=== PATIENT | male | born 1945 | race Caucasian/White ===

== ENCOUNTER → 2018-05-01 01:02 | Outpatient (CLI) | payer MEDICARE, MEDICAID, SELFPAY ==
[2018-05-01] MEDS: Omnipaque 350 MG/ML 50 ML BTL IJ (08:37)
[2018-05-01 08:50] LABS: HCT 38.6 % (40.0-50.0); HGB 13.1 g/dL (13.5-17.5); Mean Corp. HGB Concentration 33.9 g/dL (32.0-36.0); Mean Corpuscular Hemoglobin 28.6 pg (27.0-33.0); Mean Corpuscular Volume 84.3 fL (80-95); Mean Platelet Volume 11.1 fL (8.0-11.0); Platelet Count 252 x1000/uL (130-400); RBC 4.58 m/cumm (4.50-6.00); White Blood Cell Count 6.41 k/cumm (4.4-10.8)
[2018-05-01 09:05] LABS: ALT 30 U/L (12-78); AST 25 U/L (15-37); Albumin 3.3 g/dL (3.4-5.0); Alkaline Phosphatase 72 U/L (46-116); Anion Gap 6.4 mmol/L (3-11); BUN 16 mg/dL (7-18); Bilirubin, Total 0.5 mg/dL (0.2-1.0); CO2 26.6 mmol/L (21.0-32.0); CREATININE 1.04 mg/dL (0.70-1.30); Calcium 8.8 mg/dL (8.5-10.1); Chloride 102 mmol/L (98-107); Glucose 143 mg/dL (70-100); Potassium 3.8 mmol/L (3.5-5.1); Sodium 135 mmol/L (136-145); Total Protein 7.6 g/dL (6.4-8.2)
[2018-05-01] MEDS: Omnipaque 350 MG/ML 100 ML BTL IJ (10:08)
[2018-05-01] MEDS: Breeza Beverage 473 ML BTL PO ×2 (10:30)
--- NOTE | 2018-05-01 10:30 | DI.RPTCT_ITS ---
SYMPTOM/DIAGNOSIS: ABD PAIN, LOWER r10.30, RECTAL/ANAL BLEEDING K62.5 CT ABDOMEN AND PELVIS: This study was carried out with intravenous administration of 100 cc Omnipaque 350 and oral ingestion of dilute barium. There is a 5.3 mm nodule in the right upper lobe and a 7.0 nodule in the left lower lobe. The visualized portions of the lung are otherwise unremarkable. There is a 3.3 x 2.1 x 3.3 cm irregular mass in the superior portion of the right hepatic lobe and a second mass measuring 2.1 x 2.3 cm is identified in the inferior portion of the right hepatic lobe. The gallbladder, pancreas and spleen are unremarkable. The kidneys and adrenals are unremarkable. There is no evidence of bowel obstruction. The appendix is normal. There is prominent wall thickening and findings suggesting a rectal mass. No other localized bowel abnormality is identified. The bladder is normal. The prostate is mildly enlarged. There is no evidence of free air or free fluid in the intraperitoneal space. Small bilateral inguinal hernias are identified. There are atherosclerotic changes involving the aorta without evidence of an aneurysm. Degenerative changes involving the lower dorsal and lumbar spine are apparent. There is no evidence of intra-abdominal or retroperitoneal adenopathy. Note is made of an enlarged right hayley-rectal lymph node. SUMMARY: Two hepatic masses are demonstrated as described above. In the superior right hepatic lobe there is a 2.1 x 3.3 cm mass, in the inferior portion of the right hepatic lobe there is a 2.1 x 2.4 cm mass. A tiny radiolucency is noted in the left hepatic lobe, too small to fully characterize but likely representing a cyst. Further assessment with a multiphasic CT examination is suggested. Note is made of prominent thickening of the rectal wall with a probable rectal mass. At least one enlarged lymph node is noted lying to the left of the rectum. There is no other definite evidence of adenopathy in the abdomen or pelvis. There are two hepatic masses as described above and two pulmonary nodules are identified. Further assessment with chest CT and a multiphasic abdominal CT is recommended.
== END ==
PROVIDERS: PCP Physician Assistant Medical; Visit Provider Physician Assistant Medical
DX: R10.30 Lower abdominal pain, unspecified (principal); K62.5 Hemorrhage of anus and rectum; R16.0 Hepatomegaly, not elsewhere classified; R91.8 Other nonspecific abnormal finding of lung field; K62.89 Other specified diseases of anus and rectum; N40.0 Benign prostatic hyperplasia without lower urinary tract symptoms; R59.0 Localized enlarged lymph nodes
CPT/HCPCS: 74177; Q9967; 80053; 85027; J3490

== ENCOUNTER → 2018-05-13 01:54 | Outpatient (CLI) | payer MEDICARE, MEDICAID, SELFPAY ==
--- NOTE | 2018-05-13 14:21 | DI.RPTCT_ITS ---
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 Images were performed from the clavicles through the level of the adrenals after IV contrast. A large low density area is seen in the upper right lobe of the liver consistent with a liver metastasis. An additional liver lesion is seen inferiorly, also consistent with a metastasis. There is a tiny lesion in the anterior left lobe of the liver, consistent with a cyst. There is an AP window lymph node measuring 1.3 cm in greatest dimension. There is an 8 mm irregular, spiculated lesion in the lateral right middle lobe. An additional 8 mm nodule is seen in the medial right middle lobe near the right heart. Other smaller nodules are seen more superiorly. Multiple small nodules are also seen in the right lower lobe. There is a 9 mm nodule in the left lower lobe and multiple other smaller nodules seen in the left upper and lower lobes. No pleural or pericardial effusions or infiltrates are seen. No bony abnormalities are identified. IMPRESSION: Multiple bilateral pulmonary metastases.
[2018-05-13] MEDS: Omnipaque 350 MG/ML 100 ML BTL IJ (14:54)
== END ==
PROVIDERS: PCP Physician Assistant Medical; Visit Provider Surgery
DX: C20 Malignant neoplasm of rectum (principal); C78.7 Secondary malignant neoplasm of liver and intrahepatic bile duct; C78.01 Secondary malignant neoplasm of right lung; C78.02 Secondary malignant neoplasm of left lung
CPT/HCPCS: 71260; J3490

== ENCOUNTER 2018-05-30 08:15 | Day surgery (SDC) | payer MEDICARE, MEDICAID, SELFPAY | END 2018-05-30 10:50 | disposition home or self-care (01) | LOC: SUR 08:20 | PROVIDERS: PCP Physician Assistant Medical; Referring Provider Physician Assistant Medical; Visit Provider Surgery | DX: R69 Illness, unspecified (principal) ==

== ENCOUNTER 2018-05-30 08:17 | PSDC | payer MEDICARE, MEDICAID, SELFPAY ==
--- NOTE | 2018-05-30 06:39 | W.PM.HP.N ---
Date of service: 05/30/18 Time of Service: 09:00 Assessment and Plan (1) Rectal cancer: Current visit: Yes Status: Acute P\\ Mediport Placement for chemotherapy Risks, benefits and complications include but are not limited to bleeding, pain, infection, dehiscence, malfunction, injury to vessels, pneumothorax and adverse reaction to the medications. Questions were entertained and answered to their satisfaction and they wished to proceed. No guarantees were given or implied. History of Present Illness Chief Complaint: rectal cancer Narrative: Mr. Sylvester is a pleasant 73 year old male who was recently diagnosed with stage 4 rectal cancer. He has seen Hematology/Oncology and is here today to have a mediport placed for chemotherapy. He is doing fairly well today. No complaints of chest pain or shortness of breath. CT scan done recently showed pulmonary metastases, pelvic lymphadenopathy involving the seminal vessels. He is able to go to the bathroom but it is frequent. The mass is circumferential. Review of Systems Review of Systems All systems reviewed & are unremarkable except as noted in HPI and below PFSH Family History Other Burkitt's lymphoma Heart disease Lung cancer Medical History Rectal cancer metastasized to lung (Acute) Social History household members: significant other housing: house lives independently: Yes number of children: 2 Smoking/Tobacco Use Status: Former Tobacco Use alcohol intake: never Surgical History Colonoscopy - MAC (05/07/18) Meds Home Medications Medication Instructions Recorded Confirmed Type Turmeric/Turmeric Root Extract 1 ea PO DAILY 05/03/18 05/29/18 History [Turmeric 500 mg Capsule] omega-3 fatty acids-fish oil 1 ea PO DAILY 05/03/18 05/29/18 History Allergies Allergy/AdvReac Type Severity Reaction Status Date / Time No Known Allergies Allergy Unverified 05/30/18 08:35 Exam Resp Auscultation: clear to auscultation bilaterally Cardio Rate: regular rate Rhythm: regular rhythm GI Palpation: soft Auscultation: normal bowel sounds
--- NOTE | 2018-05-30 07:04 | W.PM.DSUDISC ---
Discharge Plan Discharge Details Reason For Visit: PORT- A - CATH PLACEMENT Attending Provider: Soha Osullivan Primary Care Provider: Hermes Dejesus V Disposition Patient Disposition: HOME Condition: Fair Home Meds and New Rx's Prescriptions: Continue omega-3 fatty acids-fish oil 1 EACH capsule 1 ea PO DAILY RF: 0 Turmeric/Turmeric Root Extract [Turmeric 500 mg Capsule] 1 EACH Capsule 1 ea PO DAILY RF: 0 Discharge Instructions Instructions: How to Care for Your Implanted Venous Access Port (DC) Additional Instructions: Please call or go to the ED if you develop: fevers >101.5 Nausea or Vomiting redness and swelling around the wound thick purulent discharge from the wound Other: May shower tonight Do not keep arms above your head for long periods of times. If you develop swelling in the left arm please call your manager advanced as you may have developed a clot. Stand Alone Forms: DSU Post op Instructions, Donavon Montes (DSU) Print Language: Indonesian Activity:: Activity as Tolerated Activity:: Activity as Tolerated Diet:: As Tolerated Discharge Orders Discharge Orders: Discharge Order (Routine); Ordered 05/30/18 Ordered By: Soha Osullivan DS: Diagnosis Discharge Diagnosis (1) Rectal cancer: Status: Acute
--- NOTE | 2018-05-30 07:07 | PDOC.DSDIS_ITS ---
Discharge Plan Discharge Details Reason For Visit: PORT- A - CATH PLACEMENT Attending Provider: Soha Osullivan Primary Care Provider: Hermes Dejesus V Disposition Patient Disposition: HOME Condition: Fair Home Meds and New Rx's Prescriptions: Continue omega-3 fatty acids-fish oil 1 EACH capsule 1 ea PO DAILY RF: 0 Turmeric/Turmeric Root Extract [Turmeric 500 mg Capsule] 1 EACH Capsule 1 ea PO DAILY RF: 0 Discharge Instructions Instructions: How to Care for Your Implanted Venous Access Port (DC) Additional Instructions: Please call or go to the ED if you develop: fevers >101.5 Nausea or Vomiting redness and swelling around the wound thick purulent discharge from the wound Other: May shower tonight Do not keep arms above your head for long periods of times. If you develop swelling in the left arm please call your comic illustrator as you may have developed a clot. Stand Alone Forms: DSU Post op Instructions, Donavon Montes (DSU) Print Language: Frisian Activity:: Activity as Tolerated Activity:: Activity as Tolerated Diet:: As Tolerated Discharge Orders Discharge Orders: Discharge Order (Routine); Ordered 05/30/18 Ordered By: Soha Osullivan DS: Diagnosis Discharge Diagnosis (1) Rectal cancer: Status: Acute
[2018-05-30 08:39] VITALS: BP 140/81; PULSE 68; RESP 16; TEMP 36.7; O2SAT 98
[2018-05-30] MEDS: Lactated Ringers 1,000 ML 80 ML IV (09:11)
--- NOTE | 2018-05-30 09:37 | DI.RAD_ITS ---
SYMPTOM/DIAGNOSIS: PORT PLACEMENT, RECTAL CA C-ARM: Fluoroscopy Time: 8 seconds Fluoroscopy was provided in the OR for Dr. Osullivan. Hard copy images show placement of a line with the tip projecting in the lower SVC. Please see procedure note for details.
[2018-05-30] MEDS: Lidocaine 2% Pres-Free 5 ML VIAL 30 ML (10:04)
[2018-05-30] MEDS: Normal Saline 50 ML (10:05)
[2018-05-30] MEDS: Heparin 500 UNITS/5 ML SYRINGE (10:17)
--- NOTE | 2018-05-30 10:30 | DI.RAD_ITS ---
SYMPTOM/DIAGNOSIS: RECTAL CA, PORTACATH PLACEMEN PORTABLE AP CHEST: A port has been inserted via the left subclavian. The tip lies in the lower SVC. No pneumothorax is seen. The lung apices are coned from the image. The lungs appear clear. The heart size is normal. IMPRESSION: Satisfactory Port placement.
--- NOTE | 2018-05-30 10:33 | NUR.NOTE ---
1024: Pt. sleepy but following commands. Radiology contacted for portable chest xray. Call forte within reach.Nursing Note:
[2018-05-30 10:55] VITALS: BP 126/74; PULSE 63; RESP 16; TEMP 36.6; O2SAT 97
--- NOTE | 2018-05-30 10:57 | W.PM.OP ---
Operative Note Date of procedure: 05/30/18 Pre-op diagnosis: rectal cancer Post-op diagnosis: same Procedure: Mediport placement in the left subclavian vein Anesthesia: MAC Estimated blood loss (mL): 3 Pathology: none sent Complications: None Patient was transported to: same day Patient's condition: stable Implants: Power Port Indications: Mr. Sylvester is a pleasant 72 year old who was just diagnosed with stage 4 rectal cancer. he is due to start chemotherapy next week and I was asked to place a Mediport. Risks, benefits and complications reviewed. Complications include but are not limited to bleeding, pain, infection, pneumothorax, wound dehiscence, skin necrosis, malfunction and injury to the subclavian vein. Procedure Description: After informed consent was obtained patient was taken to the operating room and placed in a supine position. Monitors were applied in his arms were tucked next to him. His left chest wall was prepped and draped in the sterile surgical fashion. A timeout was done and the patient's name date of procedure site and type allergies to medications antibiotic given were all reviewed. At this point percent Marcaine with epi was injected just underneath the clavicle. The Marcaine and epinephrine were also injected about 3 inches below the clavicle. Port-A-Cath cath kit was opened. The needle was used to find the left subclavian vein without any difficulty. The guidewire was placed without any resistance and the needle was removed. A chest film was done with fluoroscopy and it showed the guidewire in good position. A small incision was made at the guide wire entrance. Another 2-1/2 cm incision was made about 3 inches below the clavicle and a pocket was created with cautery. Next the catheter was tunneled from guide wire entrance to the pocket. The sheath and dilator were then placed over the guide wire into the subclavian vein dilator and guide wire were then both removed. The catheter was then guided through the sheath into the subclavian vein. Fluoroscopy was again used to look for the location of the catheter. The tip of the catheter was just above the atrium. At this point the catheter was attached to the port. The port was placed into the pocket and I made sure that the catheter was not kinked. The port was then flushed with heparin. The incision was closed with 4-0 Vicryl. The skin was cleaned and dried and skin affix was applied to both incisions. At this point the patient was woken up and taken back to same day surgery in stable condition. Sponge instrument and needle counts were correct at the end of the case. Chest x-ray is pending at the time of this dictation.
== END 2018-05-30 11:38 | disposition home or self-care (01) ==
PROVIDERS: PCP Physician Assistant Medical; Visit Provider Surgery
PROC: (CPT 36561; principal; 2018-05-30 09:15)
DX: C20 Malignant neoplasm of rectum (principal); Z45.2 Encounter for adjustment and management of vascular access device
CPT/HCPCS: 36561; 71045; 77001; NC; C1788; J0690; J2250; J3010

== ENCOUNTER 2018-06-21 00:41 | Outpatient (RCR) | payer MEDICARE, MEDICAID, SELFPAY ==
[2018-06-07] MEDS: Normal Saline Flush 10 ML SYR IVP (08:06)
[2018-06-07 08:29] LABS: Abs Immature Grans 0.01 k/cumm (0.0-0.09); Absolute Basophil Count 0.06 k/cumm (0.0-0.2); Absolute Eosinophil Count 0.34 k/cumm (0.0-0.7); Absolute Lymphocyte Count 1.44 k/cumm (1.2-3.4); Absolute Monocyte Count 0.65 k/cumm (0.11-0.7); Absolute Neutrophil Count 3.89 k/cumm (1.2-6.7); Basophils % 0.9; Eosinophils % 5.3; HCT 37.6 % (40.0-50.0); HGB 12.7 g/dL (13.5-17.5); Immature Grans % 0.2; Lymphocytes % 22.5; Mean Corp. HGB Concentration 33.8 g/dL (32.0-36.0); Mean Corpuscular Hemoglobin 28.5 pg (27.0-33.0); Mean Corpuscular Volume 84.5 fL (80-95); Mean Platelet Volume 12.1 fL (8.0-11.0); Monocytes % 10.2; Neutrophils % 60.9; Platelet Count 226 x1000/uL (130-400); RBC 4.45 m/cumm (4.50-6.00); White Blood Cell Count 6.39 k/cumm (4.4-10.8)
[2018-06-07 08:40] LABS: ALT 29 U/L (12-78); AST 23 U/L (15-37); Albumin 3.3 g/dL (3.4-5.0); Alkaline Phosphatase 77 U/L (46-116); Anion Gap 8.8 mmol/L (3-11); BUN 24 mg/dL (7-18); Bilirubin, Total 0.7 mg/dL (0.2-1.0); CO2 27.2 mmol/L (21.0-32.0); CREATININE 0.89 mg/dL (0.70-1.30); Calcium 8.5 mg/dL (8.5-10.1); Chloride 103 mmol/L (98-107); Glucose 159 mg/dL (70-100); Sodium 139 mmol/L (136-145); Total Protein 7.5 g/dL (6.4-8.2)
[2018-06-10 10:41] LABS: CEA 9.5 ng/ml
[2018-06-21] MEDS: Normal Saline Flush 10 ML SYR IVP (07:05)
[2018-06-21 07:26] LABS: Absolute Basophil Count 0.05 k/cumm (0.0-0.2); Absolute Eosinophil Count 0.26 k/cumm (0.0-0.7); Absolute Lymphocyte Count 1.37 k/cumm (1.2-3.4); Absolute Monocyte Count 0.55 k/cumm (0.11-0.7); Absolute Neutrophil Count 1.99 k/cumm (1.2-6.7); Basophils % 1.2; Eosinophils % 6.2; HCT 35.6 % (40.0-50.0); HGB 12.1 g/dL (13.5-17.5); Lymphocytes % 32.5; Mean Corpuscular Hemoglobin 28.6 pg (27.0-33.0); Mean Corpuscular Volume 84.2 fL (80-95); Mean Platelet Volume 10.6 fL (8.0-11.0); Neutrophils % 47.1; Platelet Count 176 x1000/uL (130-400); RBC 4.23 m/cumm (4.50-6.00); RBC Distribution Width 12.9 % (11.8-14.1); White Blood Cell Count 4.22 k/cumm (4.4-10.8)
[2018-06-21 07:36] LABS: ALT 30 U/L (12-78); AST 19 U/L (15-37); Albumin 3.2 g/dL (3.4-5.0); Alkaline Phosphatase 93 U/L (46-116); Anion Gap 10.1 mmol/L (3-11); BUN 21 mg/dL (7-18); Bilirubin, Total 0.5 mg/dL (0.2-1.0); CO2 25.9 mmol/L (21.0-32.0); CREATININE 1.25 mg/dL (0.70-1.30); Calcium 8.8 mg/dL (8.5-10.1); Chloride 101 mmol/L (98-107); Estimated GFR 56.62 (mL/min/1.73m2); Glucose 183 mg/dL (70-100); Sodium 137 mmol/L (136-145)
[2018-06-24 10:46] LABS: CEA 6.9 ng/ml
== END 2018-06-23 23:59 | disposition home or self-care (01) ==
LOC: INF 00:41
PROVIDERS: PCP Physician Assistant Medical; Visit Provider Internal Medicine Hematology & Oncology
DX: C20 Malignant neoplasm of rectum (principal); C78.7 Secondary malignant neoplasm of liver and intrahepatic bile duct; Z45.2 Encounter for adjustment and management of vascular access device
CPT/HCPCS: 36415; 36591; 80053; 82378; 85025

== ENCOUNTER 2018-07-19 01:10 | Outpatient (RCR) | payer MEDICARE, MEDICAID, SELFPAY ==
[2018-07-05] MEDS: Normal Saline Flush 10 ML SYR IVP (08:45)
[2018-07-05 09:05] LABS: Abs Immature Grans 0.01 k/cumm (0.0-0.09); Absolute Basophil Count 0.06 k/cumm (0.0-0.2); Absolute Eosinophil Count 0.07 k/cumm (0.0-0.7); Absolute Lymphocyte Count 1.27 k/cumm (1.2-3.4); Absolute Monocyte Count 0.59 k/cumm (0.11-0.7); Absolute Neutrophil Count 1.35 k/cumm (1.2-6.7); Basophils % 1.8; Eosinophils % 2.1; HCT 35.5 % (40.0-50.0); HGB 12.4 g/dL (13.5-17.5); Immature Grans % 0.3; Lymphocytes % 37.9; Mean Corp. HGB Concentration 34.9 g/dL (32.0-36.0); Mean Corpuscular Volume 82.9 fL (80-95); Mean Platelet Volume 10.5 fL (8.0-11.0); Monocytes % 17.6; Neutrophils % 40.3; Platelet Count 147 x1000/uL (130-400); RBC 4.28 m/cumm (4.50-6.00); RBC Distribution Width 13.7 % (11.8-14.1); White Blood Cell Count 3.35 k/cumm (4.4-10.8)
[2018-07-05 09:20] LABS: ALT 34 U/L (12-78); AST 21 U/L (15-37); Albumin 3.2 g/dL (3.4-5.0); Alkaline Phosphatase 96 U/L (46-116); Anion Gap 9.2 mmol/L (3-11); BUN 16 mg/dL (7-18); Bilirubin, Total 0.5 mg/dL (0.2-1.0); CO2 25.8 mmol/L (21.0-32.0); CREATININE 0.99 mg/dL (0.70-1.30); Calcium 8.6 mg/dL (8.5-10.1); Chloride 103 mmol/L (98-107); Glucose 166 mg/dL (70-100); Potassium 3.9 mmol/L (3.5-5.1); Sodium 138 mmol/L (136-145); Total Protein 7.1 g/dL (6.4-8.2)
[2018-07-05 09:24] LABS: Diff Comment Diff Reviewed; RBC Morphology Normal
[2018-07-08 10:06] LABS: CEA 5.3 ng/ml
[2018-07-19] MEDS: Normal Saline Flush 10 ML SYR IVP (07:30)
[2018-07-19 08:07] LABS: Absolute Basophil Count 0.06 k/cumm (0.0-0.2); Absolute Lymphocyte Count 1.23 k/cumm (1.2-3.4); Absolute Monocyte Count 0.44 k/cumm (0.11-0.7); Absolute Neutrophil Count 0.83 k/cumm (1.2-6.7); Basophils % 2.3; Eosinophils % 3.8; HCT 36.7 % (40.0-50.0); HGB 12.4 g/dL (13.5-17.5); Lymphocytes % 46.2; Mean Corp. HGB Concentration 33.8 g/dL (32.0-36.0); Mean Corpuscular Hemoglobin 28.5 pg (27.0-33.0); Mean Corpuscular Volume 84.4 fL (80-95); Mean Platelet Volume 10.8 fL (8.0-11.0); Monocytes % 16.5; Neutrophils % 31.2; Platelet Count 115 x1000/uL (130-400); RBC 4.35 m/cumm (4.50-6.00); RBC Distribution Width 15.1 % (11.8-14.1); White Blood Cell Count 2.66 k/cumm (4.4-10.8)
[2018-07-19 08:24] LABS: ALT 39 U/L (12-78); AST 27 U/L (15-37); Albumin 3.2 g/dL (3.4-5.0); Alkaline Phosphatase 76 U/L (46-116); Anion Gap 11.6 mmol/L (3-11); BUN 17 mg/dL (7-18); CO2 25.4 mmol/L (21.0-32.0); CREATININE 1.11 mg/dL (0.70-1.30); Calcium 8.5 mg/dL (8.5-10.1); Chloride 101 mmol/L (98-107); Glucose 203 mg/dL (70-100); Sodium 138 mmol/L (136-145); Total Protein 6.8 g/dL (6.4-8.2)
[2018-07-22 05:39] LABS: Vitamin D 25 Total 17.6 ng/ml (30-100)
[2018-07-22 10:12] LABS: CEA 4.6 ng/ml
[2018-07-29 14:55] LABS: 1,25-Dihydroxyvitamin D 41 pg/mL (18-64)
== END 2018-07-24 23:59 | disposition home or self-care (01) ==
LOC: INF 01:10
PROVIDERS: PCP Physician Assistant Medical; Visit Provider Internal Medicine Hematology & Oncology
DX: C20 Malignant neoplasm of rectum (principal); C78.7 Secondary malignant neoplasm of liver and intrahepatic bile duct; E55.9 Vitamin D deficiency, unspecified; Z45.2 Encounter for adjustment and management of vascular access device
CPT/HCPCS: 36591; 80053; 82306; 82378; 82652; 85025

== ENCOUNTER 2018-08-12 00:29 | Outpatient (CLI) | payer MEDICARE, MEDICAID, SELFPAY ==
--- NOTE | 2018-08-12 11:44 | DI.CT_ITS ---
SYMPTOM/DIAGNOSIS: ON TREATMENT FOR METASTATIC COLON CA, ASSESS RESPONSE CHEST/ABDOMEN AND PELVIC CT: CT examination of the chest, abdomen and pelvis was performed with a bolus infusion of 100 cc's of Omnipaque 350 and ingestion of dilute barium. Current examination is compared with previous examination of 05/13/2018 and 05/01/2018. Biphasic hepatic imaging was obtained. There are multiple bilateral intrapulmonary nodules, these appear mostly unchanged or of decreased radiodensity in comparison with previous examination of 05/13, cavitation is noted in the left lower lobe nodule which may indicate necrosis. A 7 mm. in diameter left basilar intrapulmonary nodule is unchanged in appearance. No significant interval growth in any nodule is identified. No evidence of pulmonary embolic disease or other major vascular abnormality. The largest visible mediastinal lymph node is a 19 mm. in diameter AP window node slightly more prominent than on the previous examination but grossly unchanged in maximum size. No pleural effusion is seen. Tracheobronchial tree appears intact. No axillary or supraclavicular adenopathy. The previously described hepatic lesions seen on examination of 05/01/18 are again noted. These measured 33 and 24 mm. in diameter on the previous examination and are essentially unchanged in size on the current study measuring about 32 and 29 mm. in diameter on the current study. Spleen is unremarkable in appearance. No definite new hepatic lesion is seen. Pancreas is unremarkable in appearance. Adrenals and kidneys appear normal. Abdominal aorta is of normal diameter and no major vascular abnormality is seen. Small bilateral fat containing inguinal hernias noted. Mildly enlarged lymph nodes are noted superior to the celiac axis measuring about 15 mm. in greatest diameter which were not enlarged on the previous examination. Subtle adenopathy is noted in the iliac chains bilaterally a little more prominent than on the previous examination. Enlarged nodes are also seen adjacent to the rectum, the largest of which measures about 11 mm. in greatest diameter on today 's examination, grossly unchanged from the previous examination.. No evidence of bowel obstruction. CONCLUSION: 1. Multiple intrapulmonary nodules which appear grossly unchanged in size in comparison with the previous examination with decreased radiodensity of several nodules including a cavitating nodule probably representing necrosis. No new nodules or gross enlargement is seen. 2. No gross interval change in appearance of presumed right lobe hepatic metastases. 3. Increased annmarie prominence in portal/celiac axis nodes in the upper abdomen. 4. No gross interval change in adenopathy in the pelvis.
[2018-08-12] MEDS: Omnipaque 350 MG/ML 100 ML BTL IV (11:57)
== END 2018-08-12 00:49 ==
PROVIDERS: PCP Physician Assistant Medical; Visit Provider Nurse Practitioner Adult Health
DX: C20 Malignant neoplasm of rectum (principal); C78.7 Secondary malignant neoplasm of liver and intrahepatic bile duct; C78.01 Secondary malignant neoplasm of right lung; C78.02 Secondary malignant neoplasm of left lung; R91.8 Other nonspecific abnormal finding of lung field; R59.0 Localized enlarged lymph nodes; Z92.21 Personal history of antineoplastic chemotherapy
CPT/HCPCS: 36415; 74177; 96523; 71260; 82565; J3490

== ENCOUNTER 2018-08-16 00:46 | Outpatient (RCR) | payer MEDICARE, MEDICAID, SELFPAY ==
[2018-07-26] MEDS: Normal Saline Flush 10 ML SYR IVP (08:05)
[2018-07-26 08:27] LABS: Abs Immature Grans 0.04 k/cumm (0.0-0.09); Absolute Basophil Count 0.08 k/cumm (0.0-0.2); Absolute Eosinophil Count 0.16 k/cumm (0.0-0.7); Absolute Lymphocyte Count 1.55 k/cumm (1.2-3.4); Absolute Monocyte Count 1.03 k/cumm (0.11-0.7); Absolute Neutrophil Count 0.95 k/cumm (1.2-6.7); Basophils % 2.1; Eosinophils % 4.2; HCT 37.9 % (40.0-50.0); HGB 13.1 g/dL (13.5-17.5); Lymphocytes % 40.7; Mean Corp. HGB Concentration 34.6 g/dL (32.0-36.0); Mean Corpuscular Hemoglobin 29.6 pg (27.0-33.0); Mean Corpuscular Volume 85.7 fL (80-95); Platelet Count 210 x1000/uL (130-400); RBC 4.42 m/cumm (4.50-6.00); RBC Distribution Width 16.4 % (11.8-14.1); White Blood Cell Count 3.81 k/cumm (4.4-10.8)
[2018-07-26 08:42] LABS: ALT 42 U/L (12-78); AST 29 U/L (15-37); Albumin 3.2 g/dL (3.4-5.0); Alkaline Phosphatase 84 U/L (46-116); Anion Gap 10.2 mmol/L (3-11); BUN 13 mg/dL (7-18); Bilirubin, Total 0.6 mg/dL (0.2-1.0); CO2 26.8 mmol/L (21.0-32.0); CREATININE 1.19 mg/dL (0.70-1.30); Calcium 8.9 mg/dL (8.5-10.1); Chloride 99 mmol/L (98-107); Estimated GFR 59.76 (mL/min/1.73m2); Glucose 230 mg/dL (70-100); Potassium 4.2 mmol/L (3.5-5.1); Sodium 136 mmol/L (136-145)
[2018-08-02] MEDS: Normal Saline Flush 10 ML SYR IVP (08:15)
[2018-08-02 08:40] LABS: Abs Immature Grans 0.04 k/cumm (0.0-0.09); Absolute Basophil Count 0.05 k/cumm (0.0-0.2); Absolute Eosinophil Count 0.14 k/cumm (0.0-0.7); Absolute Monocyte Count 0.78 k/cumm (0.11-0.7); Absolute Neutrophil Count 3.54 k/cumm (1.2-6.7); Basophils % 0.8; Eosinophils % 2.2; HCT 39.2 % (40.0-50.0); HGB 13.3 g/dL (13.5-17.5); Immature Grans % 0.6; Lymphocytes % 28.3; Mean Corp. HGB Concentration 33.9 g/dL (32.0-36.0); Mean Corpuscular Hemoglobin 29.4 pg (27.0-33.0); Mean Corpuscular Volume 86.7 fL (80-95); Mean Platelet Volume 11.5 fL (8.0-11.0); Monocytes % 12.3; Neutrophils % 55.8; Platelet Count 173 x1000/uL (130-400); RBC 4.52 m/cumm (4.50-6.00); RBC Distribution Width 16.7 % (11.8-14.1); White Blood Cell Count 6.35 k/cumm (4.4-10.8)
[2018-08-02 09:01] LABS: ALT 40 U/L (12-78); AST 29 U/L (15-37); Albumin 3.2 g/dL (3.4-5.0); Alkaline Phosphatase 76 U/L (46-116); Anion Gap 9.6 mmol/L (3-11); BUN 18 mg/dL (7-18); Bilirubin, Total 0.4 mg/dL (0.2-1.0); CO2 26.4 mmol/L (21.0-32.0); CREATININE 1.05 mg/dL (0.70-1.30); Calcium 8.8 mg/dL (8.5-10.1); Chloride 102 mmol/L (98-107); Glucose 170 mg/dL (70-100); Sodium 138 mmol/L (136-145); Total Protein 7.1 g/dL (6.4-8.2)
[2018-08-05 10:01] LABS: CEA 3.9 ng/ml
[2018-08-12] MEDS: Normal Saline Flush 10 ML SYR IVP (09:10)
[2018-08-12] MEDS: Heparin 500 UNITS/5 ML SYRINGE IV (10:10)
[2018-08-12 10:47] LABS: CREATININE 1.04 mg/dL (0.70-1.30)
[2018-08-16] MEDS: Normal Saline Flush 10 ML SYR IVP (10:12)
[2018-08-16] MEDS: Heparin 500 UNITS/5 ML SYRINGE IV (10:13)
[2018-08-16 10:17] LABS: Abs Immature Grans 0.22 k/cumm (0.0-0.09); Absolute Eosinophil Count 0.43 k/cumm (0.0-0.7); Absolute Lymphocyte Count 2.33 k/cumm (1.2-3.4); Absolute Monocyte Count 1.12 k/cumm (0.11-0.7); Basophils % 0.9; Eosinophils % 3.4; HGB 13.5 g/dL (13.5-17.5); Immature Grans % 1.7; Lymphocytes % 18.3; Mean Corp. HGB Concentration 34.6 g/dL (32.0-36.0); Mean Corpuscular Hemoglobin 30.3 pg (27.0-33.0); Mean Corpuscular Volume 87.4 fL (80-95); Mean Platelet Volume 11.3 fL (8.0-11.0); Monocytes % 8.8; Neutrophils % 66.9; Platelet Count 119 x1000/uL (130-400); RBC 4.46 m/cumm (4.50-6.00); RBC Distribution Width 17.7 % (11.8-14.1); White Blood Cell Count 12.73 k/cumm (4.4-10.8)
[2018-08-16 10:19] LABS: Absolute Basophil Count 0.11 k/cumm (0.0-0.2); Absolute Neutrophil Count 8.52 k/cumm (1.2-6.7)
[2018-08-16 10:32] LABS: ALT 37 U/L (12-78); AST 24 U/L (15-37); Albumin 3.6 g/dL (3.4-5.0); Alkaline Phosphatase 138 U/L (46-116); Anion Gap 10.6 mmol/L (3-11); BUN 19 mg/dL (7-18); Bilirubin, Total 0.5 mg/dL (0.2-1.0); CO2 25.4 mmol/L (21.0-32.0); CREATININE 1.11 mg/dL (0.70-1.30); Chloride 103 mmol/L (98-107); Glucose 140 mg/dL (70-100); Potassium 4.2 mmol/L (3.5-5.1); Sodium 139 mmol/L (136-145); Total Protein 7.4 g/dL (6.4-8.2)
[2018-08-19 10:38] LABS: CEA 4.7 ng/ml
== END 2018-08-23 23:59 | disposition home or self-care (01) ==
LOC: INF 00:46
PROVIDERS: PCP Physician Assistant Medical; Visit Provider Internal Medicine Hematology & Oncology
DX: C20 Malignant neoplasm of rectum (principal); C78.7 Secondary malignant neoplasm of liver and intrahepatic bile duct; Z45.2 Encounter for adjustment and management of vascular access device
CPT/HCPCS: 36415; 36591; 80053; 96523; 82378; 82565; 85025

== ENCOUNTER 2018-09-13 01:31 | Outpatient (RCR) | payer MEDICARE, MEDICAID, SELFPAY ==
[2018-08-30] MEDS: Normal Saline Flush 10 ML SYR IVP (08:35)
[2018-08-30 08:39] LABS: Abs Immature Grans 0.65 k/cumm (0.0-0.09); HCT 38.6 % (40.0-50.0); HGB 13.3 g/dL (13.5-17.5); Mean Corp. HGB Concentration 34.5 g/dL (32.0-36.0); Mean Corpuscular Hemoglobin 30.5 pg (27.0-33.0); Mean Corpuscular Volume 88.5 fL (80-95); Mean Platelet Volume 11.3 fL (8.0-11.0); Platelet Count 110 x1000/uL (130-400); RBC 4.36 m/cumm (4.50-6.00); RBC Distribution Width 18.7 % (11.8-14.1); White Blood Cell Count 15.75 k/cumm (4.4-10.8)
[2018-08-30 08:50] LABS: Absolute Basophil Count 0.16 k/cumm (0.0-0.2)
[2018-08-30 08:54] LABS: ALT 50 U/L (12-78); AST 33 U/L (15-37); Albumin 3.4 g/dL (3.4-5.0); Alkaline Phosphatase 179 U/L (46-116); Anion Gap 9.3 mmol/L (3-11); BUN 17 mg/dL (7-18); Bilirubin, Total 0.6 mg/dL (0.2-1.0); CO2 25.7 mmol/L (21.0-32.0); CREATININE 1.21 mg/dL (0.70-1.30); Calcium 8.8 mg/dL (8.5-10.1); Chloride 102 mmol/L (98-107); Estimated GFR 58.62 (mL/min/1.73m2); Glucose 197 mg/dL (70-100); Potassium 3.7 mmol/L (3.5-5.1); Sodium 137 mmol/L (136-145); Total Protein 6.9 g/dL (6.4-8.2)
[2018-08-30 09:00] LABS: Absolute Lymphocyte Count 2.05 k/cumm (1.2-3.4); Absolute Monocyte Count 0.95 k/cumm (0.11-0.7); Absolute Neutrophil Count 12.29 k/cumm (1.2-6.7)
[2018-08-30 09:01] LABS: Absolute Eosinophil Count 0.16 k/cumm (0.0-0.7); Anisocytosis 1+; Diff Comment Diff Reviewed; Polychromasia Present
[2018-09-02 09:37] LABS: CEA 4.5 ng/ml
[2018-09-13] MEDS: Normal Saline Flush 10 ML SYR IVP (10:37)
[2018-09-13] MEDS: Heparin 500 UNITS/5 ML SYRINGE IV (10:37)
[2018-09-13 11:02] LABS: Abs Immature Grans 0.66 k/cumm (0.0-0.09); HCT 39.6 % (40.0-50.0); HGB 13.7 g/dL (13.5-17.5); Mean Corp. HGB Concentration 34.6 g/dL (32.0-36.0); Mean Corpuscular Hemoglobin 31.3 pg (27.0-33.0); Mean Corpuscular Volume 90.4 fL (80-95); Mean Platelet Volume 11.2 fL (8.0-11.0); RBC 4.38 m/cumm (4.50-6.00); RBC Distribution Width 18.9 % (11.8-14.1); White Blood Cell Count 18.58 k/cumm (4.4-10.8)
[2018-09-13 11:17] LABS: ALT 70 U/L (12-78); AST 41 U/L (15-37); Albumin 3.5 g/dL (3.4-5.0); Alkaline Phosphatase 231 U/L (46-116); Anion Gap 9.9 mmol/L (3-11); BUN 16 mg/dL (7-18); Bilirubin, Total 0.7 mg/dL (0.2-1.0); CO2 26.1 mmol/L (21.0-32.0); CREATININE 1.21 mg/dL (0.70-1.30); Calcium 9.3 mg/dL (8.5-10.1); Chloride 103 mmol/L (98-107); Estimated GFR 58.62 (mL/min/1.73m2); Glucose 189 mg/dL (70-100); Sodium 139 mmol/L (136-145); Total Protein 7.2 g/dL (6.4-8.2)
[2018-09-13 11:28] LABS: Platelet Count 95 x1000/uL (130-400)
[2018-09-13 11:29] LABS: Absolute Eosinophil Count 0.37 k/cumm (0.0-0.7); Absolute Lymphocyte Count 2.79 k/cumm (1.2-3.4); Absolute Monocyte Count 1.49 k/cumm (0.11-0.7); Absolute Neutrophil Count 13.38 k/cumm (1.2-6.7); Anisocytosis 2+; Atypical Lymphocytes % 1; Diff Comment Manual Differential
[2018-09-13 11:30] LABS: Polychromasia Present
[2018-09-16 10:14] LABS: CEA 4.2 ng/ml
[2018-09-19 10:01] LABS: Abs Immature Grans 0.11 k/cumm (0.0-0.09); Absolute Eosinophil Count 0.37 k/cumm (0.0-0.7); Absolute Neutrophil Count 8.83 k/cumm (1.2-6.7); Basophils % 0.8; Eosinophils % 2.9; HCT 39.2 % (40.0-50.0); HGB 13.5 g/dL (13.5-17.5); Immature Grans % 0.9; Lymphocytes % 16.7; Mean Corp. HGB Concentration 34.4 g/dL (32.0-36.0); Mean Corpuscular Hemoglobin 31.6 pg (27.0-33.0); Mean Corpuscular Volume 91.8 fL (80-95); Mean Platelet Volume 12.6 fL (8.0-11.0); Monocytes % 8.7; Platelet Count 126 x1000/uL (130-400); RBC 4.27 m/cumm (4.50-6.00); RBC Distribution Width 18.8 % (11.8-14.1); White Blood Cell Count 12.61 k/cumm (4.4-10.8)
[2018-09-19 10:05] LABS: Absolute Lymphocyte Count 2.11 k/cumm (1.2-3.4)
[2018-09-19 10:15] LABS: ALT 53 U/L (12-78); AST 32 U/L (15-37); Albumin 3.4 g/dL (3.4-5.0); Alkaline Phosphatase 149 U/L (46-116); Anion Gap 10.9 mmol/L (3-11); BUN 20 mg/dL (7-18); Bilirubin, Total 0.7 mg/dL (0.2-1.0); CO2 25.1 mmol/L (21.0-32.0); CREATININE 1.02 mg/dL (0.70-1.30); Chloride 102 mmol/L (98-107); Glucose 169 mg/dL (70-100); Potassium 3.8 mmol/L (3.5-5.1); Sodium 138 mmol/L (136-145); Total Protein 7.1 g/dL (6.4-8.2)
== END 2018-09-23 23:59 | disposition home or self-care (01) ==
LOC: INF 01:31
PROVIDERS: PCP Physician Assistant Medical; Visit Provider Internal Medicine Hematology & Oncology
DX: C20 Malignant neoplasm of rectum (principal); C78.7 Secondary malignant neoplasm of liver and intrahepatic bile duct
CPT/HCPCS: 36591; 80053; 82378; 85025

== ENCOUNTER 2018-09-19 09:58 | Outpatient (REF) | payer MEDICARE, MEDICAID, SELFPAY | END 2018-09-19 10:18 | LOC: LBN 09:58 | PROVIDERS: PCP Physician Assistant Medical; Visit Provider Internal Medicine Hematology & Oncology | DX: C20 Malignant neoplasm of rectum (principal); C78.7 Secondary malignant neoplasm of liver and intrahepatic bile duct ==

== ENCOUNTER 2018-10-14 00:39 | Outpatient (CLI) | payer MEDICARE, MEDICAID, SELFPAY ==
--- NOTE | 2018-10-14 14:00 | DI.CT_ITS ---
SYMPTOMS/DIAGNOSIS: STAGE IV COLON CA WITH METS TO LUNG, C18.9, C78.00, ON CHEMO, RESTAGING CT SCAN OF THE CHEST, ABDOMEN AND PELVIS: CT scan of the chest, abdomen and pelvis was performed following the uneventful administration of intravenous and oral contrast material. Comparison is 08/12/18. CT SCAN OF THE ABDOMEN AND PELVIS: The liver is normal in size. There are again seen hepatic masses. The mass in the dome of the right lobe of the liver is again seen. It measures 3.2 cm in AP diameter which is unchanged compared to the prior examination. The lesion in the caudal aspect of the liver measures 2.9 cm which is unchanged. There are a few smaller tiny hypodense lesions scattered throughout the liver which appear stable. The portal, superior mesenteric and splenic veins are all patent. The gallbladder is negative. There is no biliary ductal dilatation. The pancreas and peripancreatic soft tissues are unremarkable as are the spleen and adrenal glands. The kidneys show normal and symmetric enhancement. No suspicious solid renal mass or obstruction is identified. The urinary bladder is intact. The reproductive organs are unremarkable. There is mild atherosclerosis of the abdominal aorta but no aneurysmal dilatation is seen. No significant abdominal or pelvic ascites or pneumoperitoneum is present. Bilateral fatty containing inguinal hernia are again noted. There is a large amount of stool seen in the colon. This is most suggestive of constipation. There is no evidence of bowel obstruction or bowel inflammatory or infectious process. There is a normal appendix present. The mildly enlarged lymph node superior to the celiac axis is unchanged. No significant abdominal or pelvic adenopathy is appreciated. Note is made of a small hiatal hernia. Degenerative changes are present in the spine. There is ankylosis of the sacroiliac joints bilaterally. No aggressive osseous lesions are identified. IMPRESSION: 1. Stable hepatic masses presumed metastases. 2. No new abdominal or pelvic mass or adenopathy. CT SCAN OF THE CHEST: There are multiple nodules seen in the thyroid gland. Nonemergent thyroid ultrasound may be obtained for further evaluation. The thoracic aorta is intact. No significant aneurysmal dilatation is seen. The heart size is within normal limits. No significant pericardial effusion is present. There is an indwelling catheter in good position. Mildly enlarged lymph nodes are again seen in the mediastinum. The largest is seen in the AP window and measures 1.9 cm in length x 1 cm in short diameter. This is unchanged. No new enlarged thoracic lymph nodes are identified. There is no pleural effusion or pneumothorax present. The tracheobronchial tree is unremarkable. No focal consolidating infiltrates are identified. There are again seen pulmonary nodules. The largest in the left lobe measures 0.8 cm. This is unchanged compared to the prior examination. There is a nodule seen in the lateral aspect of the left upper lobe which appears stable in size. There is a stable nodule seen in the superior segment of the right lower lobe. There do not appear to be any new pulmonary nodules present. There are degenerative changes seen in the spine. IMPRESSION: Stable pulmonary nodules since 08/12/18.
[2018-10-14] MEDS: Breeza Beverage 473 ML BTL PO ×2 (14:48→14:49)
[2018-10-14] MEDS: Omnipaque 350 MG/ML 50 ML BTL PO (14:49)
[2018-10-14] MEDS: Omnipaque 350 MG/ML 100 ML BTL IV (14:50)
== END 2018-10-14 00:59 ==
PROVIDERS: PCP Physician Assistant Medical; Visit Provider Internal Medicine Hematology & Oncology
DX: C18.9 Malignant neoplasm of colon, unspecified (principal); C78.00 Secondary malignant neoplasm of unspecified lung; Z92.21 Personal history of antineoplastic chemotherapy; C78.7 Secondary malignant neoplasm of liver and intrahepatic bile duct; K59.00 Constipation, unspecified; E04.2 Nontoxic multinodular goiter; R59.0 Localized enlarged lymph nodes; R91.8 Other nonspecific abnormal finding of lung field; K44.9 Diaphragmatic hernia without obstruction or gangrene; K40.90 Unilateral inguinal hernia, without obstruction or gangrene, not specified as recurrent
CPT/HCPCS: 74177; 71260; J3490; Q9967

== ENCOUNTER 2018-10-18 00:51 | Outpatient (RCR) | payer MEDICARE, MEDICAID, SELFPAY ==
[2018-10-04] MEDS: Normal Saline Flush 10 ML SYR IVP (10:40)
[2018-10-04 10:58] LABS: Abs Immature Grans 0.04 k/cumm (0.0-0.09); Absolute Basophil Count 0.07 k/cumm (0.0-0.2); Absolute Eosinophil Count 0.33 k/cumm (0.0-0.7); Absolute Lymphocyte Count 1.85 k/cumm (1.2-3.4); Absolute Monocyte Count 0.74 k/cumm (0.11-0.7); Absolute Neutrophil Count 6.69 k/cumm (1.2-6.7); Basophils % 0.7; Eosinophils % 3.4; HCT 40.5 % (40.0-50.0); HGB 13.8 g/dL (13.5-17.5); Immature Grans % 0.4; Mean Corp. HGB Concentration 34.1 g/dL (32.0-36.0); Mean Platelet Volume 12.1 fL (8.0-11.0); Monocytes % 7.6; Neutrophils % 68.9; Platelet Count 100 x1000/uL (130-400); RBC 4.31 m/cumm (4.50-6.00); RBC Distribution Width 18.3 % (11.8-14.1); White Blood Cell Count 9.72 k/cumm (4.4-10.8)
[2018-10-04 11:10] LABS: ALT 51 U/L (12-78); AST 29 U/L (15-37); Albumin 3.5 g/dL (3.4-5.0); Alkaline Phosphatase 176 U/L (46-116); Anion Gap 9.9 mmol/L (3-11); BUN 13 mg/dL (7-18); Bilirubin, Total 0.8 mg/dL (0.2-1.0); CO2 25.1 mmol/L (21.0-32.0); CREATININE 1.18 mg/dL (0.70-1.30); Calcium 9.1 mg/dL (8.5-10.1); Chloride 102 mmol/L (98-107); Glucose 193 mg/dL (70-100); Potassium 4.3 mmol/L (3.5-5.1); Sodium 137 mmol/L (136-145); Total Protein 7.3 g/dL (6.4-8.2)
[2018-10-07 08:29] LABS: CEA 4.5 ng/ml
[2018-10-14] MEDS: Normal Saline Flush 10 ML SYR IVP (12:04)
[2018-10-18] MEDS: Heparin 500 UNITS/5 ML SYRINGE IV (10:29)
[2018-10-18] MEDS: Normal Saline Flush 10 ML SYR IVP (10:29)
[2018-10-18 11:18] LABS: Iron 123 ug/dL (50-175); Total Iron Binding Capacity 307 ug/dL (250-450); Transferrin Sat 40 % (20-55)
[2018-10-18 11:20] LABS: Abs Immature Grans 0.08 k/cumm (0.0-0.09); Absolute Basophil Count 0.08 k/cumm (0.0-0.2); Absolute Eosinophil Count 0.19 k/cumm (0.0-0.7); Absolute Lymphocyte Count 1.62 k/cumm (1.2-3.4); Absolute Monocyte Count 0.99 k/cumm (0.11-0.7); Basophils % 0.7; Eosinophils % 1.7; HCT 39.1 % (40.0-50.0); HGB 13.4 g/dL (13.5-17.5); Immature Grans % 0.7; Lymphocytes % 14.5; Mean Corp. HGB Concentration 34.3 g/dL (32.0-36.0); Mean Corpuscular Hemoglobin 32.9 pg (27.0-33.0); Mean Corpuscular Volume 96.1 fL (80-95); Monocytes % 8.9; Neutrophils % 73.5; RBC 4.07 m/cumm (4.50-6.00); RBC Distribution Width 16.7 % (11.8-14.1); White Blood Cell Count 11.14 k/cumm (4.4-10.8)
[2018-10-18 11:29] LABS: ALT 52 U/L (12-78); AST 35 U/L (15-37); Albumin 3.4 g/dL (3.4-5.0); Alkaline Phosphatase 197 U/L (46-116); Anion Gap 11.6 mmol/L (3-11); BUN 18 mg/dL (7-18); Bilirubin, Total 0.5 mg/dL (0.2-1.0); CO2 23.4 mmol/L (21.0-32.0); CREATININE 1.18 mg/dL (0.70-1.30); Calcium 8.8 mg/dL (8.5-10.1); Chloride 104 mmol/L (98-107); Ferritin 309 ng/mL (8-388); Glucose 221 mg/dL (70-100); Potassium 3.9 mmol/L (3.5-5.1); Sodium 139 mmol/L (136-145); Total Protein 6.8 g/dL (6.4-8.2)
[2018-10-18 11:38] LABS: Absolute Neutrophil Count 8.19 k/cumm (1.2-6.7)
[2018-10-18 11:53] LABS: Diff Comment Diff Reviewed; Platelet Count 95 x1000/uL (130-400); RBC Morphology Normal
[2018-10-21 08:28] LABS: Vitamin D 25 Total 28.9 ng/ml (30-100)
[2018-10-21 12:52] LABS: IGF-1, LC/MS, S 91 ng/mL (32-200); Z-score -0.25 SD
[2018-10-21 14:07] LABS: G-6-PD, Qn, RBC 10.2 U/g Hb (8.8 - 13.4)
[2018-10-22 11:01] LABS: Methylmalonic Acid 0.49 nmol/mL (<=0.40)
[2018-10-22 15:16] LABS: Free Retinol (Vitamin A) 55.4 mcg/dL (32.5-78.0)
[2018-10-23 07:08] LABS: Ascorbic Acid (Vit C), Plasma 1.1 mg/dL (0.4 - 2.0)
== END 2018-10-24 23:59 | disposition home or self-care (01) ==
LOC: INF 00:51
PROVIDERS: Naturopath; PCP Physician Assistant Medical; Visit Provider Internal Medicine Hematology & Oncology
DX: E55.9 Vitamin D deficiency, unspecified (principal); C20 Malignant neoplasm of rectum; Z45.2 Encounter for adjustment and management of vascular access device
CPT/HCPCS: 36591; 74177; 80053; 80186; 82306; 84630; 96523; 71260; 82180; 82378; 82728; 82955; 83540; 83550; 83735; 84255; 84305; 84590; 85025; J3490; Q9967

== ENCOUNTER 2018-11-01 01:09 | Outpatient (RCR) | payer MEDICARE, MEDICAID, SELFPAY ==
[2018-11-01] MEDS: Normal Saline Flush 10 ML SYR IVP (11:02)
[2018-11-01 11:17] LABS: Abs Immature Grans 0.01 k/cumm (0.0-0.09); Absolute Basophil Count 0.08 k/cumm (0.0-0.2); Absolute Eosinophil Count 0.23 k/cumm (0.0-0.7); Absolute Lymphocyte Count 1.92 k/cumm (1.2-3.4); Absolute Monocyte Count 0.95 k/cumm (0.11-0.7); Absolute Neutrophil Count 2.62 k/cumm (1.2-6.7); Basophils % 1.4; HCT 39.1 % (40.0-50.0); HGB 13.2 g/dL (13.5-17.5); Immature Grans % 0.2; Mean Corp. HGB Concentration 33.8 g/dL (32.0-36.0); Mean Corpuscular Volume 97.8 fL (80-95); Mean Platelet Volume 11.4 fL (8.0-11.0); Monocytes % 16.4; Platelet Count 160 x1000/uL (130-400); RBC Distribution Width 14.8 % (11.8-14.1); White Blood Cell Count 5.81 k/cumm (4.4-10.8)
[2018-11-01 11:27] LABS: ALT 47 U/L (12-78); AST 31 U/L (15-37); Albumin 3.4 g/dL (3.4-5.0); Alkaline Phosphatase 77 U/L (46-116); Anion Gap 6.8 mmol/L (3-11); BUN 21 mg/dL (7-18); Bilirubin, Total 0.6 mg/dL (0.2-1.0); CO2 27.2 mmol/L (21.0-32.0); CREATININE 1.07 mg/dL (0.70-1.30); Calcium 9.2 mg/dL (8.5-10.1); Chloride 103 mmol/L (98-107); Glucose 110 mg/dL (70-100); Potassium 4.3 mmol/L (3.5-5.1); Sodium 137 mmol/L (136-145); Total Protein 7.5 g/dL (6.4-8.2)
[2018-11-04 11:21] LABS: CEA 3.6 ng/ml
[2018-11-06 10:51] LABS: Zinc, Plasma 53 ug/dl (70 - 120); Zinc, RBC 1099 ug/dl
== END 2018-11-21 23:59 | disposition home or self-care (01) ==
LOC: INF 01:09
PROVIDERS: PCP Physician Assistant Medical; Visit Provider Internal Medicine Hematology & Oncology
DX: C20 Malignant neoplasm of rectum (principal); C78.7 Secondary malignant neoplasm of liver and intrahepatic bile duct; Z45.2 Encounter for adjustment and management of vascular access device
CPT/HCPCS: 36591; 80053; 84630; 82378; 85025

== ENCOUNTER 2018-12-19 11:00 | Outpatient (RCR) | payer MEDICARE, MEDICAID, SELFPAY ==
[2018-11-22] MEDS: Normal Saline Flush 10 ML SYR IVP (09:44)
[2018-11-22 09:50] LABS: Abs Immature Grans 0.01 k/cumm (0.0-0.09); Absolute Basophil Count 0.03 k/cumm (0.0-0.2); Absolute Eosinophil Count 0.31 k/cumm (0.0-0.7); Absolute Lymphocyte Count 1.79 k/cumm (1.2-3.4); Absolute Monocyte Count 0.97 k/cumm (0.11-0.7); Basophils % 0.4; Eosinophils % 3.7; HCT 37.5 % (40.0-50.0); HGB 12.8 g/dL (13.5-17.5); Immature Grans % 0.1; Lymphocytes % 21.5; Mean Corp. HGB Concentration 34.1 g/dL (32.0-36.0); Mean Corpuscular Hemoglobin 33.7 pg (27.0-33.0); Mean Corpuscular Volume 98.7 fL (80-95); Mean Platelet Volume 10.2 fL (8.0-11.0); Monocytes % 11.7; Neutrophils % 62.6; Platelet Count 166 x1000/uL (130-400); RBC Distribution Width 14.8 % (11.8-14.1); White Blood Cell Count 8.31 k/cumm (4.4-10.8)
[2018-11-22 10:01] LABS: ALT 24 U/L (12-78); AST 19 U/L (15-37); Albumin 3.3 g/dL (3.4-5.0); Alkaline Phosphatase 77 U/L (46-116); Anion Gap 8.8 mmol/L (3-11); BUN 15 mg/dL (7-18); Bilirubin, Total 0.8 mg/dL (0.2-1.0); CO2 28.2 mmol/L (21.0-32.0); CREATININE 1.15 mg/dL (0.70-1.30); Chloride 103 mmol/L (98-107); Glucose 167 mg/dL (70-100); Potassium 4.2 mmol/L (3.5-5.1); Sodium 140 mmol/L (136-145); Total Protein 7.4 g/dL (6.4-8.2)
[2018-11-25 11:34] LABS: CEA 4.1 ng/ml
[2018-12-13] MEDS: Normal Saline Flush 10 ML SYR IVP (09:52)
[2018-12-13 10:02] LABS: Abs Immature Grans 0.01 k/cumm (0.0-0.09); Absolute Basophil Count 0.05 k/cumm (0.0-0.2); Absolute Eosinophil Count 0.42 k/cumm (0.0-0.7); Absolute Lymphocyte Count 1.45 k/cumm (1.2-3.4); Absolute Monocyte Count 0.82 k/cumm (0.11-0.7); Absolute Neutrophil Count 1.89 k/cumm (1.2-6.7); Basophils % 1.1; Eosinophils % 9.1; HGB 13.6 g/dL (13.5-17.5); Immature Grans % 0.2; Lymphocytes % 31.3; Mean Corp. HGB Concentration 34.9 g/dL (32.0-36.0); Mean Corpuscular Hemoglobin 34.3 pg (27.0-33.0); Mean Corpuscular Volume 98.2 fL (80-95); Mean Platelet Volume 10.7 fL (8.0-11.0); Monocytes % 17.7; Neutrophils % 40.6; Platelet Count 143 x1000/uL (130-400); RBC 3.97 m/cumm (4.50-6.00); RBC Distribution Width 15.5 % (11.8-14.1); White Blood Cell Count 4.64 k/cumm (4.4-10.8)
[2018-12-13 10:23] LABS: ALT 56 U/L (12-78); AST 36 U/L (15-37); Albumin 3.7 g/dL (3.4-5.0); Alkaline Phosphatase 82 U/L (46-116); Anion Gap 7.8 mmol/L (3-11); BUN 21 mg/dL (7-18); Bilirubin, Total 1.6 mg/dL (0.2-1.0); CO2 27.2 mmol/L (21.0-32.0); CREATININE 1.16 mg/dL (0.70-1.30); Calcium 9.3 mg/dL (8.5-10.1); Chloride 101 mmol/L (98-107); Glucose 192 mg/dL (70-100); Potassium 4.1 mmol/L (3.5-5.1); Sodium 136 mmol/L (136-145); Total Protein 7.4 g/dL (6.4-8.2)
[2018-12-16 09:59] LABS: CEA 6.3 ng/ml
[2018-12-19] MEDS: Normal Saline Flush 10 ML SYR IVP (11:01)
[2018-12-19 11:09] LABS: Abs Immature Grans 0.01 k/cumm (0.0-0.09); Absolute Basophil Count 0.12 k/cumm (0.0-0.2); Absolute Eosinophil Count 0.37 k/cumm (0.0-0.7); Absolute Lymphocyte Count 2.04 k/cumm (1.2-3.4); Absolute Monocyte Count 0.62 k/cumm (0.11-0.7); Absolute Neutrophil Count 1.89 k/cumm (1.2-6.7); Basophils % 2.4; Eosinophils % 7.3; HGB 13.3 g/dL (13.5-17.5); Immature Grans % 0.2; Lymphocytes % 40.4; Mean Corp. HGB Concentration 34.1 g/dL (32.0-36.0); Mean Corpuscular Hemoglobin 33.8 pg (27.0-33.0); Mean Corpuscular Volume 99.2 fL (80-95); Mean Platelet Volume 10.8 fL (8.0-11.0); Monocytes % 12.3; Neutrophils % 37.4; Platelet Count 142 x1000/uL (130-400); RBC 3.93 m/cumm (4.50-6.00); RBC Distribution Width 15.3 % (11.8-14.1); White Blood Cell Count 5.05 k/cumm (4.4-10.8)
[2018-12-19 11:31] LABS: ALT 72 U/L (12-78); AST 44 U/L (15-37); Albumin 3.6 g/dL (3.4-5.0); Alkaline Phosphatase 73 U/L (46-116); Anion Gap 8.7 mmol/L (3-11); BUN 24 mg/dL (7-18); CO2 29.3 mmol/L (21.0-32.0); CREATININE 1.11 mg/dL (0.70-1.30); Calcium 9.5 mg/dL (8.5-10.1); Chloride 101 mmol/L (98-107); Glucose 133 mg/dL (70-100); Potassium 4.1 mmol/L (3.5-5.1); Sodium 139 mmol/L (136-145); Total Protein 7.3 g/dL (6.4-8.2)
[2018-12-20 09:49] LABS: CEA 6.1 ng/ml
== END 2018-12-22 23:59 | disposition home or self-care (01) ==
LOC: INF 11:00
PROVIDERS: PCP Physician Assistant Medical; Visit Provider Internal Medicine Hematology & Oncology
DX: C20 Malignant neoplasm of rectum (principal); C78.7 Secondary malignant neoplasm of liver and intrahepatic bile duct; Z45.2 Encounter for adjustment and management of vascular access device
CPT/HCPCS: 36591; 80053; 82378; 85025

== ENCOUNTER 2019-01-01 11:53 | Outpatient (CLI) | payer MEDICARE, SELFPAY ==
[2019-01-01 12:47] LABS: ALT 52 U/L (12-78); AST 33 U/L (15-37); Albumin 3.7 g/dL (3.4-5.0); Alkaline Phosphatase 60 U/L (46-116); Bilirubin, Total 1.7 mg/dL (0.2-1.0); Total Protein 7.3 g/dL (6.4-8.2)
== END 2019-01-01 12:13 ==
PROVIDERS: Nurse Practitioner Adult Health; PCP Physician Assistant Medical; Visit Provider Naturopath
DX: C20 Malignant neoplasm of rectum (principal); C78.7 Secondary malignant neoplasm of liver and intrahepatic bile duct
CPT/HCPCS: 36415; 80076; 80186; 82306; 84075; 84080; 84630; 82180; 82955; 83540; 83550; 83735; 84255; 84305; 84590

== ENCOUNTER 2019-01-06 00:57 | Outpatient (CLI) | payer MEDICARE, SELFPAY ==
--- NOTE | 2019-01-06 10:00 | DI.CT_ITS ---
SYMPTOM/DIAGNOSIS: STAGE IV COLON CA, CHEMO, RESTAGING C18.9, C78.00 CHEST, ABDOMEN AND PELVIC CT: 01/06/19 CT examination of the chest, abdomen and pelvis was performed with a bolus infusion of 100 cc Omnipaque 350. The examination is compared with most recent previous CT of 10/14/18. Multiple pulmonary nodules noted on the previous examination are again seen on the current examination. Some new nodules are seen and there has been interval increase in size of some previously noted nodules, most notably in the left lower lobe posteriorly. Nodule increasing in size from 8 mm on the previous examination to 11 mm on the current examination and a new nodule of the right lung base barely visible, questionably on the previous examination and now measuring about 9 mm in diameter. No new mediastinal or hilar adenopathy seen. AP window node measures about 14 mm in diameter. Tracheobronchial tree appears intact. No evidence of pulmonary embolic disease or other major vascular abnormality. No gross supraclavicular or axillary adenopathy seen. Note is made of hepatic steatosis. Multiple hepatic lesions noted on the previous examination are again seen, lesion at the dome of the diaphragm measures 38 mm in diameter as compared to 31 mm on the previous examination, and inferiorly located right hepatic lobe lobe lesion masures 32 mm as opposed to 28 mm on previous exam. Spleen is unremarkable in appearance as is the pancreas. Gallbladder and bile ducts are CT normal. Adrenals appear normal. Kidneys appear normal. Abdominal aorta is of normal diameter and no major vascular abnormality seen. No evidence of bowel obstruction. No free intraperitoneal fluid noted. No destructive bony lesion identified on scanning of the chest, abdomen or pelvis. CONCLUSION: 1. Interval increase in number and size of intrapulmonary lesions consistent with metastatic disease. 2. Interval increase in size of hepatic lesions consistent with metastatic disease 3. No additional significant change
[2019-01-06] MEDS: Omnipaque 350 MG/ML 100 ML BTL IJ (10:08)
[2019-01-06] MEDS: Breeza Beverage 473 ML BTL PO ×2 (10:09→10:10)
[2019-01-06] MEDS: Omnipaque 350 MG/ML 50 ML BTL PO (10:10)
== END 2019-01-06 01:17 ==
PROVIDERS: PCP Physician Assistant Medical; Visit Provider Internal Medicine Hematology & Oncology
DX: C18.9 Malignant neoplasm of colon, unspecified (principal); C78.00 Secondary malignant neoplasm of unspecified lung; R91.8 Other nonspecific abnormal finding of lung field; K76.0 Fatty (change of) liver, not elsewhere classified; C78.7 Secondary malignant neoplasm of liver and intrahepatic bile duct
CPT/HCPCS: 74177; 71260; J3490; Q9967

== ENCOUNTER 2019-01-17 02:38 | Outpatient (RCR) | payer MEDICARE, MEDICAID, SELFPAY ==
[2019-01-06] MEDS: Heparin 500 UNITS/5 ML SYRINGE IV (08:15)
[2019-01-06] MEDS: Normal Saline Flush 10 ML SYR IVP (08:15)
[2019-01-10] MEDS: Normal Saline Flush 10 ML SYR IVP (09:05)
[2019-01-10 09:27] LABS: Abs Immature Grans 0.01 k/cumm (0.0-0.09); Absolute Basophil Count 0.06 k/cumm (0.0-0.2); Absolute Eosinophil Count 0.35 k/cumm (0.0-0.7); Absolute Lymphocyte Count 1.54 k/cumm (1.2-3.4); Absolute Monocyte Count 0.61 k/cumm (0.11-0.7); Absolute Neutrophil Count 2.18 k/cumm (1.2-6.7); Basophils % 1.3; Eosinophils % 7.4; HCT 39.4 % (40.0-50.0); HGB 13.7 g/dL (13.5-17.5); Immature Grans % 0.2; Lymphocytes % 32.4; Mean Corp. HGB Concentration 34.8 g/dL (32.0-36.0); Mean Corpuscular Hemoglobin 34.6 pg (27.0-33.0); Mean Corpuscular Volume 99.5 fL (80-95); Mean Platelet Volume 10.8 fL (8.0-11.0); Monocytes % 12.8; Neutrophils % 45.9; Platelet Count 164 x1000/uL (130-400); RBC 3.96 m/cumm (4.50-6.00); White Blood Cell Count 4.75 k/cumm (4.4-10.8)
[2019-01-10 09:35] LABS: Bilirubin Negative (Negative); Blood Negative (Negative); Clarity Clear; Glucose Negative (Negative); Ketones Negative (Negative); Leukocyte Esterase Negative (Negative); Nitrite Negative (Negative); Urobilinogen 0.2 EU/dL (Up TO 0.2); pH 5.5 (5-8)
[2019-01-10 09:41] LABS: ALT 47 U/L (12-78); AST 34 U/L (15-37); Albumin 3.7 g/dL (3.4-5.0); Alkaline Phosphatase 69 U/L (46-116); Anion Gap 10.3 mmol/L (3-11); BUN 16 mg/dL (7-18); Bilirubin, Total 1.1 mg/dL (0.2-1.0); CO2 25.7 mmol/L (21.0-32.0); CREATININE 1.12 mg/dL (0.70-1.30); Chloride 103 mmol/L (98-107); Glucose 162 mg/dL (70-100); Potassium 4.2 mmol/L (3.5-5.1); Sodium 139 mmol/L (136-145); Total Protein 7.4 g/dL (6.4-8.2)
[2019-01-10 09:45] LABS: Bacteria Negative HPF (Negative); Epithelial Cells Rare HPF (Negative); RBC 0-2 (0-2); WBC 0-2 HPF (0-5)
[2019-01-10 09:46] LABS: C & S Indicated? No; Casts 0-2 Fine Granular LPF (Negative); Crystals Negative HPF (Negative); Mucus Trace (Negative)
[2019-01-13 10:08] LABS: CEA 4.6 ng/ml
[2019-01-17] MEDS: Normal Saline Flush 10 ML SYR IVP (09:58)
[2019-01-17 10:17] LABS: Abs Immature Grans 0.01 k/cumm (0.0-0.09); Absolute Basophil Count 0.07 k/cumm (0.0-0.2); Absolute Eosinophil Count 0.26 k/cumm (0.0-0.7); Absolute Lymphocyte Count 1.59 k/cumm (1.2-3.4); Absolute Monocyte Count 0.68 k/cumm (0.11-0.7); Absolute Neutrophil Count 2.42 k/cumm (1.2-6.7); Basophils % 1.4; Eosinophils % 5.2; HCT 40.3 % (40.0-50.0); HGB 13.9 g/dL (13.5-17.5); Immature Grans % 0.2; Lymphocytes % 31.6; Mean Corp. HGB Concentration 34.5 g/dL (32.0-36.0); Mean Corpuscular Hemoglobin 34.5 pg (27.0-33.0); Mean Platelet Volume 11.4 fL (8.0-11.0); Monocytes % 13.5; Neutrophils % 48.1; Platelet Count 135 x1000/uL (130-400); RBC 4.03 m/cumm (4.50-6.00); RBC Distribution Width 15.4 % (11.8-14.1); White Blood Cell Count 5.03 k/cumm (4.4-10.8)
[2019-01-17 10:18] LABS: Bilirubin Negative (Negative); Blood Negative (Negative); Clarity Clear; Glucose Negative (Negative); Ketones Negative (Negative); Leukocyte Esterase Negative (Negative); Nitrite Negative (Negative); Specific Gravity 1.015 (1.005-1.025); Urobilinogen 0.2 EU/dL (Up TO 0.2)
[2019-01-17 10:54] LABS: ALT 59 U/L (12-78); AST 36 U/L (15-37); Albumin 3.7 g/dL (3.4-5.0); Alkaline Phosphatase 69 U/L (46-116); Anion Gap 10.7 mmol/L (3-11); BUN 17 mg/dL (7-18); Bilirubin, Total 1.8 mg/dL (0.2-1.0); CO2 26.3 mmol/L (21.0-32.0); CREATININE 1.08 mg/dL (0.70-1.30); Calcium 9.1 mg/dL (8.5-10.1); Chloride 101 mmol/L (98-107); Glucose 122 mg/dL (70-100); Sodium 138 mmol/L (136-145); Total Protein 7.5 g/dL (6.4-8.2)
[2019-01-20 09:53] LABS: CEA 4.6 ng/ml
== END 2019-01-21 23:59 | disposition home or self-care (01) ==
LOC: INF 02:38
PROVIDERS: PCP Physician Assistant Medical; Visit Provider Internal Medicine Hematology & Oncology
DX: C20 Malignant neoplasm of rectum (principal); C78.7 Secondary malignant neoplasm of liver and intrahepatic bile duct; Z45.2 Encounter for adjustment and management of vascular access device
CPT/HCPCS: 36591; 74177; 80053; 96523; 71260; 81003; 81015; 82378; 85025; J3490; Q9967

== ENCOUNTER 2019-02-14 00:53 | Outpatient (RCR) | payer MEDICARE, MEDICAID, SELFPAY ==
[2019-01-31 10:04] LABS: Abs Immature Grans 0.24 k/cumm (0.0-0.09); HCT 42.5 % (40.0-50.0); HGB 14.7 g/dL (13.5-17.5); Mean Corp. HGB Concentration 34.6 g/dL (32.0-36.0); Mean Corpuscular Hemoglobin 34.2 pg (27.0-33.0); Mean Corpuscular Volume 98.8 fL (80-95); Mean Platelet Volume 11.1 fL (8.0-11.0); Platelet Count 134 x1000/uL (130-400); White Blood Cell Count 9.95 k/cumm (4.4-10.8)
[2019-01-31 10:21] LABS: ALT 55 U/L (12-78); AST 32 U/L (15-37); Absolute Lymphocyte Count 1.99 k/cumm (1.2-3.4); Absolute Neutrophil Count 6.47 k/cumm (1.2-6.7); Albumin 3.5 g/dL (3.4-5.0); Alkaline Phosphatase 110 U/L (46-116); Anion Gap 8.2 mmol/L (3-11); BUN 16 mg/dL (7-18); Bilirubin, Total 0.6 mg/dL (0.2-1.0); CO2 27.8 mmol/L (21.0-32.0); CREATININE 1.15 mg/dL (0.70-1.30); Calcium 9.4 mg/dL (8.5-10.1); Chloride 102 mmol/L (98-107); Glucose 135 mg/dL (70-100); Sodium 138 mmol/L (136-145); Total Protein 7.4 g/dL (6.4-8.2)
[2019-01-31 10:22] LABS: Diff Comment Manual Differential; RBC Morphology Normal
[2019-01-31] MEDS: Normal Saline Flush 10 ML SYR IVP (10:43)
[2019-02-03 11:14] LABS: CEA 4.2 ng/ml
[2019-02-14] MEDS: Normal Saline Flush 10 ML SYR IVP (10:35)
[2019-02-14 11:02] LABS: Absolute Eosinophil Count 0.43 k/cumm (0.0-0.7); HCT 40.9 % (40.0-50.0); HGB 14.4 g/dL (13.5-17.5); Mean Corp. HGB Concentration 35.2 g/dL (32.0-36.0); Mean Corpuscular Hemoglobin 34.8 pg (27.0-33.0); Mean Corpuscular Volume 98.8 fL (80-95); Mean Platelet Volume 11.5 fL (8.0-11.0); Platelet Count 125 x1000/uL (130-400); RBC 4.14 m/cumm (4.50-6.00); White Blood Cell Count 14.21 k/cumm (4.4-10.8)
[2019-02-14 11:23] LABS: Absolute Basophil Count 0.28 k/cumm (0.0-0.2); Absolute Lymphocyte Count 2.84 k/cumm (1.2-3.4); Absolute Monocyte Count 0.14 k/cumm (0.11-0.7); Absolute Neutrophil Count 10.23 k/cumm (1.2-6.7); Diff Comment Manual Differential; RBC Morphology Normal
[2019-02-14 11:41] LABS: ALT 62 U/L (12-78); AST 43 U/L (15-37); Albumin 3.6 g/dL (3.4-5.0); Alkaline Phosphatase 158 U/L (46-116); Anion Gap 12.1 mmol/L (3-11); BUN 20 mg/dL (7-18); Bilirubin, Total 0.7 mg/dL (0.2-1.0); CO2 24.9 mmol/L (21.0-32.0); Calcium 9.4 mg/dL (8.5-10.1); Chloride 102 mmol/L (98-107); Glucose 120 mg/dL (70-100); Potassium 4.2 mmol/L (3.5-5.1); Sodium 139 mmol/L (136-145); Total Protein 7.6 g/dL (6.4-8.2)
[2019-02-17 10:01] LABS: CEA 4.6 ng/ml
== END 2019-02-21 23:59 | disposition home or self-care (01) ==
LOC: INF 00:53
PROVIDERS: PCP Physician Assistant Medical; Visit Provider Internal Medicine Hematology & Oncology
DX: C20 Malignant neoplasm of rectum (principal); C78.7 Secondary malignant neoplasm of liver and intrahepatic bile duct; Z45.2 Encounter for adjustment and management of vascular access device
CPT/HCPCS: 36591; 80053; 82378; 85025

== ENCOUNTER 2019-03-11 00:25 | Outpatient (CLI) | payer MEDICARE, MEDICAID, SELFPAY ==
--- NOTE | 2019-03-11 09:32 | DI.CT_ITS ---
SYMPTOM/DIAGNOSIS: RECTAL CA, C20. EVALUATE RESPONSE TO THERAPY CHEST, ABDOMEN AND PELVIC CT: Comparison is made with 10/14/18. Images were performed from the clavicles through the ischial tuberosities after IV and oral contrast. CHEST: There is a stable AP window lymph node. No additional sites of adenopathy are seen. The heart size is normal. No pleural or pericardial effusions are seen. There has been interval increase in the previously noted left lower lobe nodule to 11 by 9 mm. A smaller nodule seen slightly superior and laterally appears unchanged in size at 6 mm. There is also question of increase in size of a nodule seen in the right lower lobe measuring 5 mm. There are other scattered tiny nodules measuring under 3 mm. in both upper lobes. These appear stable. There are two stable 5 mm. nodules seen in left upper and right upper lobes. ABDOMEN AND PELVIC: There has been interval increase in size of the metastatic lesion at the dome of the liver measuring 2.9 by 3.6 cm. A tiny lesion is seen anteriorly in the left lobe of the liver which appears stable. There has also been interval increase in size of the metastatic lesions seen in the inferior right lobe measuring 3.5 by 2.7 cm. There is underlying fatty infiltration of the liver. No new liver lesions or biliary dilatation is seen. The spleen, pancreas, kidneys and adrenals are unremarkable. There is stable thickening of the wall of the rectum and a stable right sided lymph nodes in the perirectal fat on the right. There is moderate to increased quantity of stool. No bowel obstruction or ascites is present. There is again noted to be loss of the fat plane between the rectum and prostate. There is mild posterior inferior bladder wall thickening which appears unchanged. No aggressive bony lesions are seen. IMPRESSION: Interval increase in size of hepatic metastases. Stable wall thickening of the rectum.
[2019-03-11] MEDS: Omnipaque 350 MG/ML 100 ML BTL IJ (09:33)
[2019-03-11] MEDS: Omnipaque 350 MG/ML 50 ML BTL PO (09:34)
[2019-03-11] MEDS: Normal Saline Flush 10 ML SYR IVP (09:35)
== END 2019-03-11 00:45 ==
PROVIDERS: PCP Physician Assistant Medical; Visit Provider Registered Nurse Oncology
DX: C20 Malignant neoplasm of rectum (principal); Z12.89 Encounter for screening for malignant neoplasm of other sites; C78.7 Secondary malignant neoplasm of liver and intrahepatic bile duct; R91.8 Other nonspecific abnormal finding of lung field; K76.0 Fatty (change of) liver, not elsewhere classified
CPT/HCPCS: 36591; 74177; 71260; 82565; J3490; Q9967

== ENCOUNTER 2019-03-14 01:40 | Outpatient (RCR) | payer MEDICARE, MEDICAID, SELFPAY ==
[2019-02-28] MEDS: Normal Saline Flush 10 ML SYR IVP (10:14)
[2019-02-28 10:36] LABS: Abs Immature Grans 0.11 k/cumm (0.0-0.09); Absolute Basophil Count 0.11 k/cumm (0.0-0.2); Absolute Eosinophil Count 0.33 k/cumm (0.0-0.7); Absolute Lymphocyte Count 2.07 k/cumm (1.2-3.4); Absolute Monocyte Count 1.19 k/cumm (0.11-0.7); Absolute Neutrophil Count 4.84 k/cumm (1.2-6.7); Basophils % 1.3; Eosinophils % 3.8; HCT 38.4 % (40.0-50.0); HGB 13.2 g/dL (13.5-17.5); Immature Grans % 1.3; Lymphocytes % 23.9; Mean Corp. HGB Concentration 34.4 g/dL (32.0-36.0); Mean Corpuscular Hemoglobin 33.8 pg (27.0-33.0); Mean Corpuscular Volume 98.5 fL (80-95); Mean Platelet Volume 11.1 fL (8.0-11.0); Monocytes % 13.8; Neutrophils % 55.9; Platelet Count 118 x1000/uL (130-400); RBC Distribution Width 15.4 % (11.8-14.1); White Blood Cell Count 8.65 k/cumm (4.4-10.8)
[2019-02-28 11:11] LABS: ALT 54 U/L (12-78); AST 35 U/L (15-37); Albumin 3.3 g/dL (3.4-5.0); Alkaline Phosphatase 149 U/L (46-116); Anion Gap 10.4 mmol/L (3-11); BUN 20 mg/dL (7-18); Bilirubin, Total 0.7 mg/dL (0.2-1.0); CO2 24.6 mmol/L (21.0-32.0); CREATININE 1.26 mg/dL (0.70-1.30); Calcium 9.2 mg/dL (8.5-10.1); Chloride 104 mmol/L (98-107); Estimated GFR 55.94 (mL/min/1.73m2); Glucose 139 mg/dL (70-100); Potassium 4.1 mmol/L (3.5-5.1); Sodium 139 mmol/L (136-145); Total Protein 7.1 g/dL (6.4-8.2)
[2019-03-03 09:38] LABS: CEA 5.5 ng/ml
[2019-03-11] MEDS: Normal Saline Flush 10 ML SYR IVP (07:50)
[2019-03-11] MEDS: Heparin 500 UNITS/5 ML SYRINGE IV (07:50)
[2019-03-11 08:06] LABS: CREATININE 1.05 mg/dL (0.70-1.30)
[2019-03-14] MEDS: Normal Saline Flush 10 ML SYR IVP (09:19)
[2019-03-14] MEDS: Heparin 500 UNITS/5 ML SYRINGE IV (09:20)
[2019-03-14 09:48] LABS: Abs Immature Grans 0.02 k/cumm (0.0-0.09); Absolute Basophil Count 0.05 k/cumm (0.0-0.2); Absolute Lymphocyte Count 1.21 k/cumm (1.2-3.4); Absolute Monocyte Count 0.84 k/cumm (0.11-0.7); Absolute Neutrophil Count 1.97 k/cumm (1.2-6.7); Basophils % 1.2; Eosinophils % 2.4; HGB 12.4 g/dL (13.5-17.5); Immature Grans % 0.5; Lymphocytes % 28.9; Mean Corp. HGB Concentration 34.4 g/dL (32.0-36.0); Mean Corpuscular Hemoglobin 33.7 pg (27.0-33.0); Mean Corpuscular Volume 97.8 fL (80-95); Mean Platelet Volume 11.3 fL (8.0-11.0); RBC 3.68 m/cumm (4.50-6.00); RBC Distribution Width 15.8 % (11.8-14.1); White Blood Cell Count 4.19 k/cumm (4.4-10.8)
[2019-03-14 09:53] LABS: ALT 63 U/L (12-78); AST 36 U/L (15-37); Albumin 3.5 g/dL (3.4-5.0); Alkaline Phosphatase 128 U/L (46-116); Anion Gap 11.7 mmol/L (3-11); BUN 16 mg/dL (7-18); Bilirubin, Total 1.1 mg/dL (0.2-1.0); CO2 23.3 mmol/L (21.0-32.0); CREATININE 1.11 mg/dL (0.70-1.30); Calcium 8.8 mg/dL (8.5-10.1); Chloride 106 mmol/L (98-107); Glucose 133 mg/dL (70-100); Potassium 3.9 mmol/L (3.5-5.1); Sodium 141 mmol/L (136-145)
[2019-03-14 10:03] LABS: Diff Comment PLT Morph Reviewed; Platelet Count 88 x1000/uL (130-400)
[2019-03-14 10:04] LABS: RBC Morphology Normal
[2019-03-17 10:52] LABS: CEA 4.2 ng/ml
== END 2019-03-23 23:59 | disposition home or self-care (01) ==
LOC: INF 01:40
PROVIDERS: PCP Physician Assistant Medical; Visit Provider Internal Medicine Hematology & Oncology
DX: C20 Malignant neoplasm of rectum (principal); C78.7 Secondary malignant neoplasm of liver and intrahepatic bile duct; Z45.2 Encounter for adjustment and management of vascular access device
CPT/HCPCS: 36591; 80053; 82378; 82565; 85025

== ENCOUNTER 2019-04-18 02:23 | Outpatient (RCR) | payer MEDICARE, MEDICAID, SELFPAY ==
[2019-03-28] MEDS: Normal Saline Flush 10 ML SYR IVP (09:25)
[2019-03-28 09:53] LABS: Absolute Monocyte Count 0.81 k/cumm (0.11-0.7); HGB 13.3 g/dL (13.5-17.5); Mean Corp. HGB Concentration 34.1 g/dL (32.0-36.0); Mean Corpuscular Hemoglobin 34.6 pg (27.0-33.0); Mean Corpuscular Volume 101.6 fL (80-95); Mean Platelet Volume 11.2 fL (8.0-11.0); Platelet Count 151 x1000/uL (130-400); RBC 3.84 m/cumm (4.50-6.00); RBC Distribution Width 16.2 % (11.8-14.1); White Blood Cell Count 5.42 k/cumm (4.4-10.8)
[2019-03-28 10:09] LABS: ALT 47 U/L (12-78); AST 25 U/L (15-37); Albumin 3.5 g/dL (3.4-5.0); Alkaline Phosphatase 81 U/L (46-116); Anion Gap 9.8 mmol/L (3-11); BUN 27 mg/dL (7-18); CO2 23.2 mmol/L (21.0-32.0); CREATININE 1.16 mg/dL (0.70-1.30); Calcium 9.2 mg/dL (8.5-10.1); Chloride 106 mmol/L (98-107); Glucose 159 mg/dL (70-100); Potassium 4.3 mmol/L (3.5-5.1); Sodium 139 mmol/L (136-145); Total Protein 7.3 g/dL (6.4-8.2)
[2019-03-28 10:38] LABS: Absolute Eosinophil Count 0.11 k/cumm (0.0-0.7); Absolute Lymphocyte Count 1.36 k/cumm (1.2-3.4); Absolute Neutrophil Count 3.14 k/cumm (1.2-6.7); Atypical Lymphocytes % 2; Nucleated RBC 0 /100WBC; Other Cells 0; Promyelocytes % 0 %
[2019-03-28 10:39] LABS: Anisocytosis 1+; Diff Comment Manual Differential; Hypochromasia 1+
[2019-03-28 10:40] LABS: Poikilocytes 1+
[2019-03-31 11:17] LABS: CEA 4.4 ng/ml
[2019-04-18 09:38] LABS: Abs Immature Grans 0.02 k/cumm (0.0-0.09); Absolute Basophil Count 0.09 k/cumm (0.0-0.2); Absolute Lymphocyte Count 1.61 k/cumm (1.2-3.4); Absolute Monocyte Count 0.73 k/cumm (0.11-0.7); Absolute Neutrophil Count 2.66 k/cumm (1.2-6.7); Basophils % 1.7; Eosinophils % 3.8; HCT 39.5 % (40.0-50.0); HGB 13.5 g/dL (13.5-17.5); Immature Grans % 0.4; Lymphocytes % 30.3; Mean Corp. HGB Concentration 34.2 g/dL (32.0-36.0); Mean Corpuscular Hemoglobin 34.4 pg (27.0-33.0); Mean Corpuscular Volume 100.8 fL (80-95); Mean Platelet Volume 11.2 fL (8.0-11.0); Monocytes % 13.7; Neutrophils % 50.1; Platelet Count 165 x1000/uL (130-400); RBC 3.92 m/cumm (4.50-6.00); White Blood Cell Count 5.31 k/cumm (4.4-10.8)
[2019-04-18 09:58] LABS: ALT 47 U/L (12-78); AST 31 U/L (15-37); Albumin 3.5 g/dL (3.4-5.0); Alkaline Phosphatase 72 U/L (46-116); Anion Gap 9.9 mmol/L (3-11); BUN 20 mg/dL (7-18); Bilirubin, Total 0.9 mg/dL (0.2-1.0); CO2 26.1 mmol/L (21.0-32.0); CREATININE 0.88 mg/dL (0.70-1.30); Calcium 9.6 mg/dL (8.5-10.1); Chloride 105 mmol/L (98-107); Glucose 130 mg/dL (70-100); Potassium 4.4 mmol/L (3.5-5.1); Sodium 141 mmol/L (136-145); Total Protein 7.4 g/dL (6.4-8.2)
[2019-04-18] MEDS: Normal Saline Flush 10 ML SYR IVP (10:13)
[2019-04-21 13:59] LABS: CEA 3.6 ng/ml
== END 2019-04-23 23:59 | disposition home or self-care (01) ==
LOC: INF 02:23
PROVIDERS: PCP Physician Assistant Medical; Visit Provider Internal Medicine Hematology & Oncology
DX: C20 Malignant neoplasm of rectum (principal); Z45.2 Encounter for adjustment and management of vascular access device
CPT/HCPCS: 36591; 80053; 82378; 85025

== ENCOUNTER 2019-05-01 01:18 | Outpatient (CLI) | payer MEDICARE, MEDICAID, SELFPAY ==
--- NOTE | 2019-05-01 10:55 | DI.CT_ITS ---
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 The examination is compared with most recent previous CT of 03/11/19. Multiple pulmonary nodules were identified on the previous examination and these appear to be fairly stable in size, the largest on the left measuring about 11 x 9 mm in diameter and the largest on the right measuring about 6 mm in diameter. There is increase in size of a right lower lobe nodule to about 10 mm maximal diameter as compared to about 7 mm maximal diameter on the previous examination. Note is also made of two new cavitating nodules of the left lower lobe laterally with surrounding ground glass opacities. These measure 15 mm and 10 mm in diameter respectively. These were not present on the previous examination. These could represent cavitating metastatic nodules, alternatively the possibility of infectious process would have to be raised. Small mediastinal lymph nodes including an 11 mm AP window node appears stable. No evidence of pulmonary embolic disease. No new axillary or supraclavicular adenopathy. Previously noted hepatic metastases are again seen. The largest in the superior aspect of right hepatic lobe measures 45 x 37 mm in diameter as compared to 36 x 29 mm in diameter on the previous examination. Another lesion in the either portion of the right hepatic lobe measures 37 x 33 mm in diameter as compared to 35 x 27 mm in diameter on the previous study. There is a probable new 7 mm in diameter nodule of the right hepatic lobe. A nodule of the left hepatic lobe is slightly larger than on the previous examination measuring about 8 mm as compared to about 6 mm on the previous study. No splenic abnormality seen. The pancreas appears intact. No evidence of ascites. No focal bowel lesion identified. Rectal wall thickening again noted. Nonspecific mild prominence of internal iliac nodes again noted without bulky adenopathy. No convincing adenopathy elsewhere in the abdomen. No evidence of bowel obstruction. No significant abdominal wall hernia. No significant lytic or blastic bony lesion identified. Unremarkable appearance of adrenals, kidneys and ureters. The abdominal aorta is of normal diameter and no major vasculature abnormality is seen. CONCLUSION: 1. Predominantly stable multiple pulmonary metastatic lesions with new cavitating lesions in left lower lobe as described above with surrounding ground glass opacity, question cavitating metastatic lesions vs infectious process. 2. Interval increase in lesions of the liver, small new hepatic lesions are seen in right and left lobes as well. 3. No additional significant new findings.
[2019-05-01] MEDS: Omnipaque 350 MG/ML 100 ML BTL IJ (11:05)
[2019-05-01] MEDS: Omnipaque 350 MG/ML 50 ML BTL PO (11:06)
== END 2019-05-01 01:38 ==
PROVIDERS: PCP Physician Assistant Medical; Visit Provider Registered Nurse Oncology
DX: C20 Malignant neoplasm of rectum (principal); C78.7 Secondary malignant neoplasm of liver and intrahepatic bile duct; C78.02 Secondary malignant neoplasm of left lung; R59.0 Localized enlarged lymph nodes; C78.01 Secondary malignant neoplasm of right lung
CPT/HCPCS: 36591; 74177; 80053; 71260; 82378; 85025; J3490; Q9967

== ENCOUNTER 2019-05-12 11:00 | Outpatient (RCR) | payer MEDICARE, MEDICAID, SELFPAY ==
[2019-05-01] MEDS: Normal Saline Flush 10 ML SYR IVP (09:15)
[2019-05-01] MEDS: Heparin 500 UNITS/5 ML SYRINGE IV (09:30)
[2019-05-01 09:31] LABS: Abs Immature Grans 0.02 k/cumm (0.0-0.09); Absolute Basophil Count 0.07 k/cumm (0.0-0.2); Absolute Eosinophil Count 0.17 k/cumm (0.0-0.7); Absolute Lymphocyte Count 1.74 k/cumm (1.2-3.4); Absolute Monocyte Count 0.78 k/cumm (0.11-0.7); Absolute Neutrophil Count 3.32 k/cumm (1.2-6.7); Basophils % 1.1; Eosinophils % 2.8; HCT 38.3 % (40.0-50.0); HGB 13.3 g/dL (13.5-17.5); Immature Grans % 0.3; Lymphocytes % 28.5; Mean Corp. HGB Concentration 34.7 g/dL (32.0-36.0); Mean Corpuscular Hemoglobin 34.3 pg (27.0-33.0); Mean Corpuscular Volume 98.7 fL (80-95); Mean Platelet Volume 10.8 fL (8.0-11.0); Monocytes % 12.8; Neutrophils % 54.5; Platelet Count 111 x1000/uL (130-400); RBC 3.88 m/cumm (4.50-6.00); RBC Distribution Width 14.4 % (11.8-14.1)
[2019-05-01 09:59] LABS: ALT 45 U/L (12-78); AST 25 U/L (15-37); Albumin 3.5 g/dL (3.4-5.0); Alkaline Phosphatase 104 U/L (46-116); Anion Gap 9.8 mmol/L (3-11); BUN 18 mg/dL (7-18); Bilirubin, Total 0.5 mg/dL (0.2-1.0); CO2 24.2 mmol/L (21.0-32.0); CREATININE 1.09 mg/dL (0.70-1.30); Calcium 8.9 mg/dL (8.5-10.1); Chloride 106 mmol/L (98-107); Glucose 118 mg/dL (70-100); Potassium 4.4 mmol/L (3.5-5.1); Sodium 140 mmol/L (136-145); Total Protein 7.4 g/dL (6.4-8.2)
[2019-05-02 09:20] LABS: CEA 4.7 ng/ml
[2019-05-09] MEDS: Heparin 500 UNITS/5 ML SYRINGE IV (08:35)
[2019-05-09] MEDS: Normal Saline Flush 10 ML SYR IVP (08:35)
[2019-05-09 08:56] LABS: Abs Immature Grans 0.03 k/cumm (0.0-0.09); Absolute Eosinophil Count 0.23 k/cumm (0.0-0.7); Absolute Monocyte Count 0.79 k/cumm (0.11-0.7); Absolute Neutrophil Count 3.08 k/cumm (1.2-6.7); Basophils % 1.7; Eosinophils % 3.9; HCT 40.7 % (40.0-50.0); HGB 13.7 g/dL (13.5-17.5); Immature Grans % 0.5; Lymphocytes % 28.7; Mean Corp. HGB Concentration 33.7 g/dL (32.0-36.0); Mean Corpuscular Hemoglobin 34.3 pg (27.0-33.0); Mean Platelet Volume 10.8 fL (8.0-11.0); Monocytes % 13.3; Neutrophils % 51.9; Platelet Count 172 x1000/uL (130-400); RBC 3.99 m/cumm (4.50-6.00); RBC Distribution Width 14.5 % (11.8-14.1); White Blood Cell Count 5.93 k/cumm (4.4-10.8)
[2019-05-09 09:05] LABS: ALT 41 U/L (12-78); AST 26 U/L (15-37); Albumin 3.6 g/dL (3.4-5.0); Alkaline Phosphatase 95 U/L (46-116); Anion Gap 8.5 mmol/L (3-11); BUN 19 mg/dL (7-18); Bilirubin, Total 0.5 mg/dL (0.2-1.0); CO2 28.5 mmol/L (21.0-32.0); CREATININE 1.14 mg/dL (0.70-1.30); Chloride 104 mmol/L (98-107); Glucose 154 mg/dL (70-100); Potassium 4.4 mmol/L (3.5-5.1); Sodium 141 mmol/L (136-145); Total Protein 7.4 g/dL (6.4-8.2)
[2019-05-12 09:18] LABS: CEA 6.8 ng/ml
[2019-05-12] MEDS: Heparin 500 UNITS/5 ML SYRINGE IV (13:00)
[2019-05-12] MEDS: Normal Saline Flush 10 ML SYR IVP (13:00)
[2019-05-15 08:38] LABS: Misc Referral (MAYO) See Comments
== END 2019-05-24 23:59 | disposition home or self-care (01) ==
LOC: INF 11:00
PROVIDERS: PCP Physician Assistant Medical; Visit Provider Internal Medicine Hematology & Oncology
DX: C20 Malignant neoplasm of rectum (principal); C78.7 Secondary malignant neoplasm of liver and intrahepatic bile duct; Z45.2 Encounter for adjustment and management of vascular access device
CPT/HCPCS: 36591; 80053; 87305; 82378; 85025

== ENCOUNTER 2019-06-19 01:00 | Outpatient (CLI) | payer MEDICARE, MEDICAID, SELFPAY ==
[2019-06-19] MEDS: Omnipaque 350 MG/ML 50 ML BTL PO (08:39)
[2019-06-19] MEDS: Omnipaque 350 MG/ML 100 ML BTL IJ (10:01)
--- NOTE | 2019-06-19 10:05 | DI.CT_ITS ---
EXAM: CT CHEST/ABD/PEL W CLINICAL HISTORY: RECTAL CA METASTASIZED TO LUNG, C20, C78.00. TECHNIQUE: CT carried out with an intravenous administration of 100 cc of Omnipaque 350. COMPARISON: CT CHEST/ABD/PEL W from 05/01/2019 FINDINGS: A CT examination of the chest, abdomen and pelvis was carried out with an intravenous administration of 100 cc of Omnipaque 350. Chest: When compared with the previous study, again demonstrated are multiple pulmonary nodules, all of which appear to be increased in size. Again noted are scattered very small nodules measuring less than 2-3 mm in both upper lobes. Findings are unchanged. There are again noted 5-6 mm nodules in t he left upper lobe with no definite interval change. Also there is a slight interval increase in the size of a right lower lobe nodule which today measures 6 mm versus 5 mm on the previous study. The previously noted cavitated nodules in the left lower lobe have resolved. There is no evidence of med iastinal lymphadenopathy with no apparent interval change. There is nothing to suggest pulmonary emb olic disease. Abdomen and pelvic CT: Compared with the prior examination, there has been an interval increase in th e size of a metastasis in the superior portion of the right hepatic lobe which previously measured ap proximately 40 x 34 mm today measures 51 x 42 mm. A lesion in the inferior portion of the right hepa tic lobe is not significantly changed in size. Small radiolucencies in the right and left hepatic lo bes are unchanged. Note is made of fatty infiltration of the liver. No new hepatic lesions are appar ent. Pancreas and spleen, kidneys and adrenals appear normal. There is no evidence of bowel obstruc tion. Again noted is thickening of the rectal wall, unchanged. Enlarged lymph nodes in the perirect al fat appear unchanged. There has been no change with note again made of loss of the fat plane betw een the rectum and prostate. The bladder wall appears unremarkable. There is no evidence of adenopa thy in the abdomen. There is no evidence of an aortic aneurysm. There is no evidence of intraperiton eal free fluid. IMPRESSION: There are again noted multiple metastatic lesions in the lungs with resolution of the cavitated lesi ons in the left lower lobe. There has been some increase in size of several of the pulmonary lesions. Again noted are metastatic lesions in the liver which have increased in size. Small radiolucencies in the right and left hepatic lobe appear unchanged. No definite new hepatic lesions are seen.
== END 2019-06-19 01:20 ==
PROVIDERS: PCP Physician Assistant Medical; Visit Provider Registered Nurse Oncology
DX: C20 Malignant neoplasm of rectum (principal); C78.00 Secondary malignant neoplasm of unspecified lung; C78.7 Secondary malignant neoplasm of liver and intrahepatic bile duct
CPT/HCPCS: 74177; 96523; 71260; J3490; Q9967

== ENCOUNTER 2019-06-19 02:10 | Outpatient (RCR) | payer MEDICARE, MEDICAID, SELFPAY ==
[2019-05-30] MEDS: Normal Saline Flush 10 ML SYR IVP (14:13)
[2019-05-30] MEDS: Heparin 500 UNITS/5 ML SYRINGE IV (14:14)
[2019-05-30 14:45] LABS: Abs Immature Grans 0.01 k/cumm (0.0-0.09); Absolute Basophil Count 0.07 k/cumm (0.0-0.2); Absolute Eosinophil Count 0.27 k/cumm (0.0-0.7); Absolute Lymphocyte Count 1.79 k/cumm (1.2-3.4); Absolute Monocyte Count 0.46 k/cumm (0.11-0.7); Absolute Neutrophil Count 2.63 k/cumm (1.2-6.7); Basophils % 1.3; Eosinophils % 5.2; HCT 38.1 % (40.0-50.0); HGB 12.9 g/dL (13.5-17.5); Immature Grans % 0.2; Lymphocytes % 34.2; Mean Corp. HGB Concentration 33.9 g/dL (32.0-36.0); Mean Corpuscular Hemoglobin 33.9 pg (27.0-33.0); Mean Corpuscular Volume 100.3 fL (80-95); Mean Platelet Volume 11.5 fL (8.0-11.0); Monocytes % 8.8; Neutrophils % 50.3; Platelet Count 159 x1000/uL (130-400); RBC Distribution Width 12.3 % (11.8-14.1); White Blood Cell Count 5.23 k/cumm (4.4-10.8)
[2019-05-30 14:57] LABS: ALT 35 U/L (16-63); AST 30 U/L (15-37); Albumin 3.6 g/dL (3.4-5.0); Alkaline Phosphatase 61 U/L (46-116); Anion Gap 7.8 mmol/L (3-11); BUN 16 mg/dL (7-18); Bilirubin, Total 0.7 mg/dL (0.2-1.0); CO2 26.2 mmol/L (21.0-32.0); CREATININE 1.04 mg/dL (0.70-1.30); Calcium 8.7 mg/dL (8.5-10.1); Chloride 108 mmol/L (98-107); Glucose 117 mg/dL (70-100); Potassium 4.5 mmol/L (3.5-5.1); Sodium 142 mmol/L (136-145); Total Protein 7.3 g/dL (6.4-8.2)
[2019-06-19] MEDS: Heparin 500 UNITS/5 ML SYRINGE IV (08:05)
[2019-06-19] MEDS: Normal Saline Flush 10 ML SYR IVP (08:05)
== END 2019-06-23 23:59 | disposition home or self-care (01) ==
LOC: INF 02:10
PROVIDERS: PCP Physician Assistant Medical; Visit Provider Internal Medicine Hematology & Oncology
DX: C20 Malignant neoplasm of rectum (principal); Z45.2 Encounter for adjustment and management of vascular access device
CPT/HCPCS: 36591; 80053; 96523; 82378; 85025

== ENCOUNTER 2019-07-16 00:37 | Outpatient (CLI) | payer MEDICARE, MEDICAID, SELFPAY ==
--- NOTE | 2019-07-16 14:13 | DI.CT_ITS ---
EXAM: CT CHEST/ABD/PEL W CLINICAL HISTORY: RECTAL CA METASTAZIED TO LUNG, C20,C78.0, RESTAGING EXAM. TECHNIQUE: The examination of the chest was carried out according to the usual protocol with intrave nous contrast enhancement.The examination of the abdomen and pelvis was carried out with an intraveno us injection of 100 cc of Omnipaque 350 and oral ingestion of dilute barium. COMPARISON: No exams were available for comparison FINDINGS: An infusion catheter terminates in the superior vena cava near the right atrium. Multiple bilateral pulmonary nodules are slightly increased in size when compared with the prior study of 06/19/2019. Fo r example, the largest nodule in the left lower lobe now measures 14 mm in short axis as compared wit h 12 mm on the prior study. The nodule has small cystic components suggesting necrosis. There is no evidence of a pneumothorax or pleural effusion. The heart is not enlarged. There is no pericardial e ffusion. There is mild diffuse esophageal wall thickening, unchanged. There is no evidence of an aor tic aneurysm. There are small mediastinal lymph nodes, unchanged, including a 6 mm short axis pretra cheal node. There is no pathologically enlarged mediastinal or hilar lymph nodes. There is a 5 mm s clerotic focus in the right posterior 9th rib which has benign characteristics and is unchanged There are multiple low densities. Hepatic mass is slightly increased in size when compared with the most recent previous study. For example, a 4.3 cm in diameter lesion in the inferior tip of the live r posteriorly measures 4 cm on the previous study. Another large lesion measuring 5.5 cm in the post erior segment of the right hepatic lobe is noted just beneath the diaphragmatic dome. This lesion me asured 4.7 cm on the prior study. The gallbladder is normal. There are no stones or ductal dilatatio n. The pancreas, spleen and adrenals are normal. The kidneys are normal. Note is made of diffuse re ctal and distal sigmoid wall thickening with perirectal fat stranding consistent with the given histo ry of rectal cancer and likely radiation therapy, the findings similar to the 06/19/2019 exam. The bow el loops are otherwise unremarkable. There is no evidence of free air or bowel distention. The appe ndix is unremarkable. There is no evidence of an aortic aneurysm. Small mediastinal lymph nodes are u nchanged. There is no pathologically enlarged mediastinal or hilar lymph nodes. The bladder is unrem arkable. The reproductive organs as visualized are unremarkable. There are no suspicious lytic or sc lerotic bony lesions. The soft tissues are unremarkable. IMPRESSION: There is evidence of progression of metastatic disease with increased size of pulmonary nodules. Pl ease see the above discussion. There is also evidence of metastatic disease in the liver. Distal sig moid and rectal wall is thickened likely related to the patient's known primary malignancy suggesting inflammation possibly due to radiation in the appropriate clinical setting but essentially unchanged when compared with the previous study of May 2019.
[2019-07-16] MEDS: Omnipaque 350 MG/ML 50 ML BTL PO (14:15)
[2019-07-16] MEDS: Omnipaque 350 MG/ML 100 ML BTL IV (14:15)
--- NOTE | 2019-07-16 17:32 | DI.VRAD_ITS ---
PROCEDURE INFORMATION: Exam: CT Chest With Contrast Exam date and time: 07/16/2019 2:14 PM Clinical history: 74 years old, male; Other: Rectal cancer metastasized to lung, restaging exam. ; Additional info: Rectal cancer apr 2018. Chemotherapy TECHNIQUE: Imaging protocol: Computed tomography of the chest with intravenous contrast. Radiation optimization: All CT scans at this facility use at least one of these dose optimization techniques: automated exposure control; mA and/or kV adjustment per patient size (includes targeted exams where dose is matched to clinical indication); or iterative reconstruction. COMPARISON: CT CHEST/ABD/PEL W 06/19/2019 9:53 AM FINDINGS: Tubes, catheters and devices: Infusion catheter terminates in the superior vena cava near the right atrium. Lungs: Multiple bilateral pulmonary nodules slightly increased in size since 06/19/2019. For instances the largest nodule in the left lower lobe now measures 14 mm short axis (series 4 image 39) it measured 12 mm on the comparison study. This nodule has small cystic components suggesting necrosis. Pleural space: Unremarkable. No pneumothorax. No pleural effusion. Heart: Unremarkable. No cardiomegaly. No pericardial effusion. Mediastinum: Mild diffuse esophageal thickening unchanged. Aorta: Unremarkable. No aortic aneurysm. Lymph nodes: Small mediastinal lymph nodes unchanged including 6 mm short axis pretracheal node. No pathologically enlarged mediastinal or hilar lymph notes. Bones/joints: 5 mm sclerotic focus right posterior ninth rib (series 4 image 41) has benign characteristics and is unchanged. Soft tissues: Small sliding type hernia. IMPRESSION: PROCEDURE INFORMATION: Exam: CT Abdomen And Pelvis With Contrast Exam date and time: 07/16/2019 2:14 PM Clinical history: 74 years old, male; Other: Rectal cancer metastasized to lung, restaging exam. ; Additional info: Rectal cancer apr 2018. Chemotherapy TECHNIQUE: Imaging protocol: Computed tomography of the abdomen and pelvis with intravenous contrast. Radiation optimization: All CT scans at this facility use at least one of these dose optimization techniques: automated exposure control; mA and/or kV adjustment per patient size (includes targeted exams where dose is matched to clinical indication); or iterative reconstruction. Contrast material: OMNIPAQUE 350; Contrast volume: 100 ml; Contrast route: IV; COMPARISON: CT CHEST/ABD/PEL W 06/19/2019 9:53 AM FINDINGS: Liver: There are multiple low density hepatic masses slightly increased in size since the most recent comparison study. For instance a 4.3 cm in diameter lesion in the inferior tip of the liver posteriorly (series 7, image 675) measured 4 cm on [facility] 2018. Another large lesion measures 5.5 cm in the posterior segment of the right lobe just below the diaphragmatic dome. This measured 4.7 cm on the comparison study. Gallbladder and bile ducts: Normal. No calcified stones. No ductal dilation. Pancreas: Normal. No ductal dilation. Spleen: Normal. No splenomegaly. Adrenals: Normal. No mass. Kidneys and ureters: No renal mass, calculus, or hydronephrosis. Nonspecific perinephric fat stranding noted. Stomach and bowel: There is diffuse rectal and distal sigmoid wall thickening with perirectal fat stranding consistent with the given history of rectal cancer and likely radiation therapy similar to 06/19/2019. The bowel loops are otherwise unremarkable. No free air or bowel dilatation is demonstrated. Appendix: No evidence of appendicitis. Intraperitoneal space: See Stomach And Bowel Finding. Vasculature: Unremarkable. No abdominal aortic aneurysm. Lymph nodes: Unremarkable. No enlarged lymph nodes. Bladder: Unremarkable as visualized. Reproductive: Unremarkable as visualized. Bones/joints: Bone demineralization and diffuse degenerative disc disease. No suspicious lytic or sclerotic bone lesion seen. Soft tissues: Unremarkable. IMPRESSION: Evidence of progression of metastatic disease with increased size of pulmonary and hepatic metastases. Distal sigmoid and rectal wall thickening likely related to the known primary malignancy suggesting inflammation possibly due to radiation in the appropriate clinical setting but essentially unchanged since May 262018. Dictated and Authenticated by: Scott Loyd MD. Ordering:JACKSON Eckert MD
== END 2019-07-16 00:57 ==
PROVIDERS: PCP Physician Assistant Medical; Visit Provider Internal Medicine Hematology & Oncology
DX: C20 Malignant neoplasm of rectum (principal); C78.00 Secondary malignant neoplasm of unspecified lung; K22.8 Other specified diseases of esophagus; R59.0 Localized enlarged lymph nodes; C78.7 Secondary malignant neoplasm of liver and intrahepatic bile duct
CPT/HCPCS: 74177; 80053; 71260; J3490; Q9967

== ENCOUNTER 2019-07-16 00:48 | Outpatient (RCR) | payer MEDICARE, MEDICAID, SELFPAY ==
[2019-06-27] MEDS: Normal Saline Flush 10 ML SYR IVP (13:07)
[2019-06-27] MEDS: Heparin 500 UNITS/5 ML SYRINGE IV (13:08)
[2019-06-27 13:14] LABS: Absolute Basophil Count 0.04 k/cumm (0.0-0.2); Absolute Eosinophil Count 0.17 k/cumm (0.0-0.7); Absolute Lymphocyte Count 1.51 k/cumm (1.2-3.4); Absolute Monocyte Count 0.41 k/cumm (0.11-0.7); Absolute Neutrophil Count 2.22 k/cumm (1.2-6.7); Basophils % 0.9; Eosinophils % 3.9; HCT 38.8 % (40.0-50.0); HGB 13.3 g/dL (13.5-17.5); Lymphocytes % 34.7; Mean Corp. HGB Concentration 34.3 g/dL (32.0-36.0); Mean Corpuscular Hemoglobin 33.3 pg (27.0-33.0); Mean Platelet Volume 11.3 fL (8.0-11.0); Monocytes % 9.4; Neutrophils % 51.1; Platelet Count 179 x1000/uL (130-400); White Blood Cell Count 4.35 k/cumm (4.4-10.8)
[2019-06-27 13:23] LABS: ALT 27 U/L (16-63); AST 30 U/L (15-37); Albumin 3.6 g/dL (3.4-5.0); Alkaline Phosphatase 70 U/L (46-116); Anion Gap 9.4 mmol/L (3-11); BUN 18 mg/dL (7-18); Bilirubin, Total 0.7 mg/dL (0.2-1.0); CO2 25.6 mmol/L (21.0-32.0); CREATININE 0.92 mg/dL (0.70-1.30); Calcium 8.7 mg/dL (8.5-10.1); Chloride 106 mmol/L (98-107); Glucose 113 mg/dL (70-100); Potassium 4.4 mmol/L (3.5-5.1); Sodium 141 mmol/L (136-145); Total Protein 7.5 g/dL (6.4-8.2)
[2019-06-30 09:13] LABS: CEA 6.5 ng/ml
[2019-07-16 12:56] LABS: Abs Immature Grans 0.01 k/cumm (0.0-0.09); Absolute Basophil Count 0.05 k/cumm (0.0-0.2); Absolute Eosinophil Count 0.21 k/cumm (0.0-0.7); Absolute Lymphocyte Count 1.66 k/cumm (1.2-3.4); Absolute Monocyte Count 0.56 k/cumm (0.11-0.7); Absolute Neutrophil Count 2.75 k/cumm (1.2-6.7); HCT 39.4 % (40.0-50.0); HGB 13.2 g/dL (13.5-17.5); Immature Grans % 0.2; Lymphocytes % 31.7; Mean Corp. HGB Concentration 33.5 g/dL (32.0-36.0); Mean Corpuscular Volume 95.4 fL (80-95); Mean Platelet Volume 10.8 fL (8.0-11.0); Monocytes % 10.7; Neutrophils % 52.4; Platelet Count 194 x1000/uL (130-400); RBC 4.13 m/cumm (4.50-6.00); RBC Distribution Width 12.2 % (11.8-14.1); White Blood Cell Count 5.24 k/cumm (4.4-10.8)
[2019-07-16 13:41] LABS: ALT 42 U/L (16-63); AST 34 U/L (15-37); Albumin 3.6 g/dL (3.4-5.0); Alkaline Phosphatase 68 U/L (46-116); Anion Gap 9.4 mmol/L (3-11); BUN 19 mg/dL (7-18); Bilirubin, Total 0.8 mg/dL (0.2-1.0); CO2 27.6 mmol/L (21.0-32.0); CREATININE 0.93 mg/dL (0.70-1.30); Calcium 9.4 mg/dL (8.5-10.1); Chloride 103 mmol/L (98-107); Glucose 90 mg/dL (70-100); Potassium 4.3 mmol/L (3.5-5.1); Sodium 140 mmol/L (136-145); Total Protein 7.6 g/dL (6.4-8.2); Vitamin B12 563 pg/mL (193-986)
[2019-07-16] MEDS: Heparin 500 UNITS/5 ML SYRINGE IV (14:30)
[2019-07-16] MEDS: Normal Saline Flush 10 ML SYR IVP (14:30)
[2019-07-17 13:23] LABS: CEA 8.3 ng/ml
[2019-07-21 08:52] LABS: 1,25-Dihydroxyvitamin D 26 pg/mL (18-64)
== END 2019-07-24 23:59 | disposition home or self-care (01) ==
LOC: INF 00:48
PROVIDERS: PCP Physician Assistant Medical; Visit Provider Internal Medicine Hematology & Oncology
DX: C20 Malignant neoplasm of rectum (principal); C78.00 Secondary malignant neoplasm of unspecified lung; E55.9 Vitamin D deficiency, unspecified; Z45.2 Encounter for adjustment and management of vascular access device; C78.7 Secondary malignant neoplasm of liver and intrahepatic bile duct; K22.8 Other specified diseases of esophagus; R59.0 Localized enlarged lymph nodes
CPT/HCPCS: 36591; 74177; 80053; 71260; 82378; 82607; 82652; 85025; J3490; Q9967

== ENCOUNTER 2019-08-15 02:03 | Outpatient (RCR) | payer MEDICARE, MEDICAID, SELFPAY ==
[2019-08-01] MEDS: Normal Saline Flush 10 ML SYR IVP (09:16)
[2019-08-01 09:32] LABS: Abs Immature Grans 0.01 k/cumm (0.0-0.09); Absolute Basophil Count 0.04 k/cumm (0.0-0.2); Absolute Eosinophil Count 0.19 k/cumm (0.0-0.7); Absolute Neutrophil Count 1.63 k/cumm (1.2-6.7); Basophils % 1.1; Eosinophils % 5.2; HCT 37.8 % (40.0-50.0); HGB 12.7 g/dL (13.5-17.5); Immature Grans % 0.3; Lymphocytes % 38.1; Mean Corp. HGB Concentration 33.6 g/dL (32.0-36.0); Mean Corpuscular Hemoglobin 31.6 pg (27.0-33.0); Mean Platelet Volume 10.3 fL (8.0-11.0); Monocytes % 10.9; Neutrophils % 44.4; Platelet Count 155 x1000/uL (130-400); RBC 4.02 m/cumm (4.50-6.00); RBC Distribution Width 12.8 % (11.8-14.1); White Blood Cell Count 3.67 k/cumm (4.4-10.8)
[2019-08-01 09:40] LABS: ALT 31 U/L (16-63); AST 24 U/L (15-37); Albumin 3.5 g/dL (3.4-5.0); Alkaline Phosphatase 73 U/L (46-116); Anion Gap 8.7 mmol/L (3-11); BUN 23 mg/dL (7-18); Bilirubin, Total 0.6 mg/dL (0.2-1.0); CO2 27.3 mmol/L (21.0-32.0); CREATININE 0.98 mg/dL (0.70-1.30); Calcium 8.9 mg/dL (8.5-10.1); Chloride 105 mmol/L (98-107); Glucose 138 mg/dL (70-100); Sodium 141 mmol/L (136-145); Total Protein 7.2 g/dL (6.4-8.2)
[2019-08-05 08:09] LABS: CEA 13.5 ng/mL (See Note)
[2019-08-15] MEDS: Normal Saline Flush 10 ML SYR IVP (08:40)
[2019-08-15 09:06] LABS: HCT 38.8 % (40.0-50.0); HGB 13.1 g/dL (13.5-17.5); Mean Corp. HGB Concentration 33.8 g/dL (32.0-36.0); Mean Corpuscular Hemoglobin 31.9 pg (27.0-33.0); Mean Corpuscular Volume 94.4 fL (80-95); Platelet Count 146 x1000/uL (130-400); RBC 4.11 m/cumm (4.50-6.00); RBC Distribution Width 14.6 % (11.8-14.1); White Blood Cell Count 12.06 k/cumm (4.4-10.8)
[2019-08-15 09:21] LABS: ALT 34 U/L (16-63); AST 25 U/L (15-37); Albumin 3.5 g/dL (3.4-5.0); Alkaline Phosphatase 106 U/L (46-116); Anion Gap 9.4 mmol/L (3-11); BUN 20 mg/dL (7-18); Bilirubin, Total 0.4 mg/dL (0.2-1.0); CO2 25.6 mmol/L (21.0-32.0); CREATININE 1.04 mg/dL (0.70-1.30); Calcium 8.9 mg/dL (8.5-10.1); Chloride 106 mmol/L (98-107); Glucose 152 mg/dL (74-106); Sodium 141 mmol/L (136-145); Total Protein 7.2 g/dL (6.4-8.2)
[2019-08-15 09:35] LABS: Absolute Lymphocyte Count 1.81 k/cumm (1.2-3.4); Absolute Monocyte Count 0.48 k/cumm (0.11-0.7); Absolute Neutrophil Count 9.41 k/cumm (1.2-6.7); Atypical Lymphocytes % 1; Diff Comment Manual Differential; RBC Morphology Normal
[2019-08-18 10:07] LABS: CEA 14.3 ng/mL (See Note)
== END 2019-08-23 23:59 | disposition home or self-care (01) ==
LOC: INF 02:03
PROVIDERS: PCP Physician Assistant Medical; Visit Provider Internal Medicine Hematology & Oncology
DX: C20 Malignant neoplasm of rectum (principal); C78.00 Secondary malignant neoplasm of unspecified lung; Z45.2 Encounter for adjustment and management of vascular access device
CPT/HCPCS: 36591; 80053; 82378; 85025

== ENCOUNTER 2019-09-05 01:15 | Outpatient (RCR) | payer MEDICARE, MEDICAID, SELFPAY ==
[2019-08-25] MEDS: Normal Saline Flush 10 ML SYR IVP (10:45)
[2019-08-25 11:08] LABS: Abs Immature Grans 0.03 k/cumm (0.0-0.09); Absolute Basophil Count 0.28 k/cumm (0.0-0.2); Absolute Eosinophil Count 0.27 k/cumm (0.0-0.7); Absolute Lymphocyte Count 1.74 k/cumm (1.2-3.4); Absolute Monocyte Count 0.84 k/cumm (0.11-0.7); Absolute Neutrophil Count 4.74 k/cumm (1.2-6.7); Basophils % 3.5; Eosinophils % 3.4; HCT 40.1 % (40.0-50.0); HGB 13.5 g/dL (13.5-17.5); Immature Grans % 0.4; Mean Corp. HGB Concentration 33.7 g/dL (32.0-36.0); Mean Corpuscular Hemoglobin 31.8 pg (27.0-33.0); Mean Corpuscular Volume 94.6 fL (80-95); Mean Platelet Volume 11.1 fL (8.0-11.0); Monocytes % 10.6; Neutrophils % 60.1; Platelet Count 239 x1000/uL (130-400); RBC 4.24 m/cumm (4.50-6.00); RBC Distribution Width 15.2 % (11.8-14.1)
[2019-08-25 11:27] LABS: ALT 34 U/L (16-63); AST 28 U/L (15-37); Albumin 3.9 g/dL (3.4-5.0); Alkaline Phosphatase 80 U/L (46-116); Anion Gap 10.1 mmol/L (3-11); BUN 19 mg/dL (7-18); Bilirubin, Total 0.7 mg/dL (0.2-1.0); CO2 25.9 mmol/L (21.0-32.0); CREATININE 1.08 mg/dL (0.70-1.30); Calcium 9.5 mg/dL (8.5-10.1); Chloride 105 mmol/L (98-107); Glucose 101 mg/dL (74-106); Potassium 4.3 mmol/L (3.5-5.1); Sodium 141 mmol/L (136-145); Total Protein 7.8 g/dL (6.4-8.2)
[2019-09-05 12:26] LABS: Abs Immature Grans 0.13 k/cumm (0.0-0.09); Absolute Basophil Count 0.08 k/cumm (0.0-0.2); Absolute Eosinophil Count 0.27 k/cumm (0.0-0.7); Absolute Lymphocyte Count 2.12 k/cumm (1.2-3.4); Absolute Monocyte Count 1.04 k/cumm (0.11-0.7); Basophils % 0.5; Eosinophils % 1.6; HCT 39.2 % (40.0-50.0); Immature Grans % 0.8; Lymphocytes % 12.6; Mean Corp. HGB Concentration 33.2 g/dL (32.0-36.0); Mean Corpuscular Hemoglobin 31.4 pg (27.0-33.0); Mean Corpuscular Volume 94.7 fL (80-95); Mean Platelet Volume 10.9 fL (8.0-11.0); Monocytes % 6.2; Neutrophils % 78.3; Platelet Count 176 x1000/uL (130-400); RBC 4.14 m/cumm (4.50-6.00); RBC Distribution Width 15.6 % (11.8-14.1); White Blood Cell Count 16.83 k/cumm (4.4-10.8)
[2019-09-05] MEDS: Heparin 500 UNITS/5 ML SYRINGE IV (12:26)
[2019-09-05] MEDS: Normal Saline Flush 10 ML SYR IVP (12:26)
[2019-09-05 12:28] LABS: Absolute Neutrophil Count 13.18 k/cumm (1.2-6.7)
[2019-09-05 12:38] LABS: ALT 28 U/L (16-63); AST 24 U/L (15-37); Albumin 3.6 g/dL (3.4-5.0); Alkaline Phosphatase 146 U/L (46-116); Anion Gap 8.7 mmol/L (3-11); BUN 20 mg/dL (7-18); Bilirubin, Total 0.4 mg/dL (0.2-1.0); CO2 27.3 mmol/L (21.0-32.0); CREATININE 1.12 mg/dL (0.70-1.30); Chloride 104 mmol/L (98-107); Glucose 156 mg/dL (74-106); Potassium 4.3 mmol/L (3.5-5.1); Sodium 140 mmol/L (136-145); Total Protein 7.3 g/dL (6.4-8.2)
[2019-09-08 09:48] LABS: CEA 7.7 ng/mL (See Note)
[2019-09-26 08:53] LABS: Abs Immature Grans 0.06 k/cumm (0.0-0.09); Absolute Basophil Count 0.12 k/cumm (0.0-0.2); Absolute Eosinophil Count 0.34 k/cumm (0.0-0.7); Absolute Lymphocyte Count 1.84 k/cumm (1.2-3.4); Absolute Monocyte Count 0.64 k/cumm (0.11-0.7); Absolute Neutrophil Count 6.05 k/cumm (1.2-6.7); Basophils % 1.3; Eosinophils % 3.8; HCT 39.9 % (40.0-50.0); HGB 13.5 g/dL (13.5-17.5); Immature Grans % 0.7 %; Lymphocytes % 20.3; Mean Corp. HGB Concentration 33.8 g/dL (32.0-36.0); Mean Corpuscular Hemoglobin 32.1 pg (27.0-33.0); Monocytes % 7.1; Neutrophils % 66.8; Platelet Count 185 x1000/uL (130-400); RBC Distribution Width 16.6 % (11.8-14.1); White Blood Cell Count 9.05 k/cumm (4.4-10.8)
[2019-09-26] MEDS: Normal Saline Flush 10 ML SYR IVP (08:55)
[2019-09-26 09:08] LABS: ALT 33 U/L (16-63); AST 26 U/L (15-37); Albumin 3.4 g/dL (3.4-5.0); Alkaline Phosphatase 109 U/L (46-116); Anion Gap 9.9 mmol/L (3-11); BUN 24 mg/dL (7-18); Bilirubin, Total 0.5 mg/dL (0.2-1.0); CO2 25.1 mmol/L (21.0-32.0); CREATININE 1.06 mg/dL (0.70-1.30); Calcium 8.9 mg/dL (8.5-10.1); Chloride 105 mmol/L (98-107); Glucose 134 mg/dL (74-106); Potassium 4.1 mmol/L (3.5-5.1); Sodium 140 mmol/L (136-145); Total Protein 7.1 g/dL (6.4-8.2)
[2019-09-29] MEDS: Heparin 500 UNITS/5 ML SYRINGE IV (10:58)
[2019-09-29] MEDS: Normal Saline Flush 10 ML SYR IVP (10:58)
[2019-09-29 11:27] LABS: CEA 8.9 ng/mL (See Note)
[2019-10-10] MEDS: Normal Saline Flush 10 ML SYR IVP (09:05)
[2019-10-10 09:28] LABS: Abs Immature Grans 0.09 k/cumm (0.0-0.09); Absolute Basophil Count 0.07 k/cumm (0.0-0.2); Absolute Lymphocyte Count 1.79 k/cumm (1.2-3.4); Absolute Monocyte Count 0.68 k/cumm (0.11-0.7); Absolute Neutrophil Count 8.72 k/cumm (1.2-6.7); Basophils % 0.6; Eosinophils % 1.7; HCT 38.2 % (40.0-50.0); HGB 12.8 g/dL (13.5-17.5); Immature Grans % 0.8 %; Lymphocytes % 15.5; Mean Corp. HGB Concentration 33.5 g/dL (32.0-36.0); Mean Corpuscular Hemoglobin 32.3 pg (27.0-33.0); Mean Corpuscular Volume 96.5 fL (80-95); Mean Platelet Volume 11.4 fL (8.0-11.0); Monocytes % 5.9; Neutrophils % 75.5; Platelet Count 129 x1000/uL (130-400); RBC 3.96 m/cumm (4.50-6.00); RBC Distribution Width 16.9 % (11.8-14.1); White Blood Cell Count 11.55 k/cumm (4.4-10.8)
[2019-10-10 09:49] LABS: ALT 36 U/L (16-63); AST 24 U/L (15-37); Albumin 3.3 g/dL (3.4-5.0); Alkaline Phosphatase 140 U/L (46-116); Anion Gap 8.9 mmol/L (3-11); BUN 21 mg/dL (7-18); Bilirubin, Total 0.6 mg/dL (0.2-1.0); CO2 26.1 mmol/L (21.0-32.0); CREATININE 1.27 mg/dL (0.70-1.30); Calcium 8.7 mg/dL (8.5-10.1); Chloride 106 mmol/L (98-107); Estimated GFR 55.29 (mL/min/1.73m2); Glucose 163 mg/dL (74-106); Sodium 141 mmol/L (136-145); Total Protein 6.4 g/dL (6.4-8.2)
[2019-10-13 11:22] LABS: CEA 9.6 ng/mL (See Note)
== END 2019-09-23 23:59 | disposition other institution (70) ==
LOC: INF 01:15
PROVIDERS: PCP Physician Assistant Medical; Visit Provider Internal Medicine Hematology & Oncology
DX: C20 Malignant neoplasm of rectum (principal); C78.00 Secondary malignant neoplasm of unspecified lung; Z45.2 Encounter for adjustment and management of vascular access device
CPT/HCPCS: 36591; 80053; 96523; 82378; 85025

== ENCOUNTER 2019-09-29 01:15 | Outpatient (CLI) | payer MEDICARE, MEDICAID, SELFPAY ==
--- NOTE | 2019-09-29 11:06 | DI.CT_ITS ---
EXAM: CT CHEST/ABD/PEL W CLINICAL HISTORY: RECTAL CA WITH LIVER AND LUNG METS, ON CHEMO, RESTAGING EXAM TECHNIQUE: Post IV and oral contrast. COMPARISON: CT CHEST/ABD/PEL W from 07/16/2019 FINDINGS: Chest CT: No adenopathy, pleural or pericardial effusions are seen. Numerous pulmonary nodules are again noted in both upper and lower lobes. There has been no change in size of the nodules, largest being at the left lower lobe posteriorly which again shows a lucent center. No acute infiltrates are seen. No bony metastases are identified. Abdomen and pelvic CT: Liver metastases are also stable. No new lesions are seen. There is no bilia ry dilatation. The gallbladder, spleen, pancreas, kidneys and adrenals are unremarkable. Thickening of the wall of the distal esophagus is again noted. There is stable thickening of the wall of the re ctum. Prostate appears mildly enlarged and unchanged. The bladder is unremarkable. No adenopathy i s seen. There is no ascites. Degenerative changes are seen in the spine. No lytic or blastic bony lesions are seen. IMPRESSION: 1. Stable multiple pulmonary metastases. 2. Stable liver metastases. 3. Stable diffuse wall thickening of the rectosigmoid.
[2019-09-29] MEDS: Omnipaque 350 MG/ML 100 ML BTL PO (11:27)
[2019-09-29] MEDS: Omnipaque 350 MG/ML 50 ML BTL PO (11:28)
== END 2019-09-29 01:35 ==
PROVIDERS: PCP Physician Assistant Medical; Visit Provider Internal Medicine Hematology & Oncology
DX: C20 Malignant neoplasm of rectum (principal); C78.00 Secondary malignant neoplasm of unspecified lung; C78.7 Secondary malignant neoplasm of liver and intrahepatic bile duct; Z92.21 Personal history of antineoplastic chemotherapy
CPT/HCPCS: 74177; 71260; J3490; Q9967

== ENCOUNTER 2019-10-24 10:55 | Outpatient (RCR) | payer MEDICARE, MEDICAID, SELFPAY ==
[2019-10-24] MEDS: Normal Saline Flush 10 ML SYR IVP (09:44)
[2019-10-24 09:54] LABS: Abs Immature Grans 0.13 k/cumm (0.0-0.09); Absolute Eosinophil Count 0.16 k/cumm (0.0-0.7); Absolute Monocyte Count 0.82 k/cumm (0.11-0.7); Absolute Neutrophil Count 6.69 k/cumm (1.2-6.7); Eosinophils % 1.6; HCT 38.4 % (40.0-50.0); Immature Grans % 1.3 %; Lymphocytes % 19.4; Mean Corp. HGB Concentration 33.9 g/dL (32.0-36.0); Mean Corpuscular Hemoglobin 33.1 pg (27.0-33.0); Mean Corpuscular Volume 97.7 fL (80-95); Mean Platelet Volume 10.6 fL (8.0-11.0); Monocytes % 8.4; Neutrophils % 68.3; Platelet Count 120 x1000/uL (130-400); RBC 3.93 m/cumm (4.50-6.00); RBC Distribution Width 16.6 % (11.8-14.1)
[2019-10-24 10:12] LABS: ALT 36 U/L (16-63); AST 23 U/L (15-37); Albumin 3.4 g/dL (3.4-5.0); Alkaline Phosphatase 139 U/L (46-116); Anion Gap 8.4 mmol/L (3-11); BUN 18 mg/dL (7-18); Bilirubin, Total 0.6 mg/dL (0.2-1.0); CO2 25.6 mmol/L (21.0-32.0); CREATININE 1.36 mg/dL (0.70-1.30); Calcium 8.7 mg/dL (8.5-10.1); Chloride 106 mmol/L (98-107); Estimated GFR 51.09 (mL/min/1.73m2); Glucose 134 mg/dL (74-106); Potassium 4.2 mmol/L (3.5-5.1); Sodium 140 mmol/L (136-145); Total Protein 6.7 g/dL (6.4-8.2)
[2019-10-27 10:30] LABS: CEA 10.8 ng/mL (See Note)
== END 2019-10-24 23:59 | disposition other institution (70) ==
LOC: INF 10:55
PROVIDERS: PCP Physician Assistant Medical; Visit Provider Internal Medicine Hematology & Oncology
CPT/HCPCS: 36591; 74177; 80053; 96523; 71260; 82378; 85025; J3490; Q9967

== ENCOUNTER 2019-11-14 02:51 | Outpatient (RCR) | payer MEDICARE, MEDICAID, SELFPAY ==
[2019-11-07] MEDS: Normal Saline Flush 10 ML SYR 30 ML IVP (08:37)
[2019-11-07 09:00] LABS: Abs Immature Grans 0.13 k/cumm (0.0-0.09); Absolute Basophil Count 0.13 k/cumm (0.0-0.2); Absolute Eosinophil Count 0.16 k/cumm (0.0-0.7); Absolute Lymphocyte Count 2.03 k/cumm (1.2-3.4); Absolute Monocyte Count 0.75 k/cumm (0.11-0.7); Absolute Neutrophil Count 7.43 k/cumm (1.2-6.7); Basophils % 1.2; Eosinophils % 1.5; HCT 39.4 % (40.0-50.0); HGB 13.2 g/dL (13.5-17.5); Immature Grans % 1.2 %; Lymphocytes % 19.1; Mean Corp. HGB Concentration 33.5 g/dL (32.0-36.0); Mean Corpuscular Hemoglobin 32.8 pg (27.0-33.0); Mean Platelet Volume 10.9 fL (8.0-11.0); Monocytes % 7.1; Neutrophils % 69.9; Platelet Count 137 x1000/uL (130-400); RBC 4.02 m/cumm (4.50-6.00); RBC Distribution Width 16.4 % (11.8-14.1); White Blood Cell Count 10.63 k/cumm (4.4-10.8)
[2019-11-07 09:18] LABS: ALT 30 U/L (16-63); AST 23 U/L (15-37); Albumin 3.5 g/dL (3.4-5.0); Alkaline Phosphatase 146 U/L (46-116); Anion Gap 11.3 mmol/L (3-11); BUN 17 mg/dL (7-18); Bilirubin, Total 0.6 mg/dL (0.2-1.0); CO2 24.7 mmol/L (21.0-32.0); CREATININE 1.45 mg/dL (0.70-1.30); Calcium 8.7 mg/dL (8.5-10.1); Chloride 104 mmol/L (98-107); Estimated GFR 47.44 (mL/min/1.73m2); Glucose 175 mg/dL (74-106); Sodium 140 mmol/L (136-145); Total Protein 6.7 g/dL (6.4-8.2)
== END 2019-11-22 23:59 | disposition home or self-care (01) ==
LOC: INF 02:51
PROVIDERS: PCP Physician Assistant Medical; Visit Provider Internal Medicine Hematology & Oncology
DX: C20 Malignant neoplasm of rectum (principal); C78.00 Secondary malignant neoplasm of unspecified lung; Z45.2 Encounter for adjustment and management of vascular access device
CPT/HCPCS: 36591; 80053; 82378; 85025

== ENCOUNTER 2019-12-16 02:06 | Outpatient (CLI) | payer MEDICARE, MEDICAID, SELFPAY ==
--- NOTE | 2019-12-16 | DI.CT_ITS ---
EXAM: CT CHEST/ABD/PEL W CLINICAL HISTORY: RECTAL CA WITH METS, ON CHEMO, COMPARE TO 09/29/19 COMPARISON: CT CHEST/ABD/PEL W from 09/29/2019 FINDINGS: CT examination of the chest, abdomen and pelvis was performed with intravenous infusion of 100 cc of Omnipaque 350. Scanning of the chest shows numerous intrapulmonary nodules consistent with metastasi s. Comparison with prior study of September 29 shows mild increase in size of many of these nodules. Left lower lobe nodule previously 15 by 18 mm and now measures 18 by 21 millimeters. No significant new nodule seen. Nonspecific appearance of multiple visible but small mediastinal lymph nodes, none in excess of 1 cm. No evidence of pulmonary embolic disease or other major vascular abnormality. Tr acheobronchial tree appears intact. No pleural effusion. There are multiple low-attenuation hepatic lesions. These mostly appear unchanged from the prior edda dy, except for slight interval increase in size of an inferiorly located right lobe hepatic lesion in creased in size 41 x 53 millimeters to 42 x 57 millimeters. Spleen is unremarkable in appearance. Abdominal aorta is of normal diameter and no major vascular ab normality is seen. No gross retroperitoneal, mesenteric, or pelvic adenopathy seen. No focal bowel pathology apart from previously noted rectal wall thickening in a patient with history of rectal carc inoma. Adrenals and kidneys appear normal, no urinary tract calcification or obstruction. No signif icant abdominal wall hernia. No bony lesion identified on scanning of the chest, abdomen and pelvis. IMPRESSION: Mild interval increase in size of multiple intrapulmonary metastases. Slight interval increase in size of 1 hepatic metastatic lesion, remainder of the hepatic metastatic lesions appear unchanged. No other significant new evidence of metastatic disease in comparison with prior study of September 29.
[2019-12-16] MEDS: Omnipaque 350 MG/ML 50 ML BTL PO (07:29)
[2019-12-16] MEDS: Omnipaque 350 MG/ML 100 ML BTL IJ (09:05)
[2019-12-16] MEDS: Normal Saline - Diluent 50 ML VIAL IV (09:06)
== END 2019-12-16 02:26 ==
PROVIDERS: PCP Physician Assistant Medical; Visit Provider Nurse Practitioner Adult Health
DX: C20 Malignant neoplasm of rectum (principal); C78.02 Secondary malignant neoplasm of left lung; C78.01 Secondary malignant neoplasm of right lung; C78.7 Secondary malignant neoplasm of liver and intrahepatic bile duct; Z92.21 Personal history of antineoplastic chemotherapy
CPT/HCPCS: 36591; 74177; 71260; 82565; J3490; Q9967

== ENCOUNTER 2019-12-19 03:44 | Outpatient (RCR) | payer MEDICARE, MEDICAID, SELFPAY ==
[2019-12-05] MEDS: Normal Saline Flush 10 ML SYR IVP (08:50)
[2019-12-05 09:07] LABS: Abs Immature Grans 0.02 k/cumm (0.0-0.09); Absolute Basophil Count 0.16 k/cumm (0.0-0.2); Absolute Eosinophil Count 0.28 k/cumm (0.0-0.7); Absolute Lymphocyte Count 1.75 k/cumm (1.2-3.4); Absolute Monocyte Count 1.05 k/cumm (0.11-0.7); Absolute Neutrophil Count 4.35 k/cumm (1.2-6.7); Basophils % 2.1; Eosinophils % 3.7; HGB 13.8 g/dL (13.5-17.5); Immature Grans % 0.3 %; Mean Corp. HGB Concentration 32.9 g/dL (32.0-36.0); Mean Corpuscular Hemoglobin 32.4 pg (27.0-33.0); Mean Corpuscular Volume 98.6 fL (80-95); Mean Platelet Volume 11.4 fL (8.0-11.0); Monocytes % 13.8; Neutrophils % 57.1; Platelet Count 202 x1000/uL (130-400); RBC 4.26 m/cumm (4.50-6.00); RBC Distribution Width 14.9 % (11.8-14.1); White Blood Cell Count 7.61 k/cumm (4.4-10.8)
[2019-12-05 09:16] LABS: ALT 63 U/L (16-63); AST 41 U/L (15-37); Albumin 3.6 g/dL (3.4-5.0); Alkaline Phosphatase 82 U/L (46-116); Anion Gap 7.1 mmol/L (3-11); BUN 24 mg/dL (7-18); Bilirubin, Total 1.1 mg/dL (0.2-1.0); CO2 28.9 mmol/L (21.0-32.0); CREATININE 1.14 mg/dL (0.70-1.30); Calcium 8.8 mg/dL (8.5-10.1); Chloride 103 mmol/L (98-107); Glucose 142 mg/dL (74-106); Potassium 4.5 mmol/L (3.5-5.1); Sodium 139 mmol/L (136-145); Total Protein 7.2 g/dL (6.4-8.2)
[2019-12-06 18:17] LABS: G-6-PD, Qn, RBC 11.2 U/g Hb (8.8 - 13.4)
[2019-12-08 11:08] LABS: CEA 8.9 ng/mL (See Note)
[2019-12-16] MEDS: Heparin 500 UNITS/5 ML SYRINGE IV (07:15)
[2019-12-16] MEDS: Normal Saline Flush 10 ML SYR IVP (07:15)
[2019-12-19] MEDS: Normal Saline Flush 10 ML SYR IVP (09:03)
[2019-12-19 09:05] LABS: Abs Immature Grans 0.05 k/cumm (0.0-0.09); Absolute Basophil Count 0.03 k/cumm (0.0-0.2); Absolute Eosinophil Count 0.41 k/cumm (0.0-0.7); Absolute Lymphocyte Count 1.73 k/cumm (1.2-3.4); Absolute Monocyte Count 0.68 k/cumm (0.11-0.7); Absolute Neutrophil Count 6.91 k/cumm (1.2-6.7); Basophils % 0.3; Eosinophils % 4.2; HGB 13.6 g/dL (13.5-17.5); Immature Grans % 0.5 %; Lymphocytes % 17.6; Mean Corp. HGB Concentration 33.2 g/dL (32.0-36.0); Mean Corpuscular Hemoglobin 32.7 pg (27.0-33.0); Mean Corpuscular Volume 98.6 fL (80-95); Mean Platelet Volume 10.4 fL (8.0-11.0); Monocytes % 6.9; Neutrophils % 70.5; Platelet Count 130 x1000/uL (130-400); RBC 4.16 m/cumm (4.50-6.00); RBC Distribution Width 14.8 % (11.8-14.1); White Blood Cell Count 9.81 k/cumm (4.4-10.8)
[2019-12-19 09:34] LABS: ALT 49 U/L (16-63); AST 34 U/L (15-37); Albumin 3.5 g/dL (3.4-5.0); Alkaline Phosphatase 131 U/L (46-116); Anion Gap 7.6 mmol/L (3-11); BUN 22 mg/dL (7-18); Bilirubin, Total 0.5 mg/dL (0.2-1.0); CO2 27.4 mmol/L (21.0-32.0); CREATININE 1.11 mg/dL (0.70-1.30); Chloride 105 mmol/L (98-107); Glucose 148 mg/dL (74-106); Potassium 4.1 mmol/L (3.5-5.1); Sodium 140 mmol/L (136-145); Total Protein 7.1 g/dL (6.4-8.2)
[2019-12-22 10:20] LABS: CEA 8.9 ng/mL (See Note)
== END 2019-12-23 23:59 | disposition home or self-care (01) ==
LOC: INF 03:44
PROVIDERS: PCP Physician Assistant Medical; Visit Provider Internal Medicine Hematology & Oncology
DX: C20 Malignant neoplasm of rectum (principal); C78.00 Secondary malignant neoplasm of unspecified lung; Z45.2 Encounter for adjustment and management of vascular access device
CPT/HCPCS: 36591; 80053; 82378; 82565; 82955; 85025

== ENCOUNTER 2020-01-16 03:35 | Outpatient (RCR) | payer MEDICARE, MEDICAID, SELFPAY ==
[2020-01-02] MEDS: Normal Saline Flush 10 ML SYR IVP (09:36)
[2020-01-02 09:45] LABS: HCT 40.9 % (40.0-50.0); Mean Corp. HGB Concentration 34.2 g/dL (32.0-36.0); Mean Corpuscular Hemoglobin 33.3 pg (27.0-33.0); Mean Corpuscular Volume 97.1 fL (80-95); Mean Platelet Volume 10.5 fL (8.0-11.0); Platelet Count 171 x1000/uL (130-400); RBC 4.21 m/cumm (4.50-6.00); RBC Distribution Width 14.8 % (11.8-14.1); White Blood Cell Count 11.84 k/cumm (4.4-10.8)
[2020-01-02 09:57] LABS: Absolute Basophil Count 0.36 k/cumm (0.0-0.2); Absolute Eosinophil Count 0.47 k/cumm (0.0-0.7); Absolute Lymphocyte Count 2.37 k/cumm (1.2-3.4); Absolute Monocyte Count 0.24 k/cumm (0.11-0.7); Absolute Neutrophil Count 8.17 k/cumm (1.2-6.7); Diff Comment Manual Differential; RBC Morphology Normal
[2020-01-02 10:11] LABS: ALT 47 U/L (16-63); AST 30 U/L (15-37); Albumin 3.6 g/dL (3.4-5.0); Alkaline Phosphatase 131 U/L (46-116); Anion Gap 8.7 mmol/L (3-11); BUN 22 mg/dL (7-18); Bilirubin, Total 0.5 mg/dL (0.2-1.0); CO2 27.3 mmol/L (21.0-32.0); CREATININE 1.22 mg/dL (0.70-1.30); Calcium 9.2 mg/dL (8.5-10.1); Chloride 105 mmol/L (98-107); Estimated GFR 57.91 (mL/min/1.73m2); Glucose 131 mg/dL (74-106); Sodium 141 mmol/L (136-145); Total Protein 7.1 g/dL (6.4-8.2)
[2020-01-06 18:31] LABS: CEA 10.7 ng/mL (See Note)
[2020-01-16] MEDS: Normal Saline Flush 10 ML SYR IVP (09:43)
[2020-01-16 09:46] LABS: Abs Immature Grans 0.24 k/cumm (0.0-0.09); Absolute Basophil Count 0.09 k/cumm (0.0-0.2); Absolute Eosinophil Count 0.15 k/cumm (0.0-0.7); Basophils % 0.6; HCT 40.8 % (40.0-50.0); HGB 13.9 g/dL (13.5-17.5); Immature Grans % 1.6 %; Lymphocytes % 16.7; Mean Corp. HGB Concentration 34.1 g/dL (32.0-36.0); Mean Corpuscular Volume 96.9 fL (80-95); Mean Platelet Volume 10.2 fL (8.0-11.0); Monocytes % 7.5; Neutrophils % 72.6; Platelet Count 172 x1000/uL (130-400); RBC 4.21 m/cumm (4.50-6.00); RBC Distribution Width 14.9 % (11.8-14.1); White Blood Cell Count 14.63 k/cumm (4.4-10.8)
[2020-01-16 10:06] LABS: ALT 44 U/L (16-63); AST 28 U/L (15-37); Albumin 3.6 g/dL (3.4-5.0); Alkaline Phosphatase 151 U/L (46-116); Anion Gap 6.4 mmol/L (3-11); BUN 18 mg/dL (7-18); Bilirubin, Total 0.7 mg/dL (0.2-1.0); CO2 27.6 mmol/L (21.0-32.0); CREATININE 1.22 mg/dL (0.70-1.30); Calcium 9.4 mg/dL (8.5-10.1); Chloride 102 mmol/L (98-107); Estimated GFR 57.91 (mL/min/1.73m2); Glucose 132 mg/dL (74-106); Potassium 4.5 mmol/L (3.5-5.1); Sodium 136 mmol/L (136-145); Total Protein 7.3 g/dL (6.4-8.2)
[2020-01-16 10:08] LABS: Absolute Lymphocyte Count 2.44 k/cumm (1.2-3.4); Absolute Neutrophil Count 10.62 k/cumm (1.2-6.7)
[2020-01-19 11:08] LABS: CEA 12.2 ng/mL (See Note)
== END 2020-01-22 23:59 | disposition home or self-care (01) ==
LOC: INF 03:35
PROVIDERS: PCP Physician Assistant Medical; Visit Provider Internal Medicine Hematology & Oncology
DX: C20 Malignant neoplasm of rectum (principal); C78.00 Secondary malignant neoplasm of unspecified lung; Z45.2 Encounter for adjustment and management of vascular access device
CPT/HCPCS: 36591; 80053; 82378; 85025

== ENCOUNTER 2020-02-17 00:23 | Outpatient (CLI) | payer MEDICARE, MEDICAID, SELFPAY ==
--- NOTE | 2020-02-17 10:14 | DI.CT_ITS ---
EXAM: CT CHEST/ABD/PEL W CLINICAL HISTORY: RECTAL CA METASTASIZED TO LIVER,C20,C78.7. TECHNIQUE: Imaging Protocol: Axial computed tomography images with coronal and sagittal reformatted images were created and reviewed CONTRAST MATERIAL: Intravenous: Omnipaque 350 Contrast volume:structured data in ml Oral: yes / no COMPARISON: CT CT CHEST/ABD/PEL W from 12/16/2019 FINDINGS: CHEST: Tracheobronchial tree: Patent where visualized. Mediastinum and Va: No dominant adenopathy or fluid collection. Pulmonary parenchyma: Multiple pulmonary metastases are again noted. The lesion in the right lower l obe appears to have increased in size measuring 9 x 11 millimeters compared with 10 x 8. It is cavit kenroy. Larger the largest lesion at the left lower lobe appears stable in size. Multiple other nodule s are stable in size.. Pleura: No effusion or pneumothorax. Lymph nodes: Within normal limits. Aorta: Thoracic portion non-dilated. Heart: Normal in size. No coronary artery calcifications are seen. Bones: Disc osteophytes. No metastatic lesions are visible. A port is again noted over the left pectoral muscle. ABDOMEN: Liver: Normal density. There has been interval increase in size of the large metastatic lesion noted near the dome of the diaphragm, now measuring 5.5 x 6.5 cm compared with 5.2 x 6.2 cm on the previous exam. The lesion near the inferior right lobe measures 4.5 x 5.8 compared with 4.2 x 5.7 cm. The other smaller metastatic lesions appear stable. Gallbladder and biliary tract: No radiodense calculus or dilation. Pancreas: Normal density, no abnormal calcifications or inflammatory process. Spleen: Normal. Kidneys: Normal size, contour and axis. No radiodense stones or obstructive uropathy. No masses seen. Adrenal glands: No masses seen. Aorta: Abdominal portion non-dilated. Lymph nodes: Within normal limits. PELVIS: Bladder: Symmetric distention, no gross wall thickening. Bowel: There is a large quantity of stool throughout the colon. There is stable thickening of the re ctum.. Peritoneal cavity: No ascites, collection or mesenteric inflammatory response. Bones: Degenerative changes.. Reproductive organs: Mildly enlarged prostate.. IMPRESSION: Mild interval increase in size a right lower lobe pulmonary metastasis. The majority of the pulmonar y metastases appear stable in size. Mild interval increase in size of the two largest metastatic lesions in the liver. No new metastatic lesions or adenopathy. RADIATION DOSE DELIVERED: 1,401.97mGy.cm Total DLP DATA REPOSITORY: All CT scans at this facility are submitted to the National Radiology Data Registry (NRDR) Dose Index Registry (DIR) with the [employer] ([employer]). RADIATION OPTIMIZATION: All CT scans at this facility use at least one of these dose optimization te chniques: automated exposure control; mA and/or kV adjustment per patient size (includes targeted exa ms where dose is matched to clinical indication); or iterative reconstruction.
[2020-02-17] MEDS: Normal Saline - Diluent 50 ML VIAL IV (10:28)
[2020-02-17] MEDS: Omnipaque 350 MG/ML 100 ML BTL IJ (10:28)
== END 2020-02-17 00:43 ==
PROVIDERS: PCP Physician Assistant Medical; Visit Provider Nurse Practitioner Adult Health
DX: C20 Malignant neoplasm of rectum (principal); C78.7 Secondary malignant neoplasm of liver and intrahepatic bile duct; C78.01 Secondary malignant neoplasm of right lung; N40.0 Benign prostatic hyperplasia without lower urinary tract symptoms
CPT/HCPCS: 74177; 96523; 71260; J3490

== ENCOUNTER 2020-02-20 02:50 | Outpatient (RCR) | payer MEDICARE, MEDICAID, SELFPAY ==
[2020-02-06] MEDS: Normal Saline Flush 10 ML SYR IVP (10:00)
[2020-02-06 10:17] LABS: Abs Immature Grans 0.03 k/cumm (0.0-0.09); Absolute Basophil Count 0.11 k/cumm (0.0-0.2); Absolute Eosinophil Count 0.41 k/cumm (0.0-0.7); Absolute Lymphocyte Count 2.11 k/cumm (1.2-3.4); Absolute Monocyte Count 1.27 k/cumm (0.11-0.7); Absolute Neutrophil Count 5.68 k/cumm (1.2-6.7); Basophils % 1.1; Eosinophils % 4.3; HCT 40.9 % (40.0-50.0); HGB 13.8 g/dL (13.5-17.5); Immature Grans % 0.3 %; Mean Corp. HGB Concentration 33.7 g/dL (32.0-36.0); Mean Corpuscular Volume 97.8 fL (80-95); Monocytes % 13.2; Neutrophils % 59.1; Platelet Count 173 x1000/uL (130-400); RBC 4.18 m/cumm (4.50-6.00); RBC Distribution Width 14.9 % (11.8-14.1); White Blood Cell Count 9.61 k/cumm (4.4-10.8)
[2020-02-06 10:29] LABS: ALT 61 U/L (16-63); AST 43 U/L (15-37); Albumin 3.5 g/dL (3.4-5.0); Alkaline Phosphatase 99 U/L (46-116); Anion Gap 6.8 mmol/L (3-11); BUN 25 mg/dL (7-18); Bilirubin, Total 1.1 mg/dL (0.2-1.0); CO2 27.2 mmol/L (21.0-32.0); CREATININE 1.17 mg/dL (0.70-1.30); Calcium 9.1 mg/dL (8.5-10.1); Chloride 102 mmol/L (98-107); Glucose 118 mg/dL (74-106); Potassium 4.3 mmol/L (3.5-5.1); Sodium 136 mmol/L (136-145); Total Protein 7.2 g/dL (6.4-8.2)
[2020-02-09 10:52] LABS: CEA 14.6 ng/mL (See Note)
[2020-02-17] MEDS: Heparin 500 UNITS/5 ML SYRINGE IV (10:38)
[2020-02-17] MEDS: Normal Saline Flush 10 ML SYR IVP (10:39)
[2020-02-20] MEDS: Normal Saline Flush 10 ML SYR IVP (09:14)
[2020-02-20 09:19] LABS: Abs Immature Grans 0.05 k/cumm (0.0-0.09); Absolute Basophil Count 0.05 k/cumm (0.0-0.2); Absolute Eosinophil Count 0.35 k/cumm (0.0-0.7); Absolute Monocyte Count 0.72 k/cumm (0.11-0.7); Absolute Neutrophil Count 6.44 k/cumm (1.2-6.7); Basophils % 0.5; Eosinophils % 3.7; HCT 40.2 % (40.0-50.0); HGB 13.3 g/dL (13.5-17.5); Immature Grans % 0.5 %; Mean Corp. HGB Concentration 33.1 g/dL (32.0-36.0); Mean Corpuscular Hemoglobin 32.4 pg (27.0-33.0); Mean Corpuscular Volume 97.8 fL (80-95); Mean Platelet Volume 10.5 fL (8.0-11.0); Monocytes % 7.6; Neutrophils % 67.7; Platelet Count 144 x1000/uL (130-400); RBC 4.11 m/cumm (4.50-6.00); RBC Distribution Width 14.9 % (11.8-14.1); White Blood Cell Count 9.51 k/cumm (4.4-10.8)
[2020-02-20 09:32] LABS: ALT 50 U/L (16-63); AST 35 U/L (15-37); Albumin 3.5 g/dL (3.4-5.0); Alkaline Phosphatase 135 U/L (46-116); Anion Gap 7.5 mmol/L (3-11); BUN 13 mg/dL (7-18); Bilirubin, Total 0.6 mg/dL (0.2-1.0); CO2 27.5 mmol/L (21.0-32.0); CREATININE 1.26 mg/dL (0.70-1.30); Calcium 9.1 mg/dL (8.5-10.1); Chloride 103 mmol/L (98-107); Estimated GFR 55.79 (mL/min/1.73m2); Glucose 140 mg/dL (74-106); Potassium 4.2 mmol/L (3.5-5.1); Sodium 138 mmol/L (136-145); Total Protein 6.9 g/dL (6.4-8.2)
[2020-02-23 10:36] LABS: CEA 10.8 ng/mL (See Note)
== END 2020-02-22 23:59 | disposition home or self-care (01) ==
LOC: INF 02:50
PROVIDERS: PCP Physician Assistant Medical; Visit Provider Internal Medicine Hematology & Oncology
DX: C20 Malignant neoplasm of rectum (principal); C78.00 Secondary malignant neoplasm of unspecified lung; Z45.2 Encounter for adjustment and management of vascular access device
CPT/HCPCS: 36591; 80053; 96523; 82378; 85025

== ENCOUNTER 2020-03-03 16:33 | Emergency (ER) | payer MEDICARE, MEDICAID, SELFPAY ==
--- NOTE | 2020-03-03 16:37 | ED.GENADUL_ITS ---
Discharge Plan Disposition Patient Disposition: HOME Condition: Fair Discharge Details Chief Complaint: SOB Clinical Impression: Bilateral pulmonary embolism Primary Care Provider: Hermes Dejesus V ED Provider: Yoselin Colby Home Meds and New Rx's Prescriptions: New enoxaparin [Lovenox] 80 mg/0.8 mL syringe 70 mg SC Q12H 3 Days Qty: 4.2 RF: 0 Continued herbal drugs Capsule PO DAILY RF: 0 melatonin 5 mg capsule 20 mg PO DAILY RF: 0 coenzyme Q10 10 mg capsule 100 mg PO DAILY RF: 0 prochlorperazine maleate [Compazine] 10 mg tablet 10 mg PO Q6H PRNRF: 0 ondansetron HCl [Zofran] 8 mg tablet 8 mg PO Q8H RF: 0 marijuana oil PO RF: 0 cholecalciferol (vitamin D3) 1,000 unit/drop drops 4,000 unit PO DAILY RF: 0 cannabidiol 100 mg/mL solution 25 mg PO RF: 0 omega-3 fatty acids-fish oil 1 EACH capsule 1 ea PO DAILY RF: 0 Discharge Instructions Instructions: Enoxaparin (Injection), Pulmonary Embolism (ED) Additional Instructions: Encourage water intake. You will need Lovenox dosing twice daily as was instructed by nursing staff. Outpatient DVT ultrasound of your lower extremities has been ordered. They will contact you with appointment time. Please keep your upcoming appointment with oncology on Sunday. If you develop increased shortness of breath, chest pain, difficulty breathing, fevers or other new/worsening symptom please seek care urgently once again. Referrals: Hermes Dejesus V [Primary Care Provider] - Discharge Data Discharge Date/Time-TO BE ENTERED AT DEPARTURE: 03/03/20 21:38 Medical Decision Making Patient is a pleasant 74-year-old gentleman presents with chief complaint of shortness of breath. Reports that this is been going on for several months. I am able to find palliative care note dating back in July at which time the patient had reported exertional shortness of breath. Patient is followed closely by [facility] he has known diagnosis of rectal cancer with metastasis. He reports he is currently undergoing chemotherapy. States that he has had routine imaging of his chest to continue to monitor the metastases in his chest as well as in his liver. He reports that a consultation was made with [facility]. It was during that consultation that the oncologist had noted a concerning area for potential pulmonary embolism and suggested that this may be why the patient is having shortness of breath. No report of PE had been made by radiologist or other providers who had reviewed the imaging previously. He reports no shortness of breath at rest. Reports only exertional dyspnea. Does state that this can limit his day-to-day activities. He denies any recent change in this. States it is been fairly stable for the past several months. He reports that the physician from [facility] that had noted this was able to look back and saw different areas that were of concern for PE some of which had resolved over the course of follow-up imaging. He denies any previous emboli, no DVT. Patient is not anticoagulated. He denies any lower extremity discomfort. On exam, patient does appear chronically ill. He is quite thin. He has normal cardiac and respiratory exam. No calf tenderness or lower extremity edema. I reviewed previous imaging. Last CT scan was obtained 2 weeks ago. However, this had been obtained in order to view patient's metastasis and was not an isolated PE study. Nor do I know if the patient could have right heart strain. As his symptoms have not worsened, I find this less likely. However, I do feel that further laboratory evaluation as well as repeat imaging with a CT for PE protocol would be appropriate. I discussed this plan with the patient who is in agreement. ECG reviewed by Dr. Bowman. Patient is in a normal sinus rhythm with a rate of 74. No acute ischemic changes noted. No right heart strain noted. Contacted by [facility], bilateral pulmonary emboli segmental and subsegmental. No right heart strain noted by radiologist. FINDINGS: Tubes, catheters and devices: Right chest wall port is present. Pulmonary arteries: Acute pulmonary emboli within the bilateral lower lobe segmental and subsegmental arterial branches with overall minimal to mild clot burden. Aorta: No aortic aneurysm. No aortic dissection. Thyroid: Heterogeneous appearance the thyroid gland. Lungs: Re-demonstration of extensive innumerable pulmonary metastases bilaterally. No pneumonia. Pleural space: No pneumothorax. No pleural effusion. Heart: No evidence of right heart strain. No cardiomegaly. No pericardial effusion. Lymph nodes: No enlarged lymph nodes. Bones/joints: No acute fracture. Soft tissues: Unremarkable. IMPRESSION: Acute pulmonary emboli within the bilateral lower lobe segmental and subsegmental arterial branches with overall minimal to mild clot burden and no evidence of right heart strain. Labs reviewed. Patient has leukocytosis with a white count of 13.7. He does re port that he is on Neupogen. He is not anemic. Platelet count is stable. Coags are normal. No significant electrolyte abnormalities. Creatinine is slightly elevated at 1.34 but this is baseline for the patient. He is receiving hydration here. Troponin is less than 0.05. I discussed these findings with the patient. Patient is requesting discharged to home. Patient continues to sat 100% on room air. I did seem to be mild clot burden although I am concerned regarding the number of DVTs. Plan to consult with oncology, have requested consult through [facility]. I did recommend inpatient admission for his multiple PE but patient advises that he will not be staying in the hospital. He would like to receive the appropriate treatment for the PE and continue to follow-up with his oncologist but refuses any form of admission. As a patient is hemodynamically stable and this does sound to be something that is been going on for several months I do feel that this is reasonable particularly as he has no evidence of right heart strain and no hemodynamic compromise. Initial plan is to start the patient on Lovenox with bridge to Coumadin. However, I will consult with oncology prior to beginning these medications. Consulted with Dr. Casiano, she advised only starting Lovenox and holding off on Coumadin. 1mg/kg BID Lovenox. Patient has appointment with oncologist in two days. She did request outpatient ultrasound for DVT study of bilateral lower extremities. I will order this. He does not have clinical findings to suggest DVT in his lower extremity. Patient received a liter of fluids. He is received first dosing of 1 fer per cake of Lovenox. For ease of dosing at home, will order 80 mg vials to be given twice daily. He has an appointment with oncology in 2 days. Patient was given strict return precautions. In particular, we discussed the risk associated with the medications including risk of bleeding as well as risks associated with progression of his pulmonary emboli. All of his questions and concerns were addressed and he is in agreement with this plan. HPI General Mode of arrival: ambulatory . Date/Time Provider Initiated Documentation: 03/03/20 16:37 . Limitations to Documentation: no limitations . Information obtained by: patient and RN notes reviewed . History of Present Illness 74 year old M presents to the emergency department with the chief complaint of shortness of breath, described as moderate, Quality is described as other (denies any CP), Patient started experiencing this month(s) and it has been intermittent. Immobilization improves symptom(s), Movement worsens symptoms (brought on with exertion, none at rest) . Patient notes nausea/vomiting (associates with chemo), shortness of breath and weakness (f atigue, associates with chemo); denies chest pain, cough, fever/chills and syncope. Patient did receive the following treatments prior to arrival, none Related Data Home Medications Medication Instructions Recorded Confirmed omega-3 fatty acids-fish oil 1 ea PO DAILY 05/03/18 03/03/20 cannabidiol 100 mg/mL oral solution 25 mg PO ml 08/12/19 08/12/19 cholecalciferol (vitamin D3) 4,000 unit PO DAILY ml 08/12/19 03/03/20 coenzyme Q10 10 mg capsule 100 mg PO DAILY cap 08/12/19 03/03/20 herbal drugs cap PO DAILY cap 08/12/19 08/12/19 marijuana oil PO 08/12/19 08/12/19 melatonin 5 mg capsule 20 mg PO DAILY cap 08/12/19 03/03/20 ondansetron HCl 8 mg tablet 8 mg PO Q8H 08/12/19 03/03/20 prochlorperazine maleate 10 mg 10 mg PO Q6H PRN 08/12/19 03/03/20 tablet enoxaparin [Lovenox] 70 mg SC Q12H 3 Days #4.2 ml 03/03/20 Previous Rx's Medication Instructions Recorded enoxaparin [Lovenox] 70 mg SC Q12H 3 Days #4.2 ml 03/03/20 Allergies Allergy/AdvReac Type Severity Reaction Status Date / Time No Known Allergies Allergy Unverified 05/30/18 08:35 Review of Systems Constitutional Constitutional: Reports as per HPI, Denies chills, Denies fever(s), Denies headache(s), Reports lethargy and Reports poor appetite Eyes Eyes: Denies change in vision ENT Ears, Nose, Mouth, and Throat: Denies dizziness and Denies headache(s) Cardiovascular Cardiovascular: Reports as per HPI, Denies chest pain at rest, Denies chest pain with activity, Denies diaphoresis, Denies radiating jaw, neck or arm pain, Denies palpitations, Reports dyspnea and Reports dyspnea on exertion Respiratory Respiratory: Reports as per HPI, Denies chest congestion, Denies cough, Denies pain on inspiration, Denies pain with cough, Reports dyspnea, Reports dyspnea on exertion and Denies wheezing Gastrointestinal Gastrointestinal: Reports as per HPI (associates abdominal complaints with recta l cancer and treatment), Reports abdominal pain, Reports diarrhea, Reports nausea and Reports vomiting Genitourinary Genitourinary: Denies system reviewed and no additional complaints, except as documented (denies change in urinary habits) Musculoskeletal Musculoskeletal: Reports as per HPI and Denies back pain Integumentary/Breasts Skin/Breast: Reports as per HPI and Denies rash Neurologic Neurologic: Reports as per HPI, Denies dizziness and Denies headache(s) Endocrine Endocrine: Denies palpitations Allergic/Immunologic Allergic/Immunologic: Denies wheezing PENDING SALE TO [facility] Medical History (Updated 03/03/20 @ 21:02 by AMPARO Orantes) Alternative medicine (Chronic) works with naturopaths regularly 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 Cancer, metastatic to liver (Acute) Colon cancer metastasized to liver (Acute) Colon cancer metastasized to lung (Acute) Fecal incontinence (Acute) Goals of care, counseling/discussion (Acute) Palliative care patient (Acute) Port-A-Cath in place (Acute) Rectal cancer metastasized to lung (Acute) Surgical History (Updated 08/12/19 @ 09:39 by Amanda Mancini RN) Colonoscopy - MAC (05/07/18) History of oral surgery (Acute) salivary gland excision Family History (Updated 08/19/19 @ 07:24 by Maria Fernanda Loaiza MD) Brother , age 55 Lung cancer Smoker Father , age 75, rapid last illness Burkitt's lymphoma Mother , age 83 widely metastatic cancer, presumed GI Gastric cancer Brother Heart disease Stroke Diabetes Daughter No problems noted. Son No problems noted. Daughter No problems noted. 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 What is your relationship status?: living with partner How often do you talk on the phone with friends or family?: three or more times per week How often do you get together with friends or relatives?: three or more times per week Panel score (0-1 are the most socially isolated patients): 2 What type of physical activity do you participate in: walking and irregular exercise Duration: 15-30 minutes/day Frequency: 3-4 times per week Special derrick needs: No Seatbelt use: always Do you feel safe at home: Yes Do you feel safe in your relationship?: Yes Additional Social history: 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 Retired. Lives with retired STUDY ASSISTANT, Gem Gandara. Good friends with his ex-. Had not sought allopathic care for many years until April 2018. Now receiving both allopathic and naturopathic care. Gets BEAR, but feels well otherwise. Exam Const General: cooperative, comfortable, no acute distress, well developed and ill appearing chronically Nutritional Appearance: thin Orientation: alert, awake and oriented x3 HENMT Head: normal to inspection Ears: hearing grossly normal bilaterally Mouth: moist mucous membranes Chest Chest: normal inspection of the chest, normal palpation of entire chest wall and no crepitus Resp Effort & Inspection: normal respiratory effort, able to speak in complete sentences and no respiratory distress Auscultation: clear to auscultation bilaterally, no rales, no rhonchi and no wheezes Cardio Rate: regular rate Rhythm: regular rhythm Heart Sounds: S1 normal and S2 normal GI Inspection: normal to inspection, no edema and non-distended Palpation: soft, no hepatosplenomegaly, not firm, no guarding, not rigid and nontender Skin General skin exam: no rashes or lesions noted Trauma: no lacerations or abrasions Neuro General: patient alert, patient awake and patient oriented x3 Cognition: normal cognition Speech: speech normal Gait: normal gait Extrem General: normal to inspection, capillary refill normal, no pedal edema, no calf tenderness and normal gait Psych Appearance: grossly normal and well kempt Mental Status: mental status grossly normal Speech and Movement: speech and movement normal
[2020-03-03 16:43] VITALS: BP 164/86; PULSE 84; RESP 16; TEMP 36.6; O2SAT 98
--- NOTE | 2020-03-03 17:35 | DI.CT_ITS ---
EXAM: CT CHEST PE CTA CLINICAL HISTORY: SOB. TECHNIQUE: Imaging Protocol: Axial CT angiography was performed with multi-slice acquisition and mu lti-planar and/or 3D reconstructions. CONTRAST MATERIAL: Intravenous: Omnipaque 350 Contrast volume:75 mL COMPARISON: CT CT CHEST/ABD/PEL W from 02/17/2020 FINDINGS: Pulmonary Arteries: Multiple filling defects seen in branches of the pulmonary arteries to the right middle lobe and both lower lobes. Findings are consistent with pulmonary emboli. Tracheobronchial tree: Patent where visualized. Mediastinum and Va: No dominant adenopathy or fluid collection. Pulmonary parenchyma: There are again seen multiple pulmonary metastases. No areas of focal consolid ation. Pleura: No effusion or pneumothorax. Heart: The heart is not dilated. No coronary artery calcifications are seen. No pericardial effusion or evidence of right heart strain. Aorta: Thoracic aorta non-dilated. No evidence of aneurysm or dissection. Upper abdomen: Hepatic metastatic disease is again noted. Bones: Degenerative changes are present. Tubes, Catheters, and Lines: There is a left-sided Oqliga-K-Hozf catheter. IMPRESSION: Findings of acute pulmonary emboli within the right middle lobe and both lower lobes without evidence of right heart strain. RADIATION DOSE DELIVERED: 324.13mGy.cm Total DLP DATA REPOSITORY: All CT scans at this facility are submitted to the National Radiology Data Registry (NRDR) Dose Index Registry (DIR) with the [employer] (ACR). RADIATION OPTIMIZATION: All CT scans at this facility use at least one of these dose optimization te chniques: automated exposure control; mA and/or kV adjustment per patient size (includes targeted exa ms where dose is matched to clinical indication); or iterative reconstruction.
[2020-03-03 17:51] LABS: Abs Immature Grans 0.21 k/cumm (0.0-0.09); Absolute Basophil Count 0.08 k/cumm (0.0-0.2); Absolute Eosinophil Count 0.29 k/cumm (0.0-0.7); Absolute Lymphocyte Count 2.18 k/cumm (1.2-3.4); Basophils % 0.6; Eosinophils % 2.1; HCT 43.4 % (40.0-50.0); HGB 14.5 g/dL (13.5-17.5); Immature Grans % 1.5 %; Lymphocytes % 15.9; Mean Corp. HGB Concentration 33.4 g/dL (32.0-36.0); Mean Corpuscular Hemoglobin 32.4 pg (27.0-33.0); Mean Corpuscular Volume 97.1 fL (80-95); Mean Platelet Volume 11.1 fL (8.0-11.0); Monocytes % 10.9; Platelet Count 149 x1000/uL (130-400); RBC 4.47 m/cumm (4.50-6.00)
[2020-03-03 17:52] LABS: Absolute Monocyte Count 1.49 k/cumm (0.11-0.7); Absolute Neutrophil Count 9.45 k/cumm (1.2-6.7)
[2020-03-03 18:08] LABS: INR 1.1 (0.9-1.1); PTT Activated 20.7 sec (21.0-31.4); Prothrombin Time 11.2 sec (9.3-11.0)
[2020-03-03 18:09] LABS: ALT 44 U/L (16-63); AST 37 U/L (15-37); Albumin 4.1 g/dL (3.4-5.0); Alkaline Phosphatase 162 U/L (46-116); Anion Gap 10.3 mmol/L (3-11); BUN 15 mg/dL (7-18); Bilirubin, Total 0.8 mg/dL (0.2-1.0); CO2 25.7 mmol/L (21.0-32.0); CREATININE 1.34 mg/dL (0.70-1.30); Calcium 9.4 mg/dL (8.5-10.1); Chloride 102 mmol/L (98-107); Estimated GFR 51.97 (mL/min/1.73m2); Glucose 107 mg/dL (74-106); Potassium 3.9 mmol/L (3.5-5.1); Sodium 138 mmol/L (136-145); Total Protein 7.9 g/dL (6.4-8.2); Troponin I < 0.05 ng/mL (<0.06)
[2020-03-03] MEDS: Omnipaque 350 MG/ML 100 ML BTL IJ (18:50)
[2020-03-03] MEDS: Normal Saline - Diluent 50 ML VIAL IV (18:51)
--- NOTE | 2020-03-03 19:05 | DI.VRAD_ITS ---
PROCEDURE INFORMATION: Exam: CT Angiography Chest With Contrast Exam date and time: 03/03/2020 5:37 PM Age: 74 years old Clinical indication: Shortness of breath; Patient HX: Patient on chemo TECHNIQUE: Imaging protocol: Computed tomographic angiography of the chest with intravenous contrast. 3D rendering: MIP and/or 3D reconstructed images were created by the technologist. Radiation optimization: All CT scans at this facility use at least one of these dose optimization techniques: automated exposure control; mA and/or kV adjustment per patient size (includes targeted exams where dose is matched to clinical indication); or iterative reconstruction. Contrast material: OMNIPAQUE 350; Contrast volume: 75 ml; Contrast route: IV; COMPARISON: CT CHEST/ABD/PEL W 02/17/2020 10:04 AM FINDINGS: Tubes, catheters and devices: Right chest wall port is present. Pulmonary arteries: Acute pulmonary emboli within the bilateral lower lobe segmental and subsegmental arterial branches with overall minimal to mild clot burden. Aorta: No aortic aneurysm. No aortic dissection. Thyroid: Heterogeneous appearance the thyroid gland. Lungs: Re-demonstration of extensive innumerable pulmonary metastases bilaterally. No pneumonia. Pleural space: No pneumothorax. No pleural effusion. Heart: No evidence of right heart strain. No cardiomegaly. No pericardial effusion. Lymph nodes: No enlarged lymph nodes. Bones/joints: No acute fracture. Soft tissues: Unremarkable. IMPRESSION: Acute pulmonary emboli within the bilateral lower lobe segmental and subsegmental arterial branches with overall minimal to mild clot burden and no evidence of right heart strain. THIS REPORT CONTAINS FINDINGS THAT MAY BE CRITICAL TO PATIENT CARE. The findings were verbally communicated via telephone conference with FITZ TAN at 7:05 PM EDT on 03/03/2020. The findings were acknowledged and understood. Dictated and Authenticated by: Andry Rosales MD. Ordering:WILLIE Wyatt MD
[2020-03-03 19:32] VITALS: BP 150/76; PULSE 72; RESP 17; TEMP 36.9; O2SAT 100
[2020-03-03] MEDS: Enoxaparin 80 MG/0.8 ML SYR SC (20:34)
[2020-03-03] MEDS: Normal Saline 1,000 ML 1000 ML IV (20:34)
[2020-03-03] MEDS: Enoxaparin 80 MG/0.8 ML SYR 70 MG SC (21:37)
[2020-03-03 21:39] VITALS: BP 148/72; PULSE 74; RESP 16; TEMP 36.9; O2SAT 100
[2020-03-03] MEDS: Heparin 500 UNITS/5 ML SYRINGE (21:42)
== END 2020-03-03 21:38 | disposition home or self-care (01) ==
PROVIDERS: Emergency Provider Physician Assistant; PCP Physician Assistant Medical
DX: I26.99 Other pulmonary embolism without acute cor pulmonale (principal); C20 Malignant neoplasm of rectum; Z95.828 Presence of other vascular implants and grafts; C78.00 Secondary malignant neoplasm of unspecified lung
CPT/HCPCS: 36591; 71275; 80053; 93005; 96360; 96372; 99285; 84484; 85025; 85610; 85730; 93010; J1650; J3490

== ENCOUNTER 2020-03-12 03:01 | Outpatient (CLI) | payer MEDICARE, MEDICAID, SELFPAY ==
--- NOTE | 2020-03-12 | DI.US_ITS ---
EXAM: US EXTREMITY VENOUS BI CLINICAL HISTORY: BILAT PE, INVESTIGATE SOURCE, ACUTE PE WO ACUTE COR PULMONALE,I26.99, ? DVT. TECHNIQUE: Bilateral lower extremity venous ultrasound performed using grayscale, color-flow, and sp ectral Doppler analysis. COMPARISON: No exams were available for comparison FINDINGS: The bilateral common femoral, femoral and popliteal veins demonstrate normal compressibility, augment ation, and color Doppler. The posterior tibial veins are patent. IMPRESSION: Right: Negative for DVT Left: Negative for DVT DATA REPOSITORY:
== END 2020-03-12 03:21 ==
PROVIDERS: PCP Physician Assistant Medical; Visit Provider Internal Medicine Hematology & Oncology
DX: I26.99 Other pulmonary embolism without acute cor pulmonale (principal)
CPT/HCPCS: 93970

== ENCOUNTER 2020-03-19 04:12 | Outpatient (RCR) | payer MEDICARE, MEDICAID, SELFPAY ==
[2020-03-05] MEDS: Normal Saline Flush 10 ML SYR IVP (09:07)
[2020-03-05 09:17] LABS: Abs Immature Grans 0.19 k/cumm (0.0-0.09); Absolute Basophil Count 0.09 k/cumm (0.0-0.2); Absolute Eosinophil Count 0.28 k/cumm (0.0-0.7); Absolute Lymphocyte Count 1.84 k/cumm (1.2-3.4); Basophils % 0.8; Eosinophils % 2.4; HCT 39.1 % (40.0-50.0); HGB 13.1 g/dL (13.5-17.5); Immature Grans % 1.6 %; Lymphocytes % 15.9; Mean Corp. HGB Concentration 33.5 g/dL (32.0-36.0); Mean Corpuscular Hemoglobin 32.6 pg (27.0-33.0); Mean Corpuscular Volume 97.3 fL (80-95); Mean Platelet Volume 10.8 fL (8.0-11.0); Monocytes % 8.6; Neutrophils % 70.7; Platelet Count 144 x1000/uL (130-400); RBC 4.02 m/cumm (4.50-6.00)
[2020-03-05 09:31] LABS: ALT 42 U/L (16-63); AST 33 U/L (15-37); Albumin 3.4 g/dL (3.4-5.0); Alkaline Phosphatase 130 U/L (46-116); Anion Gap 9.2 mmol/L (3-11); BUN 13 mg/dL (7-18); Bilirubin, Total 0.6 mg/dL (0.2-1.0); CO2 25.8 mmol/L (21.0-32.0); CREATININE 1.28 mg/dL (0.70-1.30); Calcium 8.9 mg/dL (8.5-10.1); Chloride 104 mmol/L (98-107); Estimated GFR 54.79 (mL/min/1.73m2); Glucose 130 mg/dL (74-106); Potassium 3.9 mmol/L (3.5-5.1); Sodium 139 mmol/L (136-145); Total Protein 6.7 g/dL (6.4-8.2)
[2020-03-08 10:16] LABS: CEA 13.4 ng/mL (See Note)
[2020-03-19] MEDS: Normal Saline Flush 10 ML SYR IVP (08:56)
[2020-03-19 09:07] LABS: Abs Immature Grans 0.19 k/cumm (0.0-0.09); Absolute Eosinophil Count 0.45 k/cumm (0.0-0.7); Absolute Monocyte Count 1.08 k/cumm (0.11-0.7); Absolute Neutrophil Count 9.55 k/cumm (1.2-6.7); Basophils % 0.8; Eosinophils % 3.5; HCT 40.6 % (40.0-50.0); HGB 13.6 g/dL (13.5-17.5); Immature Grans % 1.5 %; Lymphocytes % 12.3; Mean Corp. HGB Concentration 33.5 g/dL (32.0-36.0); Mean Corpuscular Hemoglobin 32.5 pg (27.0-33.0); Mean Corpuscular Volume 97.1 fL (80-95); Mean Platelet Volume 10.7 fL (8.0-11.0); Monocytes % 8.3; Neutrophils % 73.6; Platelet Count 145 x1000/uL (130-400); RBC 4.18 m/cumm (4.50-6.00); RBC Distribution Width 15.3 % (11.8-14.1); White Blood Cell Count 12.97 k/cumm (4.4-10.8)
[2020-03-19 09:18] LABS: ALT 37 U/L (16-63); AST 26 U/L (15-37); Albumin 3.5 g/dL (3.4-5.0); Alkaline Phosphatase 140 U/L (46-116); Anion Gap 8.8 mmol/L (3-11); BUN 14 mg/dL (7-18); Bilirubin, Total 0.9 mg/dL (0.2-1.0); CO2 26.2 mmol/L (21.0-32.0); CREATININE 1.44 mg/dL (0.70-1.30); Calcium 9.2 mg/dL (8.5-10.1); Chloride 102 mmol/L (98-107); Estimated GFR 47.82 (mL/min/1.73m2); Glucose 182 mg/dL (74-106); Potassium 4.1 mmol/L (3.5-5.1); Sodium 137 mmol/L (136-145)
[2020-03-22 10:33] LABS: CEA 20.2 ng/mL (See Note)
== END 2020-03-23 23:59 | disposition home or self-care (01) ==
LOC: INF 04:12
PROVIDERS: PCP Physician Assistant Medical; Visit Provider Internal Medicine Hematology & Oncology
DX: C20 Malignant neoplasm of rectum (principal); C78.00 Secondary malignant neoplasm of unspecified lung; Z45.2 Encounter for adjustment and management of vascular access device
CPT/HCPCS: 36591; 80053; 82378; 85025

== ENCOUNTER 2020-04-23 04:02 | Outpatient (RCR) | payer MEDICARE, MEDICAID, SELFPAY ==
[2020-04-09] MEDS: Normal Saline Flush 10 ML SYR IVP (08:35)
[2020-04-09 08:52] LABS: Abs Immature Grans 0.06 k/cumm (0.0-0.09); Absolute Basophil Count 0.22 k/cumm (0.0-0.2); Absolute Eosinophil Count 0.41 k/cumm (0.0-0.7); Absolute Lymphocyte Count 1.84 k/cumm (1.2-3.4); Absolute Neutrophil Count 5.41 k/cumm (1.2-6.7); Basophils % 2.5; Eosinophils % 4.6; HGB 12.2 g/dL (13.5-17.5); Immature Grans % 0.7 %; Lymphocytes % 20.6; Mean Corp. HGB Concentration 32.1 g/dL (32.0-36.0); Mean Corpuscular Hemoglobin 31.1 pg (27.0-33.0); Mean Corpuscular Volume 96.9 fL (80-95); Mean Platelet Volume 10.6 fL (8.0-11.0); Monocytes % 11.2; Neutrophils % 60.4; Platelet Count 246 x1000/uL (130-400); RBC 3.92 m/cumm (4.50-6.00); RBC Distribution Width 15.4 % (11.8-14.1); White Blood Cell Count 8.94 k/cumm (4.4-10.8)
[2020-04-09 09:11] LABS: ALT 41 U/L (16-63); AST 41 U/L (15-37); Alkaline Phosphatase 88 U/L (46-116); BUN 21 mg/dL (7-18); Bilirubin, Total 0.7 mg/dL (0.2-1.0); CREATININE 1.37 mg/dL (0.70-1.30); Chloride 102 mmol/L (98-107); Estimated GFR 50.66 (mL/min/1.73m2); Glucose 177 mg/dL (74-106); Potassium 4.1 mmol/L (3.5-5.1); Sodium 137 mmol/L (136-145)
[2020-04-12 10:27] LABS: CEA 18.8 ng/mL (See Note)
[2020-04-23] MEDS: Normal Saline Flush 10 ML SYR IVP (08:15)
[2020-04-23 08:28] LABS: Abs Immature Grans 0.13 10^3/uL (0.0-0.06); Absolute Basophil Count 0.11 10^3/uL (0.0-0.2); Absolute Eosinophil Count 0.55 10^3/uL (0.0-0.7); Absolute Lymphocyte Count 1.93 10^3/uL (1.2-3.4); Absolute Monocyte Count 0.58 10^3/uL (0.1-0.8); Absolute Neutrophil Count 6.65 10^3/uL (1.2-6.7); Basophils % 1.1; Eosinophils % 5.5; HCT 38.3 % (40.0-50.0); HGB 12.5 g/dL (13.5-17.5); Immature Grans % 1.3; Lymphocytes % 19.4; MCHC 32.6 % (32.0-36.0); MPV 11.8 fL (8.0-11.0); Monocytes % 5.8; Neutrophils % 66.9; Platelet Count 127 10^3/uL (130-400); RBC 3.91 10^6/uL (4.36-5.78); RDW 15.9 % (11.8-14.1); RDW-SD 56.8 fL; WBC 9.95 10^3/uL (4.4-10.8)
[2020-04-23 08:51] LABS: ALT 33 U/L (16-63); AST 29 U/L (15-37); Albumin 3.2 g/dL (3.4-5.0); Alkaline Phosphatase 125 U/L (46-116); Anion Gap 6.5 mmol/L (3-11); BUN 21 mg/dL (7-18); Bilirubin, Total 0.6 mg/dL (0.2-1.0); CO2 26.5 mmol/L (21.0-32.0); CREATININE 1.14 mg/dL (0.70-1.30); Calcium 9.2 mg/dL (8.5-10.1); Chloride 105 mmol/L (98-107); Glucose 158 mg/dL (74-106); Potassium 4.1 mmol/L (3.5-5.1); Sodium 138 mmol/L (136-145); Total Protein 6.8 g/dL (6.4-8.2)
[2020-04-26 09:35] LABS: CEA 17.5 ng/mL (See Note)
== END 2020-04-23 23:59 | disposition home or self-care (01) ==
LOC: INF 04:02
PROVIDERS: PCP Physician Assistant Medical; Visit Provider Internal Medicine Hematology & Oncology
DX: C20 Malignant neoplasm of rectum (principal); C78.00 Secondary malignant neoplasm of unspecified lung; Z45.2 Encounter for adjustment and management of vascular access device
CPT/HCPCS: 36591; 80053; 82378; 85025

== ENCOUNTER 2020-05-14 04:35 | Outpatient (RCR) | payer MEDICARE, MEDICAID, SELFPAY ==
[2020-05-14] MEDS: Normal Saline Flush 10 ML SYR IVP (08:19)
[2020-05-14 08:20] LABS: Abs Immature Grans 0.06 10^3/uL (0.0-0.06); Absolute Basophil Count 0.16 10^3/uL (0.0-0.2); Absolute Eosinophil Count 0.25 10^3/uL (0.0-0.7); Absolute Lymphocyte Count 1.96 10^3/uL (1.2-3.4); Basophils % 1.4; Eosinophils % 2.2; HCT 40.2 % (40.0-50.0); Immature Grans % 0.5; MCH 31.9 pg (27.0-33.0); MCHC 32.3 % (32.0-36.0); MCV 98.5 fL (80-95); MPV 11.3 fL (8.0-11.0); Monocytes % 8.7; Neutrophils % 70.2; Nucleated RBC 0 %; Platelet Count 210 10^3/uL (130-400); RBC 4.08 10^6/uL (4.36-5.78); RDW 15.4 % (11.8-14.1); RDW-SD 56.1 fL; WBC 11.55 10^3/uL (4.4-10.8)
[2020-05-14 08:24] LABS: Absolute Neutrophil Count 8.11 10^3/uL (1.2-6.7)
[2020-05-14 08:36] LABS: ALT 52 U/L (16-63); AST 39 U/L (15-37); Albumin 3.3 g/dL (3.4-5.0); Alkaline Phosphatase 118 U/L (46-116); BUN 23 mg/dL (7-18); Bilirubin, Total 0.8 mg/dL (0.2-1.0); CREATININE 1.18 mg/dL (0.70-1.30); Calcium 9.2 mg/dL (8.5-10.1); Chloride 101 mmol/L (98-107); Glucose 153 mg/dL (74-106); Sodium 134 mmol/L (136-145)
[2020-05-17 08:31] LABS: CEA 21.8 ng/mL (See Note)
== END 2020-05-24 23:59 | disposition home or self-care (01) ==
LOC: INF 04:35
PROVIDERS: PCP Physician Assistant Medical; Visit Provider Internal Medicine Hematology & Oncology
DX: C20 Malignant neoplasm of rectum (principal); C78.00 Secondary malignant neoplasm of unspecified lung; Z45.2 Encounter for adjustment and management of vascular access device
CPT/HCPCS: 36591; 80053; 82378; 85025

== ENCOUNTER 2020-05-28 04:33 | Outpatient (CLI) | payer MEDICARE, MEDICAID, SELFPAY ==
[2020-05-28] MEDS: Omnipaque 350 MG/ML 100 ML BTL IJ (10:16)
[2020-05-28] MEDS: Normal Saline - Diluent 50 ML VIAL IV (10:16)
[2020-05-28] MEDS: Breeza Beverage 473 ML BTL PO (10:17)
--- NOTE | 2020-05-28 10:17 | DI.CT_ITS ---
EXAM: CT CHEST/ABD/PEL W CLINICAL HISTORY: RECTAL CA METS TO LIVER/LUNG, C20, C78.7,C78.00 TECHNIQUE: Imaging Protocol: Axial computed tomography images with coronal and sagittal reformatted images were created and reviewed CONTRAST MATERIAL: Intravenous: Omnipaque 350 Contrast volume:100 mL Oral: Yes COMPARISON: CT CT CHEST/ABD/PEL W from 02/17/[address] CHEST PE CTA from 03/03/2020 FINDINGS: CHEST: Tracheobronchial tree: Patent where visualized. Mediastinum and Va: No dominant adenopathy or fluid collection. Small hiatal hernia. Pulmonary parenchyma: Multiple pulmonary metastases several of which appear cavitary. The largest in the left lower lobe is stable in size. There has been an increase in size of 1-2 mm of several of t he nodules. No focal consolidating infiltrates are seen. Pleura: No effusion or pneumothorax. Heart: The heart is not dilated. No coronary artery calcifications are seen. No pericardial effusion. Aorta: Thoracic aorta non-dilated. Lymph nodes: Within normal limits. Bones:Degenerative changes. Tubes, Catheters, and Lines: Left-sided indwelling central venous catheter. Soft tissues: Unremarkable. ABDOMEN: Liver: Normal density. There has been interval increase in size of the hepatic masses since the prior examination from 02/17/2020. The large mass in the dome measures 7.7 x 6.7 cm compared with 6.9 x 5. 7 cm. The mass in the caudal aspect of the right lobe of the liver measures 6.7 cm x 5.2 cm compared with 5.7 x 4.4 cm. Portal, Superior Mesenteric, and Splenic Veins: Unremarkable. Gallbladder and Biliary Tract: No radiodense calculus or dilation. Pancreas: Normal density, no abnormal calcifications or inflammatory process. Spleen: Normal. Adrenals: No masses seen. Kidneys: Normal size, contour and axis. No radiodense stones or obstructive uropathy. No masses seen. Abdominal Aorta: Abdominal portion non-dilated. Atherosclerosis. Bowel: No obstruction or bowel wall thickening. Unchanged rectal wall thickening. Appendix is unrem arkable. Large amount of retained stool. Small hiatal hernia. Peritoneal Cavity: No ascites, collection or mesenteric inflammatory response. Lymph Nodes: Within normal limits. Bones: Unchanged ankylosis of the sacroiliac joints. Degenerative changes are seen in the spine. Soft Tissues: Unremarkable. PELVIS: Bladder: Symmetric distention, no gross wall thickening. Reproductive Organs: Unremarkable as visualized. Lymph Nodes: Within normal limits. Bones: Degenerative changes in the spine. No aggressive osseous lesions are identified. IMPRESSION: 1. Interval increase in size of hepatic metastases since 02/17/2020. 2. Interval small increase in size of several pulmonary metastases. RADIATION DOSE DELIVERED: Total DLP DATA REPOSITORY: All CT scans at this facility are submitted to the National Radiology Data Registry (NRDR) Dose Index Registry (DIR) with the [employer] (ACR). RADIATION OPTIMIZATION: All CT scans at this facility use at least one of these dose optimization te chniques: automated exposure control; mA and/or kV adjustment per patient size (includes targeted exa ms where dose is matched to clinical indication); or iterative reconstruction.
== END 2020-05-28 04:53 ==
PROVIDERS: PCP Physician Assistant Medical; Visit Provider Nurse Practitioner Family
DX: C78.7 Secondary malignant neoplasm of liver and intrahepatic bile duct (principal); C20 Malignant neoplasm of rectum; C78.02 Secondary malignant neoplasm of left lung
CPT/HCPCS: 74177; 96523; 71260; J3490

== ENCOUNTER 2020-06-18 04:28 | Outpatient (RCR) | payer MEDICARE, MEDICAID, SELFPAY ==
[2020-05-28] MEDS: Heparin 500 UNITS/5 ML SYRINGE IV (08:26)
[2020-05-28] MEDS: Normal Saline Flush 10 ML SYR IVP (08:26)
[2020-06-04] MEDS: Normal Saline Flush 10 ML SYR IVP (09:15)
[2020-06-04 09:49] LABS: Abs Immature Grans 0.08 10^3/uL (0.0-0.06); Absolute Basophil Count 0.13 10^3/uL (0.0-0.2); Absolute Eosinophil Count 0.61 10^3/uL (0.0-0.7); Absolute Lymphocyte Count 1.84 10^3/uL (1.2-3.4); Absolute Monocyte Count 1.06 10^3/uL (0.1-0.8); Absolute Neutrophil Count 7.42 10^3/uL (1.2-6.7); Basophils % 1.2; Eosinophils % 5.5; HCT 40.9 % (40.0-50.0); HGB 13.3 g/dL (13.5-17.5); Immature Grans % 0.7; Lymphocytes % 16.5; MCH 31.6 pg (27.0-33.0); MCHC 32.5 % (32.0-36.0); MCV 97.1 fL (80-95); MPV 11.6 fL (8.0-11.0); Monocytes % 9.5; Neutrophils % 66.6; Nucleated RBC 0 %; Platelet Count 203 10^3/uL (130-400); RBC 4.21 10^6/uL (4.36-5.78); RDW 15.1 % (11.8-14.1); RDW-SD 53.8 fL; WBC 11.14 10^3/uL (4.4-10.8)
[2020-06-04 10:07] LABS: ALT 55 U/L (16-63); AST 42 U/L (15-37); Albumin 3.4 g/dL (3.4-5.0); Alkaline Phosphatase 113 U/L (46-116); Anion Gap 6.4 mmol/L (3-11); BUN 17 mg/dL (7-18); Bilirubin, Total 0.7 mg/dL (0.2-1.0); CO2 28.6 mmol/L (21.0-32.0); CREATININE 1.11 mg/dL (0.70-1.30); Calcium 9.3 mg/dL (8.5-10.1); Chloride 103 mmol/L (98-107); Glucose 145 mg/dL (74-106); Potassium 4.1 mmol/L (3.5-5.1); Sodium 138 mmol/L (136-145); Total Protein 7.2 g/dL (6.4-8.2)
[2020-06-07 14:59] LABS: CEA 18.8 ng/mL (See Note)
[2020-06-18] MEDS: Heparin 500 UNITS/5 ML SYRINGE IV (08:53)
[2020-06-18] MEDS: Normal Saline Flush 10 ML SYR IVP (08:53)
[2020-06-18 08:56] LABS: Abs Immature Grans 0.04 10^3/uL (0.0-0.06); Absolute Basophil Count 0.08 10^3/uL (0.0-0.2); Absolute Eosinophil Count 0.11 10^3/uL (0.0-0.7); Absolute Lymphocyte Count 1.71 10^3/uL (1.2-3.4); Basophils % 0.8; Eosinophils % 1.1; HCT 40.1 % (40.0-50.0); HGB 13.2 g/dL (13.5-17.5); Immature Grans % 0.4; Lymphocytes % 17.6; MCH 31.6 pg (27.0-33.0); MCHC 32.9 % (32.0-36.0); MCV 95.9 fL (80-95); MPV 10.6 fL (8.0-11.0); Monocytes % 6.2; Neutrophils % 73.9; Nucleated RBC 0 %; Platelet Count 298 10^3/uL (130-400); RBC 4.18 10^6/uL (4.36-5.78); RDW 14.1 % (11.8-14.1); RDW-SD 49.7 fL; WBC 9.74 10^3/uL (4.4-10.8)
[2020-06-18 09:11] LABS: ALT 48 U/L (16-63); AST 42 U/L (15-37); Albumin 3.5 g/dL (3.4-5.0); Alkaline Phosphatase 86 U/L (46-116); Anion Gap 7.2 mmol/L (3-11); BUN 17 mg/dL (7-18); Bilirubin, Total 1.2 mg/dL (0.2-1.0); CO2 26.8 mmol/L (21.0-32.0); CREATININE 1.19 mg/dL (0.70-1.30); Calcium 9.5 mg/dL (8.5-10.1); Chloride 102 mmol/L (98-107); Glucose 167 mg/dL (74-106); Potassium 4.1 mmol/L (3.5-5.1); Sodium 136 mmol/L (136-145); Total Protein 7.6 g/dL (6.4-8.2)
[2020-06-18 21:55] LABS: CEA 15.6 ng/mL (See Note)
== END 2020-06-23 23:59 | disposition home or self-care (01) ==
LOC: INF 04:28
PROVIDERS: Nurse Practitioner Family; PCP Physician Assistant Medical; Visit Provider Internal Medicine Hematology & Oncology
DX: C78.7 Secondary malignant neoplasm of liver and intrahepatic bile duct (principal); C20 Malignant neoplasm of rectum; Z45.2 Encounter for adjustment and management of vascular access device
CPT/HCPCS: 36591; 80053; 96523; 82378; 85025

== ENCOUNTER 2020-07-23 10:30 | Outpatient (RCR) | payer MEDICARE, MEDICAID, SELFPAY ==
[2020-06-25] MEDS: Normal Saline Flush 10 ML SYR IVP (09:01)
[2020-06-25] MEDS: Heparin 500 UNITS/5 ML SYRINGE IVP (09:02)
[2020-06-25 09:21] LABS: Abs Immature Grans 0.03 10^3/uL (0.0-0.06); Absolute Basophil Count 0.03 10^3/uL (0.0-0.2); Absolute Eosinophil Count 0.35 10^3/uL (0.0-0.7); Absolute Lymphocyte Count 1.27 10^3/uL (1.2-3.4); Absolute Monocyte Count 0.33 10^3/uL (0.1-0.8); Absolute Neutrophil Count 4.33 10^3/uL (1.2-6.7); Basophils % 0.5; Eosinophils % 5.5; HCT 36.4 % (40.0-50.0); HGB 11.9 g/dL (13.5-17.5); Immature Grans % 0.5; MCH 31.5 pg (27.0-33.0); MCHC 32.7 % (32.0-36.0); MCV 96.3 fL (80-95); Monocytes % 5.2; Neutrophils % 68.3; Nucleated RBC 0 %; Platelet Count 209 10^3/uL (130-400); RBC 3.78 10^6/uL (4.36-5.78); RDW 14.1 % (11.8-14.1); RDW-SD 49.2 fL; WBC 6.34 10^3/uL (4.4-10.8)
[2020-06-25 09:28] LABS: ALT 48 U/L (16-63); AST 39 U/L (15-37); Albumin 3.2 g/dL (3.4-5.0); Alkaline Phosphatase 79 U/L (46-116); Anion Gap 9.4 mmol/L (3-11); BUN 22 mg/dL (7-18); Bilirubin, Total 0.9 mg/dL (0.2-1.0); CO2 24.6 mmol/L (21.0-32.0); CREATININE 0.93 mg/dL (0.70-1.30); Calcium 9.2 mg/dL (8.5-10.1); Chloride 105 mmol/L (98-107); Glucose 141 mg/dL (74-106); Potassium 3.9 mmol/L (3.5-5.1); Sodium 139 mmol/L (136-145); Total Protein 6.9 g/dL (6.4-8.2)
[2020-06-25 18:13] LABS: CEA 19.5 ng/mL (See Note)
[2020-07-09 09:48] LABS: Absolute Basophil Count 0.02 10^3/uL (0.0-0.2); Absolute Eosinophil Count 0.08 10^3/uL (0.0-0.7); Absolute Lymphocyte Count 1.21 10^3/uL (1.2-3.4); Absolute Monocyte Count 0.74 10^3/uL (0.1-0.8); Absolute Neutrophil Count 1.72 10^3/uL (1.2-6.7); Basophils % 0.5; Eosinophils % 2.1; HCT 38.1 % (40.0-50.0); HGB 12.2 g/dL (13.5-17.5); Lymphocytes % 32.1; MCH 31.2 pg (27.0-33.0); MCV 97.4 fL (80-95); MPV 10.2 fL (8.0-11.0); Monocytes % 19.6; Neutrophils % 45.7; Nucleated RBC 0 %; Platelet Count 221 10^3/uL (130-400); RBC 3.91 10^6/uL (4.36-5.78); RDW 14.8 % (11.8-14.1); RDW-SD 52.5 fL; WBC 3.77 10^3/uL (4.4-10.8)
[2020-07-09] MEDS: Heparin 500 UNITS/5 ML SYRINGE IVP (09:53)
[2020-07-09] MEDS: Normal Saline Flush 10 ML SYR IVP (09:53)
[2020-07-09 10:01] LABS: ALT 38 U/L (16-63); AST 43 U/L (15-37); Albumin 3.3 g/dL (3.4-5.0); Alkaline Phosphatase 88 U/L (46-116); Anion Gap 8.1 mmol/L (3-11); BUN 14 mg/dL (7-18); Bilirubin, Total 1.2 mg/dL (0.2-1.0); CO2 26.9 mmol/L (21.0-32.0); CREATININE 0.95 mg/dL (0.70-1.30); Chloride 102 mmol/L (98-107); Glucose 154 mg/dL (74-106); Potassium 3.9 mmol/L (3.5-5.1); Sodium 137 mmol/L (136-145); Total Protein 7.1 g/dL (6.4-8.2)
[2020-07-09 17:43] LABS: CEA 39.9 ng/mL (See Note)
[2020-07-23] MEDS: Normal Saline Flush 10 ML SYR IVP (10:45)
[2020-07-23] MEDS: Heparin 500 UNITS/5 ML SYRINGE IVP (10:45)
[2020-07-23 11:02] LABS: Abs Immature Grans 0.03 10^3/uL (0.0-0.06); Absolute Basophil Count 0.03 10^3/uL (0.0-0.2); Absolute Eosinophil Count 0.01 10^3/uL (0.0-0.7); Absolute Lymphocyte Count 1.31 10^3/uL (1.2-3.4); Absolute Monocyte Count 0.25 10^3/uL (0.1-0.8); Absolute Neutrophil Count 3.08 10^3/uL (1.2-6.7); Basophils % 0.6; Eosinophils % 0.2; HCT 34.1 % (40.0-50.0); HGB 11.5 g/dL (13.5-17.5); Immature Grans % 0.6; Lymphocytes % 27.8; MCH 31.3 pg (27.0-33.0); MCHC 33.7 % (32.0-36.0); MCV 92.9 fL (80-95); MPV 10.4 fL (8.0-11.0); Monocytes % 5.3; Neutrophils % 65.5; Nucleated RBC 0 %; Platelet Count 170 10^3/uL (130-400); RBC 3.67 10^6/uL (4.36-5.78); RDW 13.6 % (11.8-14.1); RDW-SD 46.1 fL; WBC 4.71 10^3/uL (4.4-10.8)
[2020-07-23 11:18] LABS: ALT 48 U/L (16-63); AST 34 U/L (15-37); Albumin 3.5 g/dL (3.4-5.0); Alkaline Phosphatase 91 U/L (46-116); Anion Gap 8.2 mmol/L (3-11); BUN 21 mg/dL (7-18); Bilirubin, Total 1.1 mg/dL (0.2-1.0); CO2 26.8 mmol/L (21.0-32.0); CREATININE 0.97 mg/dL (0.70-1.30); Chloride 103 mmol/L (98-107); Glucose 125 mg/dL (74-106); Potassium 3.8 mmol/L (3.5-5.1); Sodium 138 mmol/L (136-145); Total Protein 7.1 g/dL (6.4-8.2)
[2020-07-28 17:11] LABS: CEA 27.1 ng/ml
== END 2020-07-24 23:59 | disposition home or self-care (01) ==
LOC: INF 10:30
PROVIDERS: PCP Physician Assistant Medical; Visit Provider Nurse Practitioner Family
DX: C20 Malignant neoplasm of rectum (principal); Z45.2 Encounter for adjustment and management of vascular access device; C78.7 Secondary malignant neoplasm of liver and intrahepatic bile duct; C78.00 Secondary malignant neoplasm of unspecified lung
CPT/HCPCS: 36591; 80053; 82378; 85025

== ENCOUNTER 2020-07-29 00:46 | Outpatient (CLI) | payer MEDICARE, MEDICAID, SELFPAY ==
[2020-07-29] MEDS: Omnipaque 350 MG/ML 50 ML BTL IJ (08:36)
--- NOTE | 2020-07-29 10:24 | DI.CT_ITS ---
EXAM: CT CHEST/ABD/PEL W CLINICAL HISTORY: COLON CA METASTASIZED TO LIVER AND LUNG,C78.00,C18.9,C78.7,PE,T81.718A, TECHNIQUE: Imaging Protocol: Axial computed tomography images with coronal and sagittal reformatted images were created and reviewed CONTRAST MATERIAL: Intravenous: Omnipaque 350 Contrast volume:100 mL Oral: Yes COMPARISON: CT CT CHEST/ABD/PEL W from 05/28/2020 FINDINGS: CHEST: Tracheobronchial tree: Patent where visualized. Mediastinum and Va: No dominant adenopathy or fluid collection. Pulmonary parenchyma: There are again seen multiple pulmonary metastases. Interval increase in size of several of the metastases is noted. Previously noted mass in the left lower lobe now measures 2.2 x 1.6 cm. This compares to 2 x 1.4 cm. There is a nodule in the right apex measuring 1.2 x 1.2 cm compared with 0.9 x 0.8 cm. No focal consolidating infiltrates are present. Pleura: No effusion or pneumothorax. Heart: The heart is not dilated. No coronary artery calcifications are seen. No significant pericardi al effusion. Aorta: Thoracic aorta non-dilated. Lymph nodes: Within normal limits. Bones:Degenerative changes. Bone islands are again seen in the left scapula. Tubes, Catheters, and Lines: The patient has a left-sided central venous catheter. Soft tissues: Unremarkable. ABDOMEN: Liver: Normal density. The mass in the dome of the liver now measures 8.9 x 7.3 cm. This compares wi th 7.7 x 6.7 cm on the prior examination. The lesion in the caudal aspect of the liver measures 7.1 x 5.6 cm. This compares to 6.7 x 5.8 cm on the prior examination. The smaller lesions have likewise shown interval increase in size. Portal, Superior Mesenteric, and Splenic Veins: Unremarkable. Gallbladder and Biliary Tract: No radiodense calculus or dilation. Pancreas: Normal density, no abnormal calcifications or inflammatory process. Spleen: Normal. Adrenals: No masses seen. Kidneys: Normal size, contour and axis. No radiodense stones or obstructive uropathy. No masses seen. Abdominal Aorta: Abdominal portion non-dilated. Mild atherosclerosis. Bowel: No obstruction or bowel wall thickening. Appendix is unremarkable. There is persistent rectal wall thickening. There is persistent soft tissue the perirectal region with involvement which is ind istinct from the adjacent prostate gland and seminal vesicle on the right. Scattered colonic diverti cula are seen. There is a moderate amount of stool throughout the colon. Small hiatal hernia. Peritoneal Cavity: No ascites, collection or mesenteric inflammatory response. Lymph Nodes: Within normal limits. 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 Degenerative changes are seen in the spine . No suspicious lytic or sclerotic lesions are present. Soft Tissues: Unremarkable. PELVIS: Bladder: Symmetric distention, no gross wall thickening. Reproductive Organs: Please see the above section on the bowel. Lymph Nodes: Within normal limits. Bones: Please see the above section. IMPRESSION: 1. Interval increase in size of hepatic metastases. 2. Rectal wall thickening and infiltration of the surrounding perirectal soft tissues as described ab ove. This is unchanged. 3. Progressive pulmonary metastatic disease. RADIATION DOSE DELIVERED: 1,318.38mGy.cm Total DLP DATA REPOSITORY: All CT scans at this facility are submitted to the National Radiology Data Registry (NRDR) Dose Index Registry (DIR) with the [employer] ([employer]). RADIATION OPTIMIZATION: All CT scans at this facility use at least one of these dose optimization te chniques: automated exposure control; mA and/or kV adjustment per patient size (includes targeted exa ms where dose is matched to clinical indication); or iterative reconstruction.
[2020-07-29] MEDS: Omnipaque 350 MG/ML 100 ML BTL IJ (10:25)
[2020-07-29] MEDS: Normal Saline - Diluent 50 ML VIAL IV (10:26)
== END 2020-07-29 01:06 ==
PROVIDERS: PCP Physician Assistant Medical; Visit Provider Nurse Practitioner Family
DX: C78.02 Secondary malignant neoplasm of left lung (principal); C78.7 Secondary malignant neoplasm of liver and intrahepatic bile duct; C18.9 Malignant neoplasm of colon, unspecified; R91.1 Solitary pulmonary nodule
CPT/HCPCS: 74177; 96523; 71260; J3490; Q9967

== ENCOUNTER 2020-08-11 11:30 | Outpatient (RCR) | payer MEDICARE, MEDICAID, SELFPAY ==
[2020-07-29] MEDS: Normal Saline Flush 10 ML SYR IVP (10:00)
[2020-07-29] MEDS: Heparin 500 UNITS/5 ML SYRINGE IV (10:00)
[2020-08-06] MEDS: Heparin 500 UNITS/5 ML SYRINGE IV (12:11)
[2020-08-06] MEDS: Normal Saline Flush 10 ML SYR IVP (12:11)
[2020-08-06 12:37] LABS: Abs Immature Grans 0.01 10^3/uL (0.0-0.06); Absolute Basophil Count 0.02 10^3/uL (0.0-0.2); Absolute Eosinophil Count 0.04 10^3/uL (0.0-0.7); Absolute Monocyte Count 0.74 10^3/uL (0.1-0.8); Absolute Neutrophil Count 0.95 10^3/uL (1.2-6.7); Basophils % 0.6; Eosinophils % 1.3; HCT 34.9 % (40.0-50.0); HGB 11.6 g/dL (13.5-17.5); Immature Grans % 0.3; Lymphocytes % 44.3; MCH 31.8 pg (27.0-33.0); MCHC 33.2 % (32.0-36.0); MCV 95.6 fL (80-95); MPV 10.2 fL (8.0-11.0); Monocytes % 23.4; Neutrophils % 30.1; Nucleated RBC 0 %; RBC 3.65 10^6/uL (4.36-5.78); RDW 15.8 % (11.8-14.1); RDW-SD 55.6 fL; WBC 3.16 10^3/uL (4.4-10.8)
[2020-08-06 12:52] LABS: ALT 39 U/L (16-63); AST 40 U/L (15-37); Albumin 3.6 g/dL (3.4-5.0); Alkaline Phosphatase 89 U/L (46-116); Anion Gap 9.9 mmol/L (3-11); BUN 20 mg/dL (7-18); Bilirubin, Total 0.6 mg/dL (0.2-1.0); CO2 26.1 mmol/L (21.0-32.0); CREATININE 0.92 mg/dL (0.70-1.30); Calcium 9.1 mg/dL (8.5-10.1); Chloride 103 mmol/L (98-107); Glucose 103 mg/dL (74-106); Potassium 4.2 mmol/L (3.5-5.1); Sodium 139 mmol/L (136-145); Total Protein 7.5 g/dL (6.4-8.2)
[2020-08-06 12:56] LABS: Diff Comment Agrees w/ Instrument; Platelet Count 284 10^3/uL (130-400)
[2020-08-06 12:57] LABS: RBC Morphology Normal
[2020-08-09 16:57] LABS: CEA 41.1 ng/ml
[2020-08-11] MEDS: Normal Saline Flush 10 ML SYR IVP (11:30)
[2020-08-11] MEDS: Heparin 500 UNITS/5 ML SYRINGE IV (11:30)
[2020-08-11 11:44] LABS: Abs Immature Grans 0.05 10^3/uL (0.0-0.06); Absolute Basophil Count 0.06 10^3/uL (0.0-0.2); Absolute Eosinophil Count 0.02 10^3/uL (0.0-0.7); Absolute Lymphocyte Count 1.77 10^3/uL (1.2-3.4); Absolute Monocyte Count 0.96 10^3/uL (0.1-0.8); Absolute Neutrophil Count 3.99 10^3/uL (1.2-6.7); Basophils % 0.9; Eosinophils % 0.3; HCT 36.8 % (40.0-50.0); HGB 12.2 g/dL (13.5-17.5); Immature Grans % 0.7; Lymphocytes % 25.8; MCH 31.8 pg (27.0-33.0); MCHC 33.2 % (32.0-36.0); MCV 95.8 fL (80-95); MPV 10.7 fL (8.0-11.0); Neutrophils % 58.3; Nucleated RBC 0 %; Platelet Count 305 10^3/uL (130-400); RBC 3.84 10^6/uL (4.36-5.78); RDW 15.6 % (11.8-14.1); RDW-SD 54.2 fL; WBC 6.85 10^3/uL (4.4-10.8)
[2020-08-11 12:05] LABS: ALT 38 U/L (16-63); AST 38 U/L (15-37); Albumin 3.5 g/dL (3.4-5.0); Alkaline Phosphatase 99 U/L (46-116); Anion Gap 9.1 mmol/L (3-11); BUN 21 mg/dL (7-18); Bilirubin, Total 0.6 mg/dL (0.2-1.0); CO2 26.9 mmol/L (21.0-32.0); CREATININE 0.99 mg/dL (0.70-1.30); Calcium 9.2 mg/dL (8.5-10.1); Chloride 103 mmol/L (98-107); Glucose 123 mg/dL (74-106); Potassium 4.2 mmol/L (3.5-5.1); Sodium 139 mmol/L (136-145); Total Protein 7.8 g/dL (6.4-8.2)
[2020-08-13 09:37] LABS: CEA 42.2 ng/ml
== END 2020-08-23 23:59 | disposition home or self-care (01) ==
LOC: INF 11:30
PROVIDERS: PCP Physician Assistant Medical; Visit Provider Nurse Practitioner Family
DX: C20 Malignant neoplasm of rectum (principal); Z45.2 Encounter for adjustment and management of vascular access device; C78.7 Secondary malignant neoplasm of liver and intrahepatic bile duct; C78.00 Secondary malignant neoplasm of unspecified lung
CPT/HCPCS: 36591; 80053; 96523; 82378; 85025

== ENCOUNTER 2020-09-03 03:19 | Outpatient (RCR) | payer MEDICARE, MEDICAID, SELFPAY ==
[2020-09-03] MEDS: Normal Saline Flush 10 ML SYR IVP (10:02)
[2020-09-03] MEDS: Heparin 500 UNITS/5 ML SYRINGE IV (10:02)
[2020-09-03 10:13] LABS: Abs Immature Grans 0.05 10^3/uL (0.0-0.06); Absolute Basophil Count 0.06 10^3/uL (0.0-0.2); Absolute Eosinophil Count 0.54 10^3/uL (0.0-0.7); Absolute Lymphocyte Count 1.36 10^3/uL (1.2-3.4); Absolute Monocyte Count 0.92 10^3/uL (0.1-0.8); Absolute Neutrophil Count 5.79 10^3/uL (1.2-6.7); Basophils % 0.7; Eosinophils % 6.2; HCT 38.3 % (40.0-50.0); HGB 12.3 g/dL (13.5-17.5); Immature Grans % 0.6; Lymphocytes % 15.6; MCHC 32.1 % (32.0-36.0); MCV 93.4 fL (80-95); MPV 10.7 fL (8.0-11.0); Monocytes % 10.6; Neutrophils % 66.3; Nucleated RBC 0 %; Platelet Count 258 10^3/uL (130-400); RDW 13.9 % (11.8-14.1); RDW-SD 47.8 fL; WBC 8.72 10^3/uL (4.4-10.8)
[2020-09-03 10:26] LABS: ALT 45 U/L (16-63); AST 44 U/L (15-37); Albumin 3.4 g/dL (3.4-5.0); Alkaline Phosphatase 105 U/L (46-116); Anion Gap 8.5 mmol/L (3-11); BUN 19 mg/dL (7-18); Bilirubin, Total 0.5 mg/dL (0.2-1.0); CO2 27.5 mmol/L (21.0-32.0); CREATININE 1.04 mg/dL (0.70-1.30); Calcium 9.2 mg/dL (8.5-10.1); Chloride 101 mmol/L (98-107); Glucose 166 mg/dL (74-106); Potassium 4.1 mmol/L (3.5-5.1); Sodium 137 mmol/L (136-145)
[2020-09-03 19:21] LABS: CEA 34.5 ng/mL (See Note)
== END 2020-09-23 23:59 | disposition home or self-care (01) ==
LOC: INF 03:19
PROVIDERS: Nurse Practitioner Family; PCP Physician Assistant Medical; Visit Provider Internal Medicine Hematology & Oncology
DX: C20 Malignant neoplasm of rectum (principal); Z45.2 Encounter for adjustment and management of vascular access device; C78.7 Secondary malignant neoplasm of liver and intrahepatic bile duct; C78.00 Secondary malignant neoplasm of unspecified lung
CPT/HCPCS: 36591; 80053; 82378; 83735; 85025